=== PATIENT | male | born 1955 | race Caucasian/White ===

== ENCOUNTER 2023-11-23 11:11 | Inpatient (IN) | payer MEDICARE, SELFPAY ==
[2023-11-23] VITALS (17 sets, daily range): BP systolic 93–143; BP diastolic 72–109; PULSE 93–133; RESP 17–25; TEMP 36.6; O2SAT 91–99
--- NOTE | 2023-11-23 11:16 | ECG_ITS ---
[facility] Test Date: 2023-11-23 Pat Name: Ruslan Zuniga Department: Room: Gender: Male Battery Filler: : 1955 Requested By: Clay Lr Order Number: [id number] Ami MD: Mehran Singh M.D. Measurements Intervals [place] Rate: 135 P: 263 FL: 86 QRS: 242 QRSD: 162 T: 74 QT: 333 QTc: 500 Interpretive Statements Supraventricular tachycardia with aberrancy RIGHT AXIS DEVIATION [QRS AXIS > 100] INTRAVENTRICULAR CONDUCTION DELAY [130+ ms QRS DURATION] No previous ECG available for comparison Electronically Signed On 11-24-2023 16:26:59 BATH DESIGN SALES CONSULTANT by Mehran Singh M.D. [email or web address]/OM/[id number]
--- NOTE | 2023-11-23 11:17 | XRR_ITS ---
PROCEDURE INFORMATION: Exam: XR Chest Exam date and time: 11/23/2023 11:51 AM Age: 68 years old Clinical indication: Shortness of breath; Prior surgery; Surgery date: 6+ months; Surgery type: Heart; Additional info: SOB TECHNIQUE: Imaging protocol: Radiologic exam of the chest. Views: 1 view. COMPARISON: No relevant prior studies available. FINDINGS: Lungs: Unremarkable. No consolidation. Pleural spaces: Unremarkable. No pleural effusion. No pneumothorax. Heart/Mediastinum: Moderate cardiomegaly. Bones/joints: Metallic sternotomy wires are present. XR/XR chest 1V portable [id number] IMPRESSION: 1. No acute findings. 2. Metallic sternotomy wires are present 3. Moderate cardiomegaly
[2023-11-23 11:32] LABS: Basophils # 0.1 10^3/uL (0.0-0.1); Basophils % 0.6 %; Eosinophils % 0.3 %; Hematocrit 49.6 % (37-53); Lymphocytes # 0.7 10^3/uL (0.8-4.8); Lymphocytes % 6.2 %; Mean Corpuscular HGB Conc 33.3 g/dL (30-55); Mean Corpuscular Volume 93.1 fl (82-101); Mean Platelet Volume 9.8 fL (7.4-10.4); Monocytes # 0.8 10^3/uL (0.2-0.9); Monocytes % 6.7 %; Neutrophils # 10.04 10^3/uL (1.8-7.7); Neutrophils % 85.7 %; Nucleated Red Blood Cells % 0 %; Platelet Count 267 10^3/cmm (157-399); Red Blood Count 5.33 10^6/uL (3.85-5.65); Red Cell Distribution Width 14.4 % (12.1-15.1); White Blood Count 11.71 10^3/uL (3.29-11.43)
--- NOTE | 2023-11-23 11:41 | ED_ITS ---
HPI - SOB/Dyspnea 2 General: Chief Complaint: Shortness of Breath/Dyspnea Stated Complaint: SOB Time Seen by Provider: 11/23/23 11:13 Source: patient and EMS Mode of arrival: EMS Limitations: no limitations History of Present Illness: HPI Narrative: 68-year-old male who states that he has been having increasing shortness of breath over the last 2 days patient's never been here before he is visiting from [place] he is not a great historian he states he just had gotten over pneumonia and had been at the hospital there. He denies any chest pain states he just feels dyspneic Associated symptoms: Deny abdominal pain, chest pain, fever(s), nausea or vomiting Review of Systems 2 Const: Denies: fever(s), chills, body aches or change in appetite Eyes: Denies: blurry vision or eye discomfort ENMT: Denies: throat pain or dental pain Card: Denies: chest pain Resp: Reports: dyspnea GI: Denies: abdominal pain, nausea, vomiting or diarrhea Musc: Denies: neck pain or back pain Skin/Breast: Denies: rash Neuro: Denies: headache(s) Physical Exam 2 Const: COMMON NORMALS: patient oriented x3 HENMT: COMMON NORMALS: normocephalic and atraumatic HEAD & SCALP: n ormocephalic and atraumatic Eye: COMMON NORMALS: Equal, round and reactive pupils present and EOMs intact bilaterally PUPIL: Yes Equal, round and reactive pupils present Neck/C-Spine: COMMON NORMALS: full ROM and supple Chest: COMMONS NORMALS: normal inspection of the chest and normal palpation of entire chest wall Resp: COMMON NORMALS: normal respiratory effort, No retractions, No use of accessory muscles and clear to auscultation bilaterally AUSCULTATION: clear to auscultation bilaterally Cardio: COMMON NORMALS: regular rhythm and No murmurs present (Cardio) R ATE: tachycardic RHYTHM: regular rhythm GI: COMMON NORMALS: Normal to inspection, nondistended, normoactive bowel sounds present, Soft to palpation, non-tender and no masses PALPATION: Yes Soft to palpation Extremity: COMMON NORMALS: normal to inspection and full ROM Neuro: COMMON NORMALS: patient oriented x3, moves all extremities and no focal motor deficits Psych: COMMON NORMALS: mental status grossly normal, Normal thought process present and cooperative THOUGHT PROCESS: Normal thought process present Skin: COMMON NORMALS: no rashes or lesions noted and no wounds GENERAL SKIN EXAM: no rashes or lesions noted Course 2 Vital Signs: Vital signs: Vital Signs Temperature 97.8 F 11/23/23 11:12 Pulse Rate 106 H 11/23/23 13:02 Respiratory Rate 25 H 11/23/23 13:02 Blood Pressure 124/95 11/23/23 13:02 Pulse Oximetry 95 11/23/23 13:02 Oxygen Delivery Me thod Room Air 11/23/23 13:02 MDM - SOB/Dyspnea Medical Decision Making Patient presents here with shortness of breath CT shows a pneumonia also has elevated BNP with possible CHF we will start antibiotics did give a dose of Lasix spoke to the hospitalist will admit. Medical Records I reviewed the patient's medical records. Lab Data I reviewed the patient's lab results. 11/23/23 10:57 11/23/23 10:57 Labs/Radiology: Radiology Impressions Chest X-Ray 11/23/23 11:17 IMPRESSION: 1. No acute findings. 2. Metallic sternotomy wires are present 3. Moderate cardiomegaly Chest CTA 11/23/23 11:59 IMPRESSION: 1. Negative pulmonary embolism. 2. The aorta and left ventricle are not filled with contrast. 3. Metallic sternotomy wires are present. 4. Bilateral pleural effusions 5 Bilateral perihilar and lower lobe pneumonia Laboratory Results WBC 11.71 10^3/uL (3.29-11.43) H 11/23/23 10:57 RBC 5.33 10^6/uL (3.85-5.65) 11/23/23 10:57 Hgb 16.50 g/dL (11.27-16.99) 11/23/23 10:57 Hct 49.6 % (37-53) 11/23/23 10:57 MCV 93.1 fl (82-101) 11/23/23 10:57 MCH 31.0 pg (27-33) 11/23/23 10:57 MCHC 33.3 g/dL (30-55) 11/23/23 10:57 RDW 14.4 % (12.1-15.1) 11/23/23 10:57 Plt Count 267 10^3/cmm (157-399) 11/23/23 10:57 MPV 9.8 fL (7.4-10.4) 11/23/23 10:57 Neut % (Auto) 85.7 % 11/23/23 10:57 Lymph % (Auto) 6.2 % 11/23/23 10:57 Dare % (Auto) 6.7 % 11/23/23 10:57 Eos % (Auto) 0.3 % 11/23/23 10:57 Baso % (Auto) 0.6 % 11/23/23 10:57 Neut # (Auto) 10.04 10^3/uL (1.8-7.7) H 11/23/23 10:57 Lymph # (Auto) 0.7 10^3/uL (0.8-4.8) L 11/23/23 10:57 Dare # (Auto) 0.8 10^3/uL (0.2-0.9) 11/23/23 10:57 Eos # (Auto) 0.0 10^3/uL (0.0-0.8) 11/23/23 10:57 Baso # (Auto) 0.1 10^3/uL (0.0-0.1) 11/23/23 10:57 Nucleated RBC % (auto) 0 % 11/23/23 10:57 Nucleated RBCs # 0.0 /100WBC 11/23/23 10:57 PT 14.90 SECONDS (12.1-14.9) 11/23/23 10:57 INR 1.13 (0.8-1.2) 11/23/23 10:57 D-Dimer 0.70 ug/mLFEU (0-0.59) H 11/23/23 10:57 Sodium 132 mmol/L (136-145) L 11/23/23 10:57 Potassium 3.8 mmol/L (3.5-5.1) 11/23/23 10:57 Chloride 94 mmol/L (98-107) L 11/23/23 10:57 Carbon Dioxide 29 mmol/L (22-29) 11/23/23 10:57 Anion Gap 12.8 (5-19) 11/23/23 10:57 BUN 23 mg/dL (8-23) 11/23/23 10:57 Creatinine 0.9 mg/dL (0.7-1.2) 11/23/23 10:57 GFR Calculation 83.4 mL/min (90-130) L 11/23/23 10:57 Glucose 108 mg/dL (65-115) 11/23/23 10:57 Calculated Osmolality 278 mOsm/kg (285-295) L 11/23/23 10:57 Calcium 9.9 mg/dL (8.5-10.5) 11/23/23 10:57 Magnesium 1.9 mg/dL (1.7-2.3) 11/23/23 10:57 Magnesium Cancelled 11/23/23 10:57 Total Bilirubin 1.1 mg/dL (0.15-1.2) 11/23/23 10:57 AST 26 U/L (0-40) 11/23/23 10:57 ALT 16 U/L (0-41) 11/23/23 10:57 Alkaline Phosphatase 134 U/L (40-130) H 11/23/23 10:57 Troponin T Baseline 42 ng/L (0-15) H 11/23/23 10:57 Troponin T 120 Minute 36.84 ng/L (0-15) H 11/23/23 12:53 Delta Troponin T -5.16 ABS# (0-10) L 11/23/23 12:53 NT-Pro-B Natriuret Pep 51745 pg/mL (0-125) H 11/23/23 10:57 Total Protein 7.5 g/dL (6.6-8.7) 11/23/23 10:57 Albumin 3.9 g/dL (3.5-5.2) 11/23/23 10:57 Globulin 3.6 g/dL (1.3-4.6) 11/23/23 10:57 All radiology interpretation(s) finalized by discharge EKG Data EKG 2: I personally reviewed and interpreted this EKG as follows: EKG Interpretation Date: 11/23/23 EKG interpretation time: 11:51 Interpretation: atrial tachycardion no st elevation qrs 176 qtc 483 Discharge Plan Discharge Patient Disposition: Admitted As Inpatient Clinical Impression: Congestive heart failure, Community acquired pneumonia Condition: Stable Prescriptions: No Action No Known Home Medications Coding Level of Care Code ED Sales Producer for Chg Marleni
[2023-11-23 11:43] LABS: INR 1.13 (0.8-1.2)
[2023-11-23] MEDS: metoprolol tartrate 1 mg/1 mL SDV 5 mL 5 MG IVP ×2 (11:43→12:59)
[2023-11-23] MEDS: sodium chloride 0.9% 500 ML 999 ML IV (11:45)
[2023-11-23 11:51] LABS: Troponin(5th) Baseline 42 ng/L (0-15)
[2023-11-23 11:52] LABS: Alanine Aminotransferase 16 U/L (0-41); Albumin Level 3.9 g/dL (3.5-5.2); Alkaline Phosphatase 134 U/L (40-130); Anion Gap 12.8 (5-19); Aspartate Amino Transferase 26 U/L (0-40); Blood Urea Nitrogen 23 mg/dL (8-23); Calcium 9.9 mg/dL (8.5-10.5); Carbon Dioxide 29 mmol/L (22-29); Chloride 94 mmol/L (98-107); Globulin 3.6 g/dL (1.3-4.6); Glomerular Filtration Rate 83.4 mL/min (90-130); Glucose 108 mg/dL (65-115); Magnesium 1.9 mg/dL (1.7-2.3); Osmolality Calculated 278 mOsm/kg (285-295); Potassium 3.8 mmol/L (3.5-5.1); Sodium 132 mmol/L (136-145); Total Bilirubin 1.1 mg/dL (0.15-1.2); Total Protein 7.5 g/dL (6.6-8.7)
--- NOTE | 2023-11-23 11:54 | PC.PHAR ---
pt states he takes no rx or otc medications-pt states he was in the hospital in [facility] and was prescribed some medications but states they got lost or stolen states he filled them at [facility] in [facility] called emmanuelle they [phone] havent filled anything for the pt since 08/27/23 30d/s for lexapro 10mg daily-[facility] [place] [phone] they have rxs on hold from 08/06/2023 from a metoprolol succ er 25mg daily,lasix 40mg daily and lisinopril 5mg daily not filled just on hold-[facility]-
--- NOTE | 2023-11-23 11:59 | CTR_ITS ---
PROCEDURE INFORMATION: Exam: CTA Chest With Contrast Exam date and time: 11/23/2023 12:33 PM Age: 68 years old Clinical indication: Shortness of breath; Prior surgery; Surgery date: 6+ months; Surgery type: Heart; Additional info: SOB TECHNIQUE: Imaging protocol: Computed tomographic angiography of the chest with contrast. Exam focused on the arteries. 3D rendering (Not supervised by radiologist): MIP and/or 3D reconstructed images were created by the technologist. Radiation optimization: All CT scans at this facility use at least one of these dose optimization techniques: automated exposure control; mA and/or kV adjustment per patient size (includes targeted exams where dose is matched to clinical indication); or iterative reconstruction. Contrast material: OMNI 350; Contrast volume: 82 ml; Contrast route: INTRAVENOUS (IV); COMPARISON: CR (CHEST, ) 11/23/2023 11:51 AM RADIATION DOSE METRICS: Total DLP (mGy-cm): 224.37 FINDINGS: Pulmonary arteries: Normal. No pulmonary emboli. Aorta: Not opacified with contrast. No gross abnormality is seen. No aortic aneurysm. No aortic dissection. Lungs: Bilateral perihilar and lower lobe parenchymal densities. These findings are consistent with pneumonia No masses. Pleural spaces: Unremarkable. No pneumothorax. No pleural effusion. Heart: Left ventricle is not opacified with contrast which likely is due to timing of the contrast bolus. No cardiomegaly. No pericardial effusion. Lymph nodes: Unremarkable. No enlarged lymph nodes. Bones/joints: Metallic sternotomy wires are present. No acute fracture. Soft tissues: Unremarkable. CT/CT angio chest PE protcl [id number] IMPRESSION: 1. Negative pulmonary embolism. 2. The aorta and left ventricle are not filled with contrast. 3. Metallic sternotomy wires are present. 4. Bilateral pleural effusions 5 Bilateral perihilar and lower lobe pneumonia
[2023-11-23 12:01] LABS: NT Pro B Type Natriuretic Pept 29029 pg/mL (0-125)
[2023-11-23] MEDS: iohexol 350 mg/mL 500 mL Btl (per mL) IV (12:35)
--- NOTE | 2023-11-23 13:15 | PC.NURSE ---
this RN took over pt care at 1300
--- NOTE | 2023-11-23 13:16 | ECG_ITS ---
[facility] Test Date: 2023-11-23 Pat Name: Ruslan Zuniga Department: Room: Gender: Male Psychiatry Physician: : 1955 Requested By: Clay Lr Order Number: [id number] Ami MD: Mehran Singh M.D. Measurements Intervals [place] Rate: 106 P: 241 NC: 144 QRS: 259 QRSD: 176 T: 77 QT: 421 QTc: 559 Interpretive Statements ECTOPIC ATRIAL TACHYCARDIA INTRAVENTRICULAR CONDUCTION DELAY [130+ ms QRS DURATION] Compared to ECG 11/23/2023 11:24:27 Junctional tachycardia no longer present Right-axis deviation no longer present Electronically Signed On 11-25-2023 10:54:49 TREAD BOOKER by Mehran Singh M.D. [id number]
[2023-11-23 13:28] LABS: Troponin 5 2HR 36.84 ng/L (0-15)
[2023-11-23 13:36] LABS: Troponin 5 2HR Delta -5.16 ABS# (0-10)
[2023-11-23] MEDS: FUROsemide 10 mg/mL SDV 4mL 40 MG IVP (13:49)
[2023-11-23] MEDS: cefTRIAXone 1,000 MG in sodium chloride 0.9% (plus) 50 ML 100 MG IV (13:52)
[2023-11-23] MEDS: azithromycin 500 MG in sodium chloride 0.9% 250 ML 250 MG IV (14:23)
--- NOTE | 2023-11-23 14:38 | P.HP_ITS ---
Providers/Chief Complaint 2 Chief Complaint: SOB History of Present Illness Ruslan Zuniga is a 68 year old male with a past medical history of CAD status post multiple stents, history of CABG, history of COPD, history of smoking, hypertension hyperlipidemia, who presents to [facility] due to shortness of breath, nonproductive cough, fatigue, malaise for the last few days. Patient tells me that for the last few days, has had fatigue, malaise, nonproductive cough, shortness of breath with rest and exertion no lower extreme edema no chest pain he tells me about a month ago he had pneumonia he got treated for but felt like he never got better, no sick contacts, recent travel, no calf pain, calf swelling, currently on 2 L, not requiring oxygen at home, he is an active smoker, Review of Systems 2 Const: Reports: fever(s), chills, fatigue and malaise Card: Denies: chest pain Resp: Reports: dyspnea and non-productive cough GI: Denies: abdominal pain : Denies: flank pain or difficulty urinating Skin/Breast: Denies: rash Neuro: Denies: headache(s) or weakness in extremities Medications/Allergies Home Medications Medication Instructions Recorded Confirmed Last Taken Type No Known Home Medications 11/23/23 11/23/23 Unknown History Allergies Allergy/AdvReac Type Severity Reaction Status Date / Time No Known Allergies Allergy Verified 11/23/23 11:53 PFSH Acute 2 PFSH: Medical History (Updated 11/23/23 @ 14:45 by Mynor Garcia MD) HLD (hyperlipidemia) HTN (hypertension) with goal to be determined COPD (chronic obstructive pulmonary disease) History of CAD (coronary artery disease) Surgical History (Updated 11/23/23 @ 14:41 by Mynor Garcia MD) History of coronary artery bypass graft Family History (Updated 11/23/23 @ 14:41 by Mynor Garcia MD) Mother CAD (coronary artery disease) Sister CAD (coronary artery disease) Other Bleeding disorder Social History (Updated 11/23/23 @ 14:41 by Mynor Garcia MD) Smoking and tobacco/nicotine status: current every day tobacco/nicotine user Alcohol intake: never Substance/Drug Use: never Vitals/I&O/Wt Last Vital Signs Temp 97.8 F 11/23/23 11:12 Pulse 106 H 11/23/23 13:02 Resp 25 H 11/23/23 13:02 BP 124/95 11/23/23 13:02 Pulse Ox 95 11/23/23 13:02 O2 Del Method Room Air 11/23/23 13:02 11/22/23 11/23/23 11/23/23 22:59 06:59 14:59 Intake Total 550 / 550 Balance 550 / 550 Weight last 48 hrs Weight 49.895 kg Physical Exam 2 Const: COMMON NORMALS: no acute distress and patient oriented x3 OTHER: temporal muscle wasting, HENMT: COMMON NORMALS: normocephalic HEAD & SCALP: normocephalic Eye: COMMON NORMALS: Equal, round and reactive pupils present Neck/C-Spine: COMMON NORMALS: no JVD Lymph: LYMPHATIC: no lymphadenopathy noted Chest: COMMONS NORMALS: normal inspection of the chest Resp: COMMON NORMALS: normal respiratory effort, No retractions and No use of accessory muscles AUSCULTATION: wheezes Cardio: COMMON NORMALS: regular rate, regular rhythm, S1 normal heart sound present and S2 normal heart sound present RATE: regular rate RHYTHM: r egular rhythm HEART SOUNDS: S1 normal heart sound present and S2 normal heart sound present GI: COMMON NORMALS: Normal to inspection, nondistended, normoactive bowel sounds present, Soft to palpation and non-tender Extremity: COMMON NORMALS: no calf tenderness and no pedal edema Neuro: COMMON NORMALS: patient oriented x3, CN's II-XII intact bilaterally, moves all extremities and no focal motor deficits Psych: COMMON NORMALS: mental status grossly normal Data 11/23/23 10:57 11/23/23 10:57 A&P Assessment and plan (1) Community acquired pneumonia: (2) Congestive heart failure: (3) COPD exacerbation: Plan Community-acquired pneumonia ? Flu ? COVID, ? Sputum cultures ?blood cultures collected ? Rocephin, azithromycin, ? Solu-Medrol ? Full code, ? Lovenox for DVT prophylaxis, COPD exacerbation, ? DuoNeb, ? Solu-Medrol History of CAD, history of CABG, ? Serial EKGs. Troponins were telemetry monitoring CHF ?BNP is over 28,000, does not look fluid overloaded ? Hold off on diuresis Attestations 2 Medical Necessity Statement*: Patient requires hospitalization with pneumonia, inpatient, greater than 2 midnights Diagnoses Community acquired pneumonia J18.9 Congestive heart failure I50.9 COPD exacerbation J44.1
[2023-11-23 14:55] LABS: Influenza A by IFA negative (Negative); Influenza B by IFA negative (Negative); SARS Covid-2 Antigen negative (Negative)
[2023-11-23 14:57] LABS: Lactic Sepsis W/Reflex 1.6 mmol/L (0.5-2.2)
[2023-11-23 14:58] LABS: C Reactive Protein 14.7 mg/L (0.0-4.9)
[2023-11-23 15:05] LABS: Procalcitonin 0.07 ng/mL (0-0.5)
--- NOTE | 2023-11-23 17:16 | ECG_ITS ---
[facility] Test Date: 2023-11-23 Pat Name: Ruslan Zuniga Department: Room: ED Gender: Male Central Office Installer: : 1955 Requested By: Clay Lr Order Number: [id number] Ami MD: Mehran Singh M.D. Measurements Intervals [place] Rate: 97 P: 59 SC: 213 QRS: 251 QRSD: 173 T: 73 QT: 409 QTc: 520 Interpretive Statements SINUS RHYTHM WITH FIRST DEGREE AV BLOCK WITH OCCASIONAL VENTRICULAR PREMATURE COMPLEXES LEFT ATRIAL ENLARGEMENT [-0.15mV P-WAVE IN V1/V2] INTRAVENTRICULAR CONDUCTION DELAY [130+ ms QRS DURATION] Compared to ECG 11/23/2023 11:51:30 Ventricular premature complex(es) now present First degree AV block now present Atrial abnormality now present Electronically Signed On 11-25-2023 10:54:22 HYDROGEN POWER PLANT ENGINEER by Mehran Singh M.D. [id number]
[2023-11-23 17:18] LABS: Troponin 5 6HR 38.35 ng/L (0-15)
[2023-11-23 17:22] LABS: Troponin 5 6HR Delta -3.65 ng/L (0-12)
[2023-11-23 18:35] LABS: Chol HDL Ratio 5.21 mg/dL (1.0-5.00); Cholesterol 177 mg/dL (0-200); HDL Cholesterol 34 mg/dL (60-100); LDL Cholesterol Calculated 117 mg/dL (50-129); LDL HDL Ratio 3.44 RATIO (0.00-3.22); Thyroid Stimulating Hormone 5.79 uIU/mL (0.27-4.20); Triglycerides 131 mg/dL (0-150)
[2023-11-23] MEDS: pantoprazole 40 mg SDV IVP (19:58)
[2023-11-23] MEDS: methylPREDNISolone sod succ 125 mg/2 mL INJ IVP (20:02)
[2023-11-23] MEDS: enoxaparin 40 mg/0.4 mL Syringe SUBCUT (20:02)
[2023-11-23] MEDS: aspirin 81 mg EC Tablet PO (20:04)
[2023-11-23] MEDS: ipratropium-albuterol 3 mL Neb INHALATION (20:39)
[2023-11-23 20:56] LABS: Add Urine Microscopic? NO; Charge for UA Resulting for Rev
[2023-11-23 21:00] LABS: Bilirubin Urine Neg (Negative); Blood Urine Neg (Negative); Glucose Urine UA Norm (Normal); Ketones Urine Negative (Negative); Leukocyte Esterase Urine Negative (Negative); Nitrate Urine Negative (Negative); Protein Urine Neg (Negative); Urine Appearance Clear (CLEAR); Urine Color Colorless (Yellow); Urobilinogen Urine Norm (Negative); pH Urine 5 (5-7)
[2023-11-23 21:19] LABS: Estmated Average Glucose 120; Hemoglobin A1C 5.8 % (4.0-6.0)
[2023-11-23] MEDS: atorvastatin 40 mg Tablet PO (21:29)
[2023-11-23] MEDS: zolpidem 5 mg Tablet PO (23:28)
[2023-11-24] VITALS (16 sets, daily range): BP systolic 107–133; BP diastolic 63–89; PULSE 83–97; RESP 16–26; TEMP 36.4–36.9; O2SAT 91–96
[2023-11-24 04:16] LABS: Basophils % 0.3 %; Hematocrit 49.6 % (37-53); Lymphocytes # 0.5 10^3/uL (0.8-4.8); Lymphocytes % 6.8 %; Mean Corpuscular HGB Conc 34.1 g/dL (30-55); Mean Corpuscular Hemoglobin 30.8 pg (27-33); Mean Corpuscular Volume 90.5 fl (82-101); Mean Platelet Volume 9.8 fL (7.4-10.4); Monocytes # 0.1 10^3/uL (0.2-0.9); Monocytes % 1.1 %; Neutrophils # 6.02 10^3/uL (1.8-7.7); Neutrophils % 91.5 %; Nucleated Red Blood Cells % 0 %; Platelet Count 258 10^3/cmm (157-399); Red Blood Count 5.48 10^6/uL (3.85-5.65); Red Cell Distribution Width 14.1 % (12.1-15.1); White Blood Count 6.58 10^3/uL (3.29-11.43)
[2023-11-24 04:43] LABS: Alanine Aminotransferase 14 U/L (0-41); Albumin Level 3.2 g/dL (3.5-5.2); Alkaline Phosphatase 119 U/L (40-130); Anion Gap 15.7 (5-19); Aspartate Amino Transferase 18 U/L (0-40); Blood Urea Nitrogen 21 mg/dL (8-23); Calcium 8.7 mg/dL (8.5-10.5); Carbon Dioxide 24 mmol/L (22-29); Chloride 99 mmol/L (98-107); Creatinine Clr Calc Pharmacy 60.6363; Globulin 3.4 g/dL (1.3-4.6); Glomerular Filtration Rate 111.5 mL/min (90-130); Glucose 169 mg/dL (65-115); Magnesium 1.9 mg/dL (1.7-2.3); Osmolality Calculated 287 mOsm/kg (285-295); Phosphorus 3.7 mg/dL (2.5-4.5); Potassium 3.7 mmol/L (3.5-5.1); Sodium 135 mmol/L (136-145); Total Protein 6.6 g/dL (6.6-8.7)
[2023-11-24 05:13] LABS: NT Pro B Type Natriuretic Pept 31775 pg/mL (0-125)
[2023-11-24] MEDS: aspirin 81 mg EC Tablet PO (08:14)
[2023-11-24] MEDS: metoprolol succinate ER (24 HR) 25 mg Tablet 12.5 MG PO (08:14)
[2023-11-24] MEDS: methylPREDNISolone sod succ 40 mg/mL INJ IVP ×3 (08:15→23:47)
[2023-11-24] MEDS: ipratropium-albuterol 3 mL Neb INHALATION ×4 (08:23→19:22)
[2023-11-24] MEDS: cefTRIAXone 1,000 MG in sodium chloride 0.9% (plus) 50 ML 100 MG IV (14:13)
[2023-11-24] MEDS: morphine 4 mg/mL SDV 1 mL 1 MG IVP (14:20)
[2023-11-24] MEDS: azithromycin 500 MG in sodium chloride 0.9% 250 ML 250 MG IV (15:00)
--- NOTE | 2023-11-24 16:56 | P.PN_ITS ---
Subjective 2 Subjective: Patient was seen this morning, continues to have wheezing and crackles, no chest pain, no palpitations Vitals/I&O/Wt Last Vital Signs Temp 97.6 F 11/24/23 15:36 Pulse 93 11/24/23 15:36 Resp 16 11/24/23 15:36 BP 107/63 11/24/23 15:36 Pulse Ox 93 11/24/23 15:36 O2 Del Method Room Air 11/24/23 15:36 O2 Flow Rate 2 11/23/23 20:15 11/24/23 11/24/23 11/24/23 06:59 14:59 22:59 Intake Total 720 / 720 300 / 1020 Balance 720 / 720 300 / 1020 Weight last 48 hrs Weight 51.284 kg Weight 49.895 kg Physical Exam 2 Const: COMMON NORMALS: no acute distress and patient oriented x3 Resp: COMMON NORMALS: normal respiratory effort, No retractions and No use of accessory muscles AUSCULTATION: crackles and wheezes Cardio: COMMON NORMALS: regular rate, regular rhythm, S1 normal heart sound present and S2 normal heart sound present RATE: regular rate RHYTHM: r egular rhythm HEART SOUNDS: S1 normal heart sound present and S2 normal heart sound present GI: COMMON NORMALS: Normal to inspection, nondistended, normoactive bowel sounds present and non-tender Extremity: COMMON NORMALS: no pedal edema Neuro: COMMON NORMALS: patient oriented x3 Psych: COMMON NORMALS: mental status grossly normal Data 11/24/23 03:23 11/24/23 03:23 A&P Assessment and plan (1) Community acquired pneumonia: (2) Congestive heart failure: (3) COPD exacerbation: Plan Community-acquired pneumonia ? Flu ? COVID, ? Sputum cultures ?blood cultures collected ? Rocephin, azithromycin, ? Solu-Medrol ? Full code, ? Lovenox for DVT prophylaxis, COPD exacerbation, ? DuoNeb, ? Solu-Medrol History of CAD, history of CABG, ? Serial EKGs. Troponins were telemetry monitoring CHF ?BNP is over 28,000, does not look fluid overloaded ? Hold off on diuresis Attestations 2 Medical Necessity Statement*: Patient requires hospitalization for [facility] pneumonia, requiring IV antibiotics Diagnoses Community acquired pneumonia J18.9 Congestive heart failure I50.9 COPD exacerbation J44.1
[2023-11-24] MEDS: pantoprazole 40 mg SDV IVP (18:18)
[2023-11-24] MEDS: enoxaparin 40 mg/0.4 mL Syringe SUBCUT (18:18)
[2023-11-24] MEDS: atorvastatin 40 mg Tablet PO (20:10)
[2023-11-25] VITALS (13 sets, daily range): BP systolic 104–120; BP diastolic 64–77; PULSE 85–95; RESP 16–20; TEMP 36.4–36.7; O2SAT 92–95
[2023-11-25 03:21] LABS: Basophils % 0.1 %; Hematocrit 46.2 % (37-53); Lymphocytes # 0.4 10^3/uL (0.8-4.8); Lymphocytes % 2.3 %; Mean Corpuscular HGB Conc 32.9 g/dL (30-55); Mean Corpuscular Hemoglobin 30.8 pg (27-33); Mean Corpuscular Volume 93.7 fl (82-101); Mean Platelet Volume 9.5 fL (7.4-10.4); Monocytes # 0.5 10^3/uL (0.2-0.9); Neutrophils # 17.04 10^3/uL (1.8-7.7); Neutrophils % 93.4 %; Nucleated Red Blood Cells % 0 %; Platelet Count 276 10^3/cmm (157-399); Red Blood Count 4.93 10^6/uL (3.85-5.65); Red Cell Distribution Width 14.4 % (12.1-15.1); White Blood Count 18.22 10^3/uL (3.29-11.43)
[2023-11-25 03:53] LABS: NT Pro B Type Natriuretic Pept 15330 pg/mL (0-125)
[2023-11-25 03:54] LABS: Alanine Aminotransferase 11 U/L (0-41); Albumin Level 3.1 g/dL (3.5-5.2); Alkaline Phosphatase 101 U/L (40-130); Anion Gap 18.1 (5-19); Aspartate Amino Transferase 14 U/L (0-40); Blood Urea Nitrogen 27 mg/dL (8-23); Calcium 8.5 mg/dL (8.5-10.5); Carbon Dioxide 23 mmol/L (22-29); Chloride 101 mmol/L (98-107); Globulin 2.8 g/dL (1.3-4.6); Glomerular Filtration Rate 95.6 mL/min (90-130); Glucose 154 mg/dL (65-115); Osmolality Calculated 294 mOsm/kg (285-295); Potassium 4.1 mmol/L (3.5-5.1); Sodium 138 mmol/L (136-145); Total Bilirubin 0.5 mg/dL (0.15-1.2); Total Protein 5.9 g/dL (6.6-8.7)
--- NOTE | 2023-11-25 06:00 | USCV_ITS ---
Ruslan Zuniga Age: 68 Gender: M : 1955 Exam Date: 11/25/2023 11:11 Ordering Phys: Mynor Garcia MD Technologist: Dwaine Arias Exam Location[place] [facility] [place] [facility] [place] Indication: cardiomyopathy ? ef BP: 132 / 68 HR: 137 Rhythm: Sinus Technical Quality: Adequate MEASUREMENTS (Male / Female) Normal Values 2D ECHO LV Diastolic Diameter PLAX 5.2 cm 4.2 - 5.9 / 3.9 - 5.3 cm LV Systolic Diameter PLAX 4.9 cm IVS Diastolic Thickness 1.3 cm 0.6 - 1.0 / 0.6 - 0.9 cm IVS Systolic Thickness 1.7 cm LVPW Diastolic Thickness 1.6 cm 0.6 - 1.0 / 0.6 - 0.9 cm LVPW Systolic Thickness 1.7 cm LVOT Diameter 2.0 cm LV Ejection Fraction 2D Teich 13.7 % LV Ejection Fraction MOD 2C 8.2 % LV Ejection Fraction 2C AL 7.4 % LA Diameter 4.0 cm M-MODE Aortic Annulus Diameter 4.0 cm LA Ao Ratio MM 1.0 MV E Point Septal Separation 1.7 cm DOPPLER AV Peak Velocity 106.0 cm/s LVOT Peak Velocity 62.0 cm/s AV Area Cont Eq vti 1.8 cm squared AV Area Cont Eq pk 1.9 cm squared MV Area PHT 4.6 cm squared Mitral E to A Ratio 5.8 MV E' Velocity 68.5 cm/s Mitral E to MV E' Ratio 9.6 Mitral E to LV E' Lateral Ratio 7.8 Mitral E to LV E' Septal Ratio 12.5 TR Peak Velocity 214.3 cm/s TR Peak Gradient 18.4 mmHg TV Peak E Velocity 97.0 cm/s Right Atrial Pressure 3.0 mmHg Pulmonary Artery Systolic Pressu 21.4 mmHg RV Acceleration Time 0.1 s FINDINGS Left Ventricle Severe diffuse hypokinesia of the left-ventricular with an ejection fraction of around 17%. Mildly dilated LV cavity Right Ventricle Normal RV size with slightly diminished ejection fraction Right Atrium Mildly increased right atrial size. Left Atrium Mildly increased left atrial size. Mitral Valve Thickened mitral valve with moderate mitral annular calcification. Trace mitral valve regurgitation. Aortic Valve Thickened aortic valve. Tricuspid Valve Trace of tricuspid valve regurgitation. Pulmonic Valve No gross abnormalities noted Pericardium Normal pericardium without effusion. Aorta Normal aortic annulus size. IVC Inferior vena cava not visualized. CONCLUSIONS Severe diffuse hypokinesia of the left-ventricular with an ejection fraction of around 17%. Mildly dilated LV cavity. Mild biatrial enlargementThickened mitral valve with moderate mitral annular calcification. Trace mitral valve regurgitation. Thickened aortic valve. Trace of tricuspid valve regurgitation. There is no pericardial effusion. There are no intracardiac masses. No similar previous studies are available for comparison Dr Sandy Forbes MD FAC (Electronically Signed) Final Date: 25 November 2023 18:46 S
[2023-11-25] MEDS: ipratropium-albuterol 3 mL Neb INHALATION ×4 (08:04→21:05)
[2023-11-25] MEDS: methylPREDNISolone sod succ 40 mg/mL INJ IVP ×2 (08:41→16:45)
[2023-11-25] MEDS: aspirin 81 mg EC Tablet PO (08:42)
[2023-11-25] MEDS: metoprolol succinate ER (24 HR) 25 mg Tablet 12.5 MG PO (08:42)
[2023-11-25] MEDS: azithromycin 500 MG in sodium chloride 0.9% 250 ML 250 MG IV (14:41)
--- NOTE | 2023-11-25 15:16 | P.PN_ITS ---
Subjective 2 Subjective: Patient was seen this morning, he continues to have a cough, does report shortness of breath, no fevers, no chills, no lightheadedness, dizziness, does report fatigue and malaise Vitals/I&O/Wt Last Vital Signs Temp 97.6 F 11/25/23 12:00 Pulse 91 11/25/23 12:00 Resp 16 11/25/23 12:00 BP 119/77 11/25/23 12:00 Pulse Ox 94 11/25/23 12:00 O2 Del Method Room Air 11/25/23 12:00 O2 Flow Rate 2 11/23/23 20:15 11/25/23 11/25/23 11/25/23 06:59 14:59 22:59 Intake Total 480 / 2460 840 / 840 Balance 480 / 2460 840 / 840 Weight last 48 hrs Weight 51.284 kg Weight 51.284 kg Physical Exam 2 Const: COMMON NORMALS: no acute distress and patient oriented x3 Resp: COMMON NORMALS: normal respiratory effort, No retractions and No use of accessory muscles AUSCULTATION: wheezes Cardio: COMMON NORMALS: regular rate, regular rhythm, S1 normal heart sound present and S2 normal heart sound present RATE: regular rate RHYTHM: r egular rhythm HEART SOUNDS: S1 normal heart sound present and S2 normal heart sound present GI: COMMON NORMALS: Normal to inspection, nondistended, normoactive bowel sounds present and non-tender Extremity: COMMON NORMALS: no pedal edema Neuro: COMMON NORMALS: patient oriented x3 Psych: COMMON NORMALS: mental status grossly normal Data 11/25/23 02:48 11/25/23 02:48 A&P Assessment and plan (1) Community acquired pneumonia: (2) Congestive heart failure: (3) COPD exacerbation: Plan Community-acquired pneumonia ? Flu ? COVID, ? Sputum cultures ?blood cultures collected ? Rocephin, azithromycin, ? Solu-Medrol ? Full code, ? Lovenox for DVT prophylaxis, COPD exacerbation, ? DuoNeb, ? Solu-Medrol History of CAD, history of CABG, ? Serial EKGs. Troponins were telemetry monitoring CHF ?BNP is over 28,000, does not look fluid overloaded ? Hold off on diuresis ? Cardiac echo Attestations 2 Medical Necessity Statement*: Patient requires hospitalization for community-acquired pneumonia, COPD, history of CAD Diagnoses Community acquired pneumonia J18.9 Congestive heart failure I50.9 COPD exacerbation J44.1
[2023-11-25] MEDS: cefTRIAXone 1,000 MG in sodium chloride 0.9% (plus) 50 ML 100 MG IV (16:11)
[2023-11-25] MEDS: enoxaparin 40 mg/0.4 mL Syringe SUBCUT (17:48)
[2023-11-25] MEDS: pantoprazole 40 mg SDV IVP (17:48)
--- NOTE | 2023-11-25 19:09 | ECG_ITS ---
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 Interpretive Statements NAME OF STUDY: LEXISCAN SESTAMIBI STRESS TEST INDICATION: Low EF, PROCEDURE: At the baseline, the EKG revealed normal sinus rhythm with a first-degree AV block. Nonspecific IVCD. Possible old lateral wall TN. Features of biatrial enlargement. The baseline heart was 88 bpm with a blood pressue of 142/80 mm of Hg Lexiscan was infused over a period of 20 seconds. A total of 0.4 milligrams of Lexiscan was infused. The stress phase was continued for a total of 5 minutes. Heart rate at the end of the stress phase was 100 bpm with a blood pressure 150/84 mm of Hg. The EKG at the peak infusion revealed no significant changes. Sestamibi was injected 20 seconds after the Lexiscan infusion. Heart rate at the end of the recovery phase was 91 bpm with a blood pressure of 128/84 mm of Hg. CONCLUSION: 1. No significant EKG changes with the LexiScan infusion 2. No LexiScan induced chest pain or cardiac arrhythmia 3. Normal blood pressure and heart rate response 4. Sestamibi/sestamibi perfusion scan pending; see separate report. Electronically Signed On 11-29-2023 18:25:19 IT LEAD by Sandy Forbes M.D. [id number]
[2023-11-25] MEDS: acetaminophen 325 mg Tablet 650 MG PO (21:20)
[2023-11-25] MEDS: ALPRAZolam 0.5 mg Tablet 0.25 MG PO (21:21)
[2023-11-25] MEDS: atorvastatin 40 mg Tablet PO (21:22)
[2023-11-26] VITALS (13 sets, daily range): BP systolic 115–152; BP diastolic 74–86; PULSE 74–106; RESP 16–18; TEMP 36.4–37; O2SAT 92–97
[2023-11-26] MEDS: methylPREDNISolone sod succ 40 mg/mL INJ IVP ×3 (00:48→16:59)
[2023-11-26 07:03] LABS: Basophils % 0.1 %; Lymphocytes # 0.3 10^3/uL (0.8-4.8); Lymphocytes % 2.1 %; Mean Corpuscular HGB Conc 32.4 g/dL (30-55); Mean Corpuscular Hemoglobin 30.9 pg (27-33); Mean Corpuscular Volume 95.3 fl (82-101); Mean Platelet Volume 9.2 fL (7.4-10.4); Monocytes # 0.3 10^3/uL (0.2-0.9); Monocytes % 2.1 %; Neutrophils % 93.9 %; Nucleated Red Blood Cells % 0 %; Platelet Count 253 10^3/cmm (157-399); Red Blood Count 4.72 10^6/uL (3.85-5.65); Red Cell Distribution Width 14.5 % (12.1-15.1); White Blood Count 16.07 10^3/uL (3.29-11.43)
[2023-11-26 07:17] LABS: Alanine Aminotransferase 10 U/L (0-41); Albumin Level 3.1 g/dL (3.5-5.2); Alkaline Phosphatase 85 U/L (40-130); Anion Gap 11.9 (5-19); Aspartate Amino Transferase 21 U/L (0-40); Blood Urea Nitrogen 25 mg/dL (8-23); Calcium 8.5 mg/dL (8.5-10.5); Carbon Dioxide 27 mmol/L (22-29); Chloride 103 mmol/L (98-107); Globulin 2.7 g/dL (1.3-4.6); Glomerular Filtration Rate 95.6 mL/min (90-130); Glucose 126 mg/dL (65-115); Magnesium 2.2 mg/dL (1.7-2.3); Osmolality Calculated 292 mOsm/kg (285-295); Phosphorus 3.5 mg/dL (2.5-4.5); Potassium 3.9 mmol/L (3.5-5.1); Sodium 138 mmol/L (136-145); Total Bilirubin 0.3 mg/dL (0.15-1.2); Total Protein 5.8 g/dL (6.6-8.7)
[2023-11-26] MEDS: regadenoson 0.4 Mg/5 ml Syringe IVP (07:18)
[2023-11-26 07:28] LABS: NT Pro B Type Natriuretic Pept 16310 pg/mL (0-125)
[2023-11-26] MEDS: aspirin 81 mg EC Tablet PO (08:33)
[2023-11-26] MEDS: ALPRAZolam 0.5 mg Tablet 0.25 MG PO (08:33)
[2023-11-26] MEDS: metoprolol succinate ER (24 HR) 25 mg Tablet 12.5 MG PO (08:34)
[2023-11-26] MEDS: ipratropium-albuterol 3 mL Neb INHALATION ×3 (11:18→19:44)
[2023-11-26] MEDS: azithromycin 500 MG in sodium chloride 0.9% 250 ML 250 MG IV (14:10)
--- NOTE | 2023-11-26 15:01 | P.PN_ITS ---
Subjective 2 Subjective: Patient was seen this morning, denies any chest pain, no palpitations, does report shortness of breath with exertion, no edema, Vitals/I&O/Wt Last Vital Signs Temp 97.6 F 11/26/23 10:45 Pulse 74 11/26/23 11:18 Resp 18 11/26/23 11:18 BP 131/77 11/26/23 10:45 Pulse Ox 92 11/26/23 11:18 O2 Del Method Room Air 11/26/23 11:18 O2 Flow Rate 2 11/23/23 20:15 11/26/23 11/26/23 11/26/23 06:59 14:59 22:59 Intake Total 480 / 480 Output Total 350 / 350 Balance 130 / 130 Weight last 48 hrs Weight 51.284 kg Weight 51.284 kg Physical Exam 2 Const: COMMON NORMALS: no acute distress and patient oriented x3 Resp: COMMON NORMALS: normal respiratory effort, No retractions, No use of accessory muscles and clear to auscultation bilaterally AUSCULTATION: clear to auscultation bilaterally Cardio: COMMON NORMALS: regular rate, regular rhythm, S1 normal heart sound present and S2 normal heart sound present RATE: regular rate RHYTHM: r egular rhythm HEART SOUNDS: S1 normal heart sound present and S2 normal heart sound present GI: COMMON NORMALS: Normal to inspection, nondistended, normoactive bowel sounds present and non-tender Extremity: COMMON NORMALS: no pedal edema Neuro: COMMON NORMALS: patient oriented x3 Psych: COMMON NORMALS: mental status grossly normal Data 11/26/23 06:30 11/26/23 06:30 Micro: Microbiology 11/23/23 14:11 Blood Culture - Preliminary Blood 11/23/23 14:06 Blood Culture - Preliminary Blood A&P Assessment and plan (1) Community acquired pneumonia: (2) Congestive heart failure: (3) COPD exacerbation: (4) Positive cardiac stress test: (5) Systolic CHF, acute: (6) Ischemic cardiomyopathy: Plan NSTEMI -No complaints of chest pain -6-hour troponin 30.35, no significant delta troponin -EKG no acute ST-T wave changes -History of CABG, history of CAD CONCLUSIONS Severe diffuse hypokinesia of the left-ventricular with an ejection fraction of around 17%. Mildly dilated LV cavity. Mild biatrial enlargementThickened mitral valve with moderate mitral annular calcification. Trace mitral valve regurgitation. Thickened aortic valve. Trace of tricuspid valve regurgitation. There is no pericardial effusion. There are no intracardiac masses. No similar previous studies are available for comparison Cardiac stress test IMPRESSIONS 1. Myocardial perfusion imaging revealing moderate area of moderate to severely decreased tracer uptake, involving the inferior, inferolateral, inferoseptal, anterolateral and apical regions with significant ischemia mostly in the distribution of the left circumflex artery artery and the right coronary artery. 2. Segmental wall motion analysis revealed severe diffuse hypokinesia of the left ventricle, more so of the apex. 3. LV ejection fraction, estimated to be 7%. 4. Markedly dilated LV cavity with an end-systolic volume of 334 mL No similar previous studies are available for comparison Plan -Continue aspirin, statin, beta-kacey -Cardiology consulted for consideration of cath, LifeVest -Continue telemetry monitoring Community-acquired pneumonia ? Flu ? COVID, ? Sputum cultures ?blood cultures collected ? Rocephin, azithromycin, ? Solu-Medrol ? Full code, ? Lovenox for DVT prophylaxis, COPD exacerbation, ? DuoNeb, ? Solu-Medrol History of CAD, history of CABG, ? Serial EKGs. Troponins were telemetry monitoring CHF ?BNP is over 28,000, does not look fluid overloaded ? Hold off on diuresis ? Cardiac echo Spoke to patient, spoke to nursing staff, spoke to cardiology Attestations 2 Medical Necessity Statement*: Patient requires hospitalization for pneumonia, COPD, NSTEMI, with concerns for ischemic cardiomyopathy requiring cardiology consultation Diagnoses Community acquired pneumonia J18.9 Congestive heart failure I50.9 COPD exacerbation J44.1 Positive cardiac stress test R94.39 Systolic CHF, acute I50.21 Ischemic cardiomyopathy I25.5
[2023-11-26] MEDS: cefTRIAXone 1,000 MG in sodium chloride 0.9% (plus) 50 ML 100 MG IV (15:17)
--- NOTE | 2023-11-26 15:51 | P.CONIM_ITS ---
Providers/Reason For Consult 2 Consulting Physician/Specialty*: Mehran Singh MD/ Cardiology Reason for Consult*: LV dysfunction/abnormal stress test Requesting Physician: Dr Garcia Attending Physician: Mynor Garcia MD History of Present Illness History of Present Illness Ruslan Zuniga is a 68 year old male with past medical history of CAD, congestive heart failure, COPD who was admitted with COPD exacerbation and pneumonia. He was found to have severely reduced LV systolic function. Stress test was obtained that shows significant ischemia in RCA and left circumflex artery territory with prior infarcts. Patient has worsening shortness of breath recently. No current chest discomfort however has on and off episodes. Troponins were elevated at admission but did not trend up significantly. Review of Systems 2 Const: Reports: fever(s), chills, fatigue and malaise Card: Denies: chest pain Resp: Reports: dyspnea and non-productive cough GI: Denies: abdominal pain : Denies: flank pain or difficulty urinating Skin/Breast: Denies: rash Neuro: Denies: headache(s) or weakness in extremities Medications/Allergies Home Medications Medication Instructions Recorded Confirmed Last Taken Type No Known Home Medications 11/23/23 11/23/23 Unknown History Allergies Allergy/AdvReac Type Severity Reaction Status Date / Time No Known Allergies Allergy Verified 11/23/23 11:53 Current Medications Generic Name Dose Route Start Last Admin Trade Name Freq PRN Reason Stop Dose Admin Acetaminophen 650 mg 11/23/23 17:54 11/25/23 21:20 Acetaminophen 325 Mg Tablet PO 650 mg Q6H PRN Administration Mild/Mod Pain Or Temp >/= 101 Albuterol/Ipratropium 3 ml 11/23/23 20:00 11/26/23 15:02 Ipratropium-Albuterol 3 Ml Neb INHALATION 3 ml QID.RESPIRATORY LORRIE Administration Alprazolam 0.25 mg 11/25/23 09:12 11/26/23 08:33 Alprazolam 0.5 Mg Tablet PO 0.25 mg BID PRN Administration ANXIETY Aspirin 81 mg 11/23/23 17:54 11/26/23 08:33 Aspirin 81 Mg Ec Tablet PO 81 mg DAILY LORRIE Administration Atorvastatin Calcium 40 mg 11/23/23 21:00 11/25/23 21:22 Atorvastatin 40 Mg Tablet PO 40 mg BEDTIME LORRIE Administration Enoxaparin Sodium 40 mg 11/23/23 17:54 11/25/23 17:48 Enoxaparin 40 Mg/0.4 Ml Syringe SUBCUT 40 mg Q24H LORRIE Administration Ceftriaxone Sodium 1,000 mg/ 50 mls @ 100 mls/hr 11/24/23 14:00 11/26/23 15:17 Sodium Chloride IV 100 mls/hr Q24H LORRIE Administration Protocol Azithromycin 500 mg/ Sodium 250 mls @ 250 mls/hr 11/24/23 14:00 11/26/23 14:10 Chloride IV 250 mls/hr Q24H LORRIE Administration Protocol Methylprednisolone Sodium Succinate 40 mg 11/24/23 08:00 11/26/23 08:34 Methylprednisolone Sod Succ 40 Mg/Ml Inj IVP 40 mg Q8H LORRIE Administration Metoprolol Succinate 12.5 mg 11/24/23 09:00 11/26/23 08:34 Metoprolol Succinate Er (24 Hr) 25 Mg Tablet PO 12.5 mg DAILY LORRIE Administration Morphine Sulfate 1 mg 11/23/23 17:54 11/24/23 14:20 Morphine 4 Mg/Ml Sdv 1 Ml IVP 1 mg Q4H PRN Administration SEVERE PAIN Pantoprazole Sodium 40 mg 11/23/23 17:54 11/25/23 17:48 Pantoprazole 40 Mg Sdv IVP 40 mg Q24H LORRIE Administration PFSH Acute 2 PFSH: Medical History HLD (hyperlipidemia) HTN (hypertension) with goal to be determined COPD (chronic obstructive pulmonary disease) History of CAD (coronary artery disease) Surgical History History of coronary artery bypass graft Family History Mother CAD (coronary artery disease) Sister CAD (coronary artery disease) Other Bleeding disorder Social History Smoking and tobacco/nicotine status: current every day tobacco/nicotine user Alcohol intake: never Substance/Drug Use: never Vitals/I&O/Wt Last Vital Signs Temp 97.6 F 11/26/23 10:45 Pulse 96 11/26/23 15:02 Resp 18 11/26/23 15:02 BP 131/77 11/26/23 10:45 Pulse Ox 93 11/26/23 15:02 O2 Del Method Room Air 11/26/23 15:02 O2 Flow Rate 2 11/23/23 20:15 11/26/23 11/26/23 11/26/23 06:59 14:59 22:59 Intake Total 480 / 480 Output Total 350 / 350 225 / 575 Balance 130 / 130 -225 / -95 Weight last 48 hrs Weight 113 lb 1 oz Weight 113 lb 1 oz Physical Exam 2 Narrative: GENERAL: Patient is alert, awake and oriented x3. [] NECK: No jugular vein distension. [] HEENT: No cyanosis. No icterus. No pallor. [] HEART: Regular S1 and S2. No murmur, rub or gallop. [] LUNGS: Diminished air entry CENTRAL NERVOUS SYSTEM: Grossly nonfocal. [] EXTREMITIES: Lower extremities with 1+ edema bilaterally. Data 11/27/23 06:08 11/27/23 06:08 Micro: Microbiology 11/23/23 14:11 Blood Culture - Preliminary Blood 11/23/23 14:06 Blood Culture - Preliminary Blood A&P Assessment and plan (1) Ischemic cardiomyopathy: (2) Congestive heart failure: (3) Positive cardiac stress test: Plan Patient has abnormal stress test and has a significantly low cardiac function. Also has on and off chest discomfort. After detailed discussion, we decided to proceed with coronary angiogram with possible PCI. Risk and benefit of the procedure been discussed. He understands the risks and benefits and wants to proceed. N.p.o. past midnight We will optimize congestive heart failure therapy. Pneumonia medications per primary team. Thank you for involving us with care of this patient. Will continue to follow. Please call with questions. Consult Attestations 2 Medical Necessity Statement: Care expected to cross 2 midnights. Coding Level of Care Code Acute Code for [facility] F[facility] Diagnoses Ischemic cardiomyopathy I25.5 Congestive heart failure I50.9 Positive cardiac stress test R94.39
[2023-11-26] MEDS: pantoprazole 40 mg SDV IVP (16:59)
[2023-11-26] MEDS: enoxaparin 40 mg/0.4 mL Syringe SUBCUT (16:59)
--- NOTE | 2023-11-26 19:09 | NMCV_ITS ---
NM joseline perf SPECT r/s* [id number] Ruslan Zuniga Age: 68 Gender: M : 1955 Exam Date: 11/26/2023 06:24 Ordering Phys: Mynor Garcia MD Technologist: SUMIT Valdez Exam Location: [facility] Indications: CHEST PAIN STRESS TEST Please see separate stress test report in [facility] for full findings IMAGE PROTOCOL Rest/Stress 1 Lexiscan Day Radiopharmaceutical Dose (mCi) Administration Site Administered by Rest: Tc-99m 11.0 IV SUMIT Cook Sestamibi Stress:Tc-99m 32.2 IV SUMIT Cook Sestamibi Rest: 26-Nov-2023 60 Discovery 630 Stress: 26-Nov-2023 30 Discovery 630 0.4mg Lexiscan. Images obtained in supine and prone position. SPECT RESULTS Technical Quality: Excellent Raw Data Analysis: Normal Image Corrections: No attenuation or motion correction applied Summed Stress Score: 10 Summed Rest Score: 1 Summed Difference Score: 9 PERFUSION FINDINGS Moderate area of moderate to severely decreased tracer uptake involving the mid and apical inferior, mid inferoseptal, mid inferolateral, mid anterolateral and apical lateral segments. Significant reversibility was noted in these regions. FUNCTIONAL RESULTS (calculated via Gated SPECT) Stress Image LV EF (%): 7 Stress EDV (mL):361 TID: 1.05 Stress ESV (mL):334 FUNCTIONAL FINDINGS: Segmental wall motion analysis revealed a severe diffuse hypokinesia of the left ventricle. IMPRESSIONS 1. Myocardial perfusion imaging revealing moderate area of moderate to severely decreased tracer uptake, involving the inferior, inferolateral, inferoseptal, anterolateral and apical regions with significant ischemia mostly in the distribution of the left circumflex artery artery and the right coronary artery. 2. Segmental wall motion analysis revealed severe diffuse hypokinesia of the left ventricle, more so of the apex. 3. LV ejection fraction, estimated to be 7%. 4. Markedly dilated LV cavity with an end-systolic volume of 334 mL No similar previous studies are available for comparison Dr Sandy Forbes MD [facility] (Electronically Signed) Final Date: 26 November 2023 13:08 S
[2023-11-26] MEDS: atorvastatin 40 mg Tablet PO (21:34)
[2023-11-27] VITALS (21 sets, daily range): BP systolic 112–156; BP diastolic 68–107; PULSE 78–112; RESP 13–20; TEMP 36.2–36.6; O2SAT 92–97
[2023-11-27] MEDS: methylPREDNISolone sod succ 40 mg/mL INJ IVP ×2 (00:58→08:46)
[2023-11-27 06:17] LABS: Basophils % 0.1 %; Hematocrit 50.9 % (37-53); Lymphocytes # 0.5 10^3/uL (0.8-4.8); Lymphocytes % 3.2 %; Mean Corpuscular HGB Conc 31.6 g/dL (30-55); Mean Corpuscular Hemoglobin 30.5 pg (27-33); Mean Corpuscular Volume 96.4 fl (82-101); Mean Platelet Volume 9.1 fL (7.4-10.4); Monocytes # 0.6 10^3/uL (0.2-0.9); Monocytes % 4.2 %; Neutrophils # 13.87 10^3/uL (1.8-7.7); Neutrophils % 91.3 %; Nucleated Red Blood Cells % 0 %; Platelet Count 275 10^3/cmm (157-399); Red Blood Count 5.28 10^6/uL (3.85-5.65); Red Cell Distribution Width 14.4 % (12.1-15.1); White Blood Count 15.18 10^3/uL (3.29-11.43)
[2023-11-27 06:35] LABS: Alanine Aminotransferase 20 U/L (0-41); Albumin Level 3.2 g/dL (3.5-5.2); Alkaline Phosphatase 91 U/L (40-130); Anion Gap 8.9 (5-19); Aspartate Amino Transferase 26 U/L (0-40); Blood Urea Nitrogen 21 mg/dL (8-23); Calcium 8.5 mg/dL (8.5-10.5); Carbon Dioxide 31 mmol/L (22-29); Chloride 102 mmol/L (98-107); Globulin 2.9 g/dL (1.3-4.6); Glomerular Filtration Rate 95.6 mL/min (90-130); Glucose 120 mg/dL (65-115); Magnesium 2.1 mg/dL (1.7-2.3); Osmolality Calculated 290 mOsm/kg (285-295); Phosphorus 3.1 mg/dL (2.5-4.5); Potassium 3.9 mmol/L (3.5-5.1); Sodium 138 mmol/L (136-145); Total Bilirubin 0.3 mg/dL (0.15-1.2); Total Protein 6.1 g/dL (6.6-8.7)
--- NOTE | 2023-11-27 06:46 | XACV_ITS ---
Exam Room: [facility] Ht: 170 cm Wt: 51 kg BSA: 1.54 m2 Gender: Male : 1955 Exam Priority: Routine Procedure(s): Procedure Description: Diagnostic procedure Procedure Description: PCI procedure Procedure Description: Left Heart Catheterization Procedure Description: Venous Graft Catheterization Procedure Description: HANNAH Graft Catheterization Procedure Description: Drug Eluting Coronary Stent Procedure Description: PTCA Procedure Description: Miscellaneous Procedure Description: ACT Procedure Description: Coronary Angiography Diagnostic Cath Status: Urgent Diagnostic Findings * INDICATION: LV dysfunction/worsening dyspnea/abnormal stress test. * Left Main is short and patent. * Right Coronary Artery has prior stents with moderate 50% in-stent restenosis in the mid vessel stent. * Proximal Left Anterior Descending: ostial chronic total occlusion, JESSI: 0 flow. * Ramus intermedius artery: Patent. * Bypass grafts: HANNAH to LAD is patent. SVG to OM is occluded. * Proximal Circumflex: significant 80% stenosis, EJSSI: 3 flow. * Coronary angiography shows right dominance. PCI Status: Urgent PCI Indication: Other Interventional Findings * Procedure detail: We engaged the left main artery with XB 3.5 guide catheter. IV heparin was administered to maintain anticoagulation. 0.014 run-through guidewire was used to cross the stenosis and was put in distal circumflex artery. We predilated the stenosis with 2.5 x 12 mm NC balloon. This was followed by placement of 2.75 x 15 mm resolute [place]aks drug-eluting stent. At this time final angiogram was performed that showed excellent stent expansion, no residual stenosis and JESSI-3 flow. Guidewire and guide catheter were removed. 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 * Proximal Circumflex: 80% stenosis treated with a MDT NC EUPHORA RX [id number] BALLOON, and MDT R LUCA 2.75X15 ELOY. 0% residual stenosis, JESSI: 3 flow. Conclusions 1. Severe proximal left circumflex artery stenosis s/p PCI with 1 stent (area of ischemia on stress test was in LCx territory) Patent HANNAH to LAD. Occluded SVG to OM.. 2. Patient has prior CABG. 3. Proximal Circumflex was treated with a Balloon, and Drug Eluting Stent. Recommendations * Dual antiplatelet therapy with aspirin and plavix for atleast 1 year. * High intensity statin therapy. * Outpatient cardiology follow up in 2-4 weeks. Interventional RX Recommendation: PCI w/o planned CABG Diagnostic RX Recommendation: PCI w/o planned CABG Anticoagulation: Heparin Pressures Phase:Rest AO : 139 / 76 ( 100 ) @ 11:08:00 AM 128 / 77 ( 98 ) @ 11:13:00 AM 128 / 68 ( 94 ) @ 11:13:00 AM 118 / 79 ( 97 ) @ 11:15:00 AM 126 / 85 ( 104 ) @ 11:26:00 AM 119 / 85 ( 101 ) @ 11:33:00 AM LV : 127 / 0 / 13 @ 11:13:00 AM 129 / 1 / 12 @ 11:13:00 AM Valves Phase:DefaultPhase AV : 0.0 @ 12:02:21 PM 0.0 @ 12:02:21 PM AV Mean Gradient: 0.0 @ 12:02:21 PM 0.0 @ 12:02:21 PM Clinical Evaluation EBL: 5mL-10mL Procedural Details Current Diagnosis : Chest Pain. Pre-Procedure Time Out. Identified patient by full name and date of as verbalized by the patient/guarantor. Does the consent match the physician's order: Yes. Accurate & Complete Informed Consent: Yes. Inpatient/Outpatient History & Physical on Chart: Yes. If H&P is completed, is and addenduem needed: No; If yes, is the addendum complete: N/A. Visualize and Verify Site with Patient/Guarantor: N/A. Relevant Radiology Images available: Yes. Pre-op teaching completed and patient verbalized understanding. The risks, benefits, and alternatives of sedation and/or procedure were discussed by physician. The patient agrees to continue. Procedure started. [facility] Clinical Fraility Score: 3: Managing Well. Beef Killer Indications: Suspected CAD. Chest Pain Symptom Assessment: Atypical Angina. Correct patient, site and procedure confirmed by cath team. Current diagnosis: Chest Pain. PERRLA. 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 Lungs clear x 5 lobes. IV Site on Arrival: 18 gauge in the right anticubital. IV Fluids: 0.9% NaCl at KVO. 0 mL infused prior to cardiac cath technician. Oxygen started at 2liters/min via nasal canula. bilateral groins was prepped with chloroprep then draped in the usual sterile fashion. Baseline sample Acquired. HR: 96 BPM. Physician notified. Physician arrived. Physician scrubbed in. Immediate Pre-Procedure Time Out. Correct Patient: Yes; Correct Procedure: Yes; Correct Site: Yes; Correct Patient Position: Yes; Correct Supplies: Yes; Dried Flammable Prep: Yes; Blood Products Available: N/A;. Lidocaine 1% infiltrated to the right groin. Arterial access obtained with micropuncture set. Glidewire inserted through the micropuncture dilator. A 6 andorran JL4 catheter in over wire. Catheter removed over the exchange wire. A 6 andorran JR4 catheter in over wire. Multiple views taken of right coronary artery. SVG to OM occluded. Catheter removed over the exchange wire. A 6 andorran JL4 catheter in over wire. EDP Sample taken: LV 127/0,13; HR: 83 BPM; SpO2: 95%. Pullback taken: LV 129/1,12; AO 128/77(98); Mean: 0mmHg, Peak to Peak: 0mmHg, SEP: 11sec/min; HR: 93 BPM; SpO2: 94%. Multiple views taken of left coronary artery. Catheter removed over the exchange wire. A 6 andorran JR4 catheter in over wire. HANNAH to LAD visualized. Catheter removed over the exchange wire. 6 andorran XB 3.5 guide catheter was inserted over the wire. Runthrough guidewire was advanced through the guide catheter to lesion in the prox Circ. Inflation number : 1 A MDT NC EUPHORA RX [id number] BALLOON was prepped and advanced across the Prox CX , then inflated to 12 SHANITA for 0:09 seconds. Inflation number: 2 The MDT NC EUPHORA RX [id number] BALLOON was reinflated across the Prox CX, to 12 SHANITA for 0:10 seconds. Balloon out. Results checked. Stent inserted to lesion in the prox Circ. Intact stent out OTW. Guidezilla inserted OTW. Inflation Number : 3 A MDT R LUCA 2.75X15 ELOY -Lot Number# _[id number] EXP: 06/07/2024 was prepped and advanced across the Prox CX. The stent was deployed at 12 SHANITA for 0:19 seconds. Stent balloon out over wire. Guidezilla out OTW. Results checked. Wire out. Results checked. ACT drawn. Results out of range high seconds. Therapeutic limits - pre-heparin administration 90-150 seconds and monitoring heparin during a vascular procedure >250 seconds. Guide catheter out. A Right femoral angiogram was performed to determine safe placement of closure device. A Suture was successful obtaining hemostatsis at the Right Femoral artery insertion site. Vital chart was stopped. Sheath(s) sutured into position with 2-0 silk and sterile 4x4's and Op-site applied over the site. No oozing or signs and symptoms of hematoma noted. Arterial sheath flushed and connected to tranducer and pressure bag with heparinized saline. Post Procedure: Pulses reassessed and unchanged. PERRLA. 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 No VTE prophylaxis required. Total IV fluids: 250 mL. Complications: None. Estimated blood loss: 5mL-10mL. Responsiveness - Normal response to verbal stimuli; alert and oriented, PERRLA. Airway - Unaffected, no intervention required; spontaneous ventilation. Circulation: W/N/L, pulses unchanged. Nausea/Vomiting: No. ACT drawn. Results 338 seconds. Therapeutic limits - pre-heparin administration 90-150 seconds and monitoring heparin during a vascular procedure >250 seconds. Medication's Wasted: Other = Lasix 60 mg. Procedure completed. [facility] Site: Right Femoral artery Sheath Size: 6 Fr Hemostasis Method: Suture Hemostasis Success: Successful Procedure Medications Start: 10:53 AM Stop: 10:53 AM Medication: Benadryl Amount: 50 mg Route: I.V. Start: 10:55 AM Stop: 10:55 AM Medication: Versed Amount: 1 mg Route: I.V. Start: 10:55 AM Stop: 10:55 AM Medication: Fentanyl Amount: 50 mcg Route: I.V. Start: 11:13 AM Stop: 11:13 AM Medication: Versed Amount: 1 mg Route: I.V. Start: 11:13 AM Stop: 11:13 AM Medication: Fentanyl Amount: 50 mcg Route: I.V. Start: 11:22 AM Stop: 11:22 AM Medication: Heparin Amount: 3000 units Route: I.V. Start: 11:25 AM Stop: 11:25 AM Medication: Heparin Amount: 2000 units Route: I.V. Start: 11:46 AM Stop: 11:46 AM Medication: Plavix Amount: 600 mg Route: P.O. Start: 11:54 AM Stop: 11:54 AM Medication: Lasix (furosemide) Amount: 40 mg Route: I.V. I, the attending physician, have reviewed and verified all procedure medications. Yes, all medications given per verbal order History/Risk Factors Hypertension: Yes Dyslipidemia: No Peripheral Arterial Disease (PAD): No Myocardial Infarction (TX): No Obesity: No Renal Disease: No Tobacco Use: Current/Recent(w/in 1 year) Prior Interventions PCI: No CABG: Yes Valve Surgery: No Report Signatures Finalized by Mehran Singh MD on 12/11/2023 09:28 AM
[2023-11-27 07:01] LABS: NT Pro B Type Natriuretic Pept 20651 pg/mL (0-125)
[2023-11-27] MEDS: ALPRAZolam 0.5 mg Tablet 0.25 MG PO ×2 (07:11→18:40)
[2023-11-27] MEDS: metoprolol succinate ER (24 HR) 25 mg Tablet 12.5 MG PO (08:46)
[2023-11-27] MEDS: aspirin 81 mg EC Tablet PO ×2 (08:47→17:14)
[2023-11-27] MEDS: ipratropium-albuterol 3 mL Neb INHALATION (09:02)
--- NOTE | 2023-11-27 10:39 | PC.NURSE ---
Pt down to shop laborer with shop laborer staff.
--- NOTE | 2023-11-27 10:49 | W.PM.OPSUD ---
Surgery/Procedure H&P Update DATE OF PROCEDURE: November 27, 2023 DATE H&P PERFORMED: 11/26/23 H&P UPDATE INFORMATION: I have reviewed H&P completed within last 30 days, I have examined patient prior to procedure and No changes to prior documentation PREOP DIAGNOSIS: LV dysfunction/worsening dyspnea/abnormal stress test PRIMARY INDICATION FOR PROCEDURE: LV dysfunction/worsening dyspnea/abnormal stress test PLANNED PROCEDURE: Left heart cath with possible percutaneous coronary intervention PATIENT REASSESSED PRIOR TO SEDATION, WITH NO CHANGE NOTED: Yes PHYSICAL EXAM: alert, oriented x 3 and regular rate & rhythm OTHER PERTINENT EXAM FINDINGS: Diminished air entry bilaterally AIRWAY EVAL/ANESTHESIA PLAN: normal airway, ASA III, Local Anesthesia, Risks, benefits & alternatives of sedation and/or procedure discussed and Patient agrees to continue as planned ADDITIONAL INFORMATION: Moderate sedation
--- NOTE | 2023-11-27 12:05 | PC.NURSE ---
Recovery Note Pt arrived to CPRU 4 post cath to recover until appropriate floor bed available. Placed on bedside night monitor, denies pain. Right femoral sheath sutured in with pressure bag. No signs of bleeding or hematoma. Pedal Pulses present. Call light in reach.
--- NOTE | 2023-11-27 12:37 | P.PN_ITS ---
Subjective 2 Subjective: Patient is feeling well. He had successful revascularization of proximal left circumflex artery. Coronary angiogram revealed a patent HANNAH to LAD. His [place] RCA is patent. SVG to OM was occluded. Vitals/I&O/Wt Last Vital Signs Temp 97.6 F 11/27/23 07:58 Pulse 111 H 11/27/23 12:15 Resp 15 11/27/23 12:15 BP 149/105 11/27/23 12:15 Pulse Ox 94 11/27/23 12:15 O2 Del Method Room Air 11/27/23 12:15 O2 Flow Rate 2 11/23/23 20:15 11/26/23 11/27/23 11/27/23 22:59 06:59 14:59 Intake Total 1260 / 1740 0 / 0 Output Total 525 / 875 600 / 1475 300 / 300 Balance 735 / 865 -600 / 265 -300 / -300 Weight last 48 hrs Weight 125 lb 1 oz Weight 113 lb 1 oz Physical Exam 2 Narrative: GENERAL: Patient is alert, awake and oriented x3. [] NECK: No jugular vein distension. [] HEENT: No cyanosis. No icterus. No pallor. [] HEART: Regular S1 and S2. No murmur, rub or gallop. [] LUNGS: Diminished air entry CENTRAL NERVOUS SYSTEM: Grossly nonfocal. [] EXTREMITIES: Lower extremities with 1+ edema bilaterally. Data 11/28/23 03:02 11/28/23 03:02 A&P Assessment and plan (1) Ischemic cardiomyopathy: (2) Congestive heart failure: (3) Positive cardiac stress test: Plan Patient had PCI of proximal left circumflex artery performed. Aspirin and Plavix for at least 1 year. High intensity statin therapy. Optimal heart failure therapy. Continue metoprolol. Will start Entresto before discharge. Thank you for involving us with care of this patient. Will continue to follow. Please call with questions. Attestations 2 Medical Necessity Statement*: Care expected to cross 2 midnights. Coding Level of Care Code Acute Code for g Fwd Diagnoses Ischemic cardiomyopathy I25.5 Congestive heart failure I50.9 Positive cardiac stress test R94.39
--- NOTE | 2023-11-27 13:43 | P.PN_ITS ---
Subjective 2 Subjective: Patient was seen this morning, he denies any chest pain, no palpitations, no shortness of breath Vitals/I&O/Wt Last Vital Signs Temp 97.6 F 11/27/23 07:58 Pulse 101 H 11/27/23 13:15 Resp 20 H 11/27/23 13:15 BP 140/96 11/27/23 13:15 Pulse Ox 95 11/27/23 13:15 O2 Del Method Room Air 11/27/23 13:15 O2 Flow Rate 2 11/23/23 20:15 11/26/23 11/27/23 11/27/23 22:59 06:59 14:59 Intake Total 1260 / 1740 0 / 0 Output Total 525 / 875 600 / 1475 950 / 950 Balance 735 / 865 -600 / 265 -950 / -950 Weight last 48 hrs Weight 56.727 kg Weight 51.284 kg Physical Exam 2 Const: COMMON NORMALS: no acute distress and patient oriented x3 Resp: COMMON NORMALS: normal respiratory effort, No retractions, No use of accessory muscles and clear to auscultation bilaterally AUSCULTATION: clear to auscultation bilaterally Cardio: COMMON NORMALS: regular rate, regular rhythm, S1 normal heart sound present and S2 normal heart sound present RATE: regular rate RHYTHM: r egular rhythm HEART SOUNDS: S1 normal heart sound present and S2 normal heart sound present GI: COMMON NORMALS: Normal to inspection, nondistended, normoactive bowel sounds present and non-tender Extremity: COMMON NORMALS: no pedal edema Neuro: COMMON NORMALS: patient oriented x3 Psych: COMMON NORMALS: mental status grossly normal Data 11/27/23 06:08 11/27/23 06:08 A&P Assessment and plan (1) Community acquired pneumonia: (2) Congestive heart failure: (3) COPD exacerbation: (4) Positive cardiac stress test: (5) Systolic CHF, acute: (6) Ischemic cardiomyopathy: Plan NSTEMI -No complaints of chest pain -6-hour troponin 30.35, no significant delta troponin -EKG no acute ST-T wave changes -History of CABG, history of CAD CONCLUSIONS Severe diffuse hypokinesia of the left-ventricular with an ejection fraction of around 17%. Mildly dilated LV cavity. Mild biatrial enlargementThickened mitral valve with moderate mitral annular calcification. Trace mitral valve regurgitation. Thickened aortic valve. Trace of tricuspid valve regurgitation. There is no pericardial effusion. There are no intracardiac masses. No similar previous studies are available for comparison Cardiac stress test IMPRESSIONS 1. Myocardial perfusion imaging revealing moderate area of moderate to severely decreased tracer uptake, involving the inferior, inferolateral, inferoseptal, anterolateral and apical regions with significant ischemia mostly in the distribution of the left circumflex artery artery and the right coronary artery. 2. Segmental wall motion analysis revealed severe diffuse hypokinesia of the left ventricle, more so of the apex. 3. LV ejection fraction, estimated to be 7%. 4. Markedly dilated LV cavity with an end-systolic volume of 334 mL No similar previous studies are available for comparison -cardiology consulted -cath will be done today Plan -Continue aspirin, statin, beta-kacey -Cardiology consulted for consideration of cath, LifeVest -Continue telemetry monitoring Community-acquired pneumonia ? Sputum cultures ?blood cultures collected ? Rocephin, azithromycin, ? Solu-Medrol ? Full code, ? Lovenox for DVT prophylaxis, COPD exacerbation, ? DuoNeb, ? Solu-Medrol History of CAD, history of CABG, ? Serial EKGs. Troponins were telemetry monitoring CHF ?BNP is over 28,000, does not look fluid overloaded ? Hold off on diuresis ? Cardiac echo Spoke to patient, spoke to nursing staff, spoke to cardiology Attestations 2 Medical Necessity Statement*: Patient was seen this morning, plan on coronary angiography, continue antibiotics for pneumonia Diagnoses Community acquired pneumonia J18.9 Congestive heart failure I50.9 COPD exacerbation J44.1 Positive cardiac stress test R94.39 Systolic CHF, acute I50.21 Ischemic cardiomyopathy I25.5
--- NOTE | 2023-11-27 14:28 | PC.NURSE ---
Azithromycin Nurse spiked azithromycin , went to scan medication for 1400 administration time and seen orders were changed to azithromycin 250mg IVPB. Azithromycin not administered and 500mg bag wasted.
[2023-11-27 14:42] LABS: Partial Thromboplastin Time 80.2 SECONDS (23.9-36.7)
--- NOTE | 2023-11-27 14:52 | PC.NURSE ---
Pt transferred via stretcher to CSU room 103. Report given to DINA Lundberg. Bedside groin sheath site observed with DINA Lundberg. Site remains asymptomatic, sheath remains in with pressure bag.
[2023-11-27] MEDS: azithromycin 250 mg Tablet PO (15:03)
[2023-11-27] MEDS: cefTRIAXone 1,000 MG in sodium chloride 0.9% (plus) 50 ML 100 MG IV (16:23)
--- NOTE | 2023-11-27 16:41 | PC.NURSE ---
Patient comes to [facility] from [facility], he has a right femoral sheath with a pressure bag. All of his belongs came with him he was on the 2nd floor prior to [facility].
[2023-11-27] MEDS: pantoprazole 40 mg SDV IVP (17:14)
[2023-11-27] MEDS: clopidogrel 75 mg Tablet PO (17:14)
[2023-11-27] MEDS: enoxaparin 40 mg/0.4 mL Syringe SUBCUT (17:14)
[2023-11-27 18:17] LABS: Partial Thromboplastin Time 31.5 SECONDS (23.9-36.7)
[2023-11-27] MEDS: morphine 4 mg/mL SDV 1 mL 1 MG IVP (18:40)
--- NOTE | 2023-11-27 22:27 | PC.RESP ---
RT unavailable, in ER. no resp distress noted.
[2023-11-27] MEDS: atorvastatin 40 mg Tablet PO (22:48)
[2023-11-28] VITALS (68 sets, daily range): BP systolic 87–153; BP diastolic 64–100; PULSE 57–154; RESP 8–28; TEMP 36.2–36.7; O2SAT 88–100; BMI 18.5
--- NOTE | 2023-11-28 02:38 | PC.NURSE ---
Sheath pull started by juan RN and Madonna ARROYO. Sheath was pulled, Lyla ARROYO took over and held pressure for 20 minutes. Site covered with 4x4 and bio-occlusive dressing. Dressing dry and intact. No hematoma noted.
[2023-11-28 04:01] LABS: Basophils % 0.2 %; Eosinophils # 0.1 10^3/uL (0.0-0.8); Eosinophils % 0.6 %; Hematocrit 54.3 % (37-53); Lymphocytes # 1.2 10^3/uL (0.8-4.8); Lymphocytes % 9.9 %; Mean Corpuscular Hemoglobin 30.6 pg (27-33); Mean Corpuscular Volume 95.4 fl (82-101); Mean Platelet Volume 9.5 fL (7.4-10.4); Monocytes # 1.1 10^3/uL (0.2-0.9); Monocytes % 9.1 %; Neutrophils # 9.18 10^3/uL (1.8-7.7); Neutrophils % 79.3 %; Nucleated Red Blood Cells % 0 %; Platelet Count 245 10^3/cmm (157-399); Red Blood Count 5.69 10^6/uL (3.85-5.65); Red Cell Distribution Width 14.4 % (12.1-15.1); White Blood Count 11.58 10^3/uL (3.29-11.43)
[2023-11-28 04:29] LABS: Alanine Aminotransferase 28 U/L (0-41); Albumin Level 3.2 g/dL (3.5-5.2); Alkaline Phosphatase 96 U/L (40-130); Blood Urea Nitrogen 26 mg/dL (8-23); Calcium 8.5 mg/dL (8.5-10.5); Carbon Dioxide 38 mmol/L (22-29); Chloride 97 mmol/L (98-107); Globulin 3.2 g/dL (1.3-4.6); Glomerular Filtration Rate 111.5 mL/min (90-130); Glucose 69 mg/dL (65-115); Magnesium 2.2 mg/dL (1.7-2.3); Osmolality Calculated 297 mOsm/kg (285-295); Phosphorus 3.1 mg/dL (2.5-4.5); Sodium 142 mmol/L (136-145); Total Bilirubin 0.4 mg/dL (0.15-1.2); Total Protein 6.4 g/dL (6.6-8.7)
[2023-11-28 04:31] LABS: Anion Gap 10.1 (5-19); Aspartate Amino Transferase 37 U/L (0-40); NT Pro B Type Natriuretic Pept 17035 pg/mL (0-125); Potassium 3.1 mmol/L (3.5-5.1)
--- NOTE | 2023-11-28 07:57 | PM.PN ---
Subjective Subjective: Patient is doing well. no chest pain. Has chest pain. Vitals/I&O/Wt Last Vital Signs Temp 97.2 F L 11/28/23 04:00 Pulse 88 11/28/23 07:35 Resp 18 11/28/23 07:35 BP 120/87 11/28/23 07:25 Pulse Ox 93 11/28/23 07:35 O2 Del Method Room Air 11/28/23 07:35 O2 Flow Rate 2 11/23/23 20:15 11/27/23 11/28/23 11/28/23 22:59 06:59 14:59 Intake Total 600 / 600 400 / 1000 Output Total 1600 / 3550 550 / 4100 Balance -1000 / -2950 -150 / -3100 Weight last 48 hrs Weight 118 lb 1 oz Weight 125 lb 1 oz Physical Exam Narrative: GENERAL: Patient is alert, awake and oriented x3. [] NECK: No jugular vein distension. [] HEENT: No cyanosis. No icterus. No pallor. [] HEART: Regular S1 and S2. No murmur, rub or gallop. [] LUNGS: Diminished air entry CENTRAL NERVOUS SYSTEM: Grossly nonfocal. [] EXTREMITIES: Lower extremities with 1+ edema bilaterally. Data 11/28/23 03:02 11/28/23 14:32 A&P Assessment and plan (1) Ischemic cardiomyopathy: (2) Congestive heart failure: (3) Positive cardiac stress test: Plan Patient had PCI of proximal left circumflex artery performed. Aspirin and Plavix for at least 1 year. Has remained stable since yesterday High intensity statin therapy. His blood pressure is low today. Continue metoprolol. Once blood pressure allows, will need Entresto initiation. Thank you for involving us with care of this patient. Will continue to follow. Please call with questions. Attestations Medical Necessity Statement*: Care expected to cross 2midnights. Coding Level of Care Code Acute Code for [facility] Diagnoses Ischemic cardiomyopathy I25.5 Congestive heart failure I50.9 Positive cardiac stress test R94.39
[2023-11-28] MEDS: clopidogrel 75 mg Tablet PO (09:29)
[2023-11-28] MEDS: FUROsemide 10 mg/mL SDV 4mL 40 MG IVP (09:29)
[2023-11-28] MEDS: predniSONE 20 mg Tablet 40 MG PO (09:29)
[2023-11-28] MEDS: metoprolol succinate ER (24 HR) 25 mg Tablet 12.5 MG PO (09:29)
[2023-11-28] MEDS: lidocaine 1% 5 ML in potassium chloride premix 100 ML 26.25 ML IV (09:30)
[2023-11-28] MEDS: aspirin 81 mg EC Tablet PO (09:30)
--- NOTE | 2023-11-28 10:02 | PC.NURSE ---
Physician orders: Morphine 2mg IVP once for pain associated with IV potassium.
[2023-11-28] MEDS: morphine 4 mg/mL SDV 1 mL 2 MG IVP (10:09)
--- NOTE | 2023-11-28 10:34 | PC.NURSE ---
Patient unable to tolerate IV k+. Physician aware and received new orders for 40MEQ PO oral liquid.
[2023-11-28] MEDS: potassium chloride oral liq 20 mEq/15 mL UDC 40 MEQ PO (11:11)
--- NOTE | 2023-11-28 14:55 | P.PN_ITS ---
Subjective 2 Subjective: Patient was seen this morning, denies any fevers, no chills, no cough, he is receiving potassium with lidocaine he tells me that it is burning him, denies any chest pain, palpitations Vitals/I&O/Wt Last Vital Signs Temp 97.2 F L 11/28/23 04:00 Pulse 92 11/28/23 11:07 Resp 13 11/28/23 11:07 BP 87/64 11/28/23 11:07 Pulse Ox 93 11/28/23 11:07 O2 Del Method Room Air 11/28/23 11:07 O2 Flow Rate 2 11/23/23 20:15 11/27/23 11/28/23 11/28/23 22:59 06:59 14:59 Intake Total 600 / 600 400 / 1000 268.875 / 268.875 Output Total 1600 / 3550 550 / 4100 720 / 720 Balance -1000 / -2950 -150 / -3100 -451.125 / -451.125 Weight last 48 hrs Weight 53.552 kg Weight 56.727 kg Physical Exam 2 Const: COMMON NORMALS: no acute distress and patient oriented x3 Resp: COMMON NORMALS: normal respiratory effort, No retractions, No use of accessory muscles and clear to auscultation bilaterally AUSCULTATION: clear to auscultation bilaterally Cardio: COMMON NORMALS: regular rate, regular rhythm, S1 normal heart sound present and S2 normal heart sound present RATE: regular rate RHYTHM: r egular rhythm HEART SOUNDS: S1 normal heart sound present and S2 normal heart sound present GI: COMMON NORMALS: Normal to inspection, nondistended, normoactive bowel sounds present and non-tender Extremity: COMMON NORMALS: no pedal edema Neuro: COMMON NORMALS: patient oriented x3 Psych: COMMON NORMALS: mental status grossly normal Data 11/28/23 03:02 11/28/23 03:02 A&P Assessment and plan (1) Community acquired pneumonia: (2) Congestive heart failure: (3) COPD exacerbation: (4) Positive cardiac stress test: (5) Systolic CHF, acute: (6) Ischemic cardiomyopathy: Plan NSTEMI -No complaints of chest pain -6-hour troponin 30.35, no significant delta troponin -EKG no acute ST-T wave changes -History of CABG, history of CAD CONCLUSIONS Severe diffuse hypokinesia of the left-ventricular with an ejection fraction of around 17%. Mildly dilated LV cavity. Mild biatrial enlargementThickened mitral valve with moderate mitral annular calcification. Trace mitral valve regurgitation. Thickened aortic valve. Trace of tricuspid valve regurgitation. There is no pericardial effusion. There are no intracardiac masses. No similar previous studies are available for comparison Cardiac stress test IMPRESSIONS 1. Myocardial perfusion imaging revealing moderate area of moderate to severely decreased tracer uptake, involving the inferior, inferolateral, inferoseptal, anterolateral and apical regions with significant ischemia mostly in the distribution of the left circumflex artery artery and the right coronary artery. 2. Segmental wall motion analysis revealed severe diffuse hypokinesia of the left ventricle, more so of the apex. 3. LV ejection fraction, estimated to be 7%. 4. Markedly dilated LV cavity with an end-systolic volume of 334 mL No similar previous studies are available for comparison -cardiology consulted -cath status post stent Plan -Continue aspirin, Plavix statin, beta-kacey -Patient is agreeable to LifeVest -Continue telemetry monitoring Community-acquired pneumonia ? Sputum cultures ?blood cultures collected ? Rocephin, azithromycin po ? On p.o. prednisone ? Full code, ? Lovenox for DVT prophylaxis, COPD exacerbation, ? DuoNeb, ? On p.o. prednisone History of CAD, history of CABG, CHF ?BNP is elevated ? Currently diuresing well ? Cardiac echo Spoke to patient, spoke to nursing staff, spoke to cardiology, plan for today continue IV Lasix , ordered LifeVest Attestations 2 Medical Necessity Statement*: Patient requires hospitalization for NSTEMI, pneumonia, COPD, requiring stent placement, LifeVest ordered Diagnoses Community acquired pneumonia J18.9 Congestive heart failure I50.9 COPD exacerbation J44.1 Positive cardiac stress test R94.39 Systolic CHF, acute I50.21 Ischemic cardiomyopathy I25.5
[2023-11-28 14:59] LABS: Blood Urea Nitrogen 27 mg/dL (8-23); Carbon Dioxide 40 mmol/L (22-29); Chloride 92 mmol/L (98-107); Glomerular Filtration Rate 95.6 mL/min (90-130); Glucose 114 mg/dL (65-115); Osmolality Calculated 294 mOsm/kg (285-295); Sodium 139 mmol/L (136-145)
[2023-11-28 15:02] LABS: Anion Gap 10.8 (5-19); Potassium 3.8 mmol/L (3.5-5.1)
[2023-11-28] MEDS: azithromycin 250 mg Tablet PO (15:52)
[2023-11-28] MEDS: cefTRIAXone 1,000 MG in sodium chloride 0.9% (plus) 50 ML 100 MG IV (15:53)
[2023-11-28] MEDS: pantoprazole 40 mg SDV IVP (18:12)
[2023-11-28] MEDS: enoxaparin 40 mg/0.4 mL Syringe SUBCUT (18:13)
[2023-11-28] MEDS: nicotine 21 mg Patch 1 PATCH TRANSDERMA (18:13)
[2023-11-28] MEDS: morphine 4 mg/mL SDV 1 mL 1 MG IVP (19:11)
[2023-11-28] MEDS: ALPRAZolam 0.5 mg Tablet 0.25 MG PO (19:12)
[2023-11-28] MEDS: atorvastatin 40 mg Tablet PO (19:12)
[2023-11-29] VITALS (34 sets, daily range): BP systolic 80–121; BP diastolic 56–82; PULSE 81–107; RESP 12–28; TEMP 36.4–36.7; O2SAT 85–99; BMI 17.7
[2023-11-29 03:53] LABS: Basophils # 0.1 10^3/uL (0.0-0.1); Basophils % 0.3 %; Eosinophils % 0.2 %; Hematocrit 51.1 % (37-53); Lymphocytes % 5.9 %; Mean Corpuscular HGB Conc 32.3 g/dL (30-55); Mean Corpuscular Hemoglobin 30.6 pg (27-33); Mean Corpuscular Volume 94.6 fl (82-101); Mean Platelet Volume 9.2 fL (7.4-10.4); Monocytes # 1.1 10^3/uL (0.2-0.9); Monocytes % 6.9 %; Neutrophils # 13.83 10^3/uL (1.8-7.7); Neutrophils % 85.7 %; Nucleated Red Blood Cells % 0 %; Platelet Count 239 10^3/cmm (157-399); Red Cell Distribution Width 14.2 % (12.1-15.1); White Blood Count 16.15 10^3/uL (3.29-11.43)
[2023-11-29 04:18] LABS: Alanine Aminotransferase 27 U/L (0-41); Albumin Level 3.2 g/dL (3.5-5.2); Alkaline Phosphatase 94 U/L (40-130); Anion Gap 13.9 (5-19); Aspartate Amino Transferase 26 U/L (0-40); Blood Urea Nitrogen 30 mg/dL (8-23); Calcium 8.4 mg/dL (8.5-10.5); Carbon Dioxide 31 mmol/L (22-29); Chloride 98 mmol/L (98-107); Globulin 2.8 g/dL (1.3-4.6); Glomerular Filtration Rate 133.2 mL/min (90-130); Glucose 110 mg/dL (65-115); Magnesium 2.1 mg/dL (1.7-2.3); Osmolality Calculated 295 mOsm/kg (285-295); Phosphorus 3.2 mg/dL (2.5-4.5); Potassium 3.9 mmol/L (3.5-5.1); Sodium 139 mmol/L (136-145); Total Bilirubin 0.3 mg/dL (0.15-1.2)
[2023-11-29 04:20] LABS: NT Pro B Type Natriuretic Pept 9275 pg/mL (0-125)
--- NOTE | 2023-11-29 08:42 | P.PN_ITS ---
Subjective 2 Subjective: Patient feels tired. WBC count has gone up. No chest pain Vitals/I&O/Wt Last Vital Signs Temp 97.7 F 11/29/23 06:15 Pulse 88 11/29/23 07:54 Resp 12 11/29/23 07:54 BP 105/74 11/29/23 07:54 Pulse Ox 91 11/29/23 07:51 O2 Del Method Room Air 11/28/23 11:07 O2 Flow Rate 2 11/23/23 20:15 11/28/23 11/29/23 11/29/23 22:59 06:59 14:59 Intake Total 290 / 558.875 360 / 360 Output Total 280 / 1000 280 / 280 Balance 290 / -161.125 -280 / -441.125 80 / 80 Weight last 48 hrs Weight 113 lb 2 oz Weight 118 lb 1 oz Physical Exam 2 Narrative: GENERAL: Patient is alert, awake and oriented x3. [] NECK: No jugular vein distension. [] HEENT: No cyanosis. No icterus. No pallor. [] HEART: Regular S1 and S2. No murmur, rub or gallop. [] LUNGS: Diminished air entry CENTRAL NERVOUS SYSTEM: Grossly nonfocal. [] EXTREMITIES: Lower extremities with 1+ edema bilaterally. Data 11/29/23 03:40 11/29/23 03:40 A&P Assessment and plan (1) Ischemic cardiomyopathy: (2) Congestive heart failure: (3) Positive cardiac stress test: Plan Patient had PCI of proximal left circumflex artery performed. Aspirin and Plavix for at least 1 year. High intensity statin therapy. Continue metoprolol. Blood pressure is soft. Once improves, can start low-dose Entresto. Thank you for involving us with care of this patient. Will continue to follow. Please call with questions. Attestations 2 Medical Necessity Statement*: Care expected to cross 2 midnights. Coding Level of Care Code Acute Code for [facility] Diagnoses Ischemic cardiomyopathy I25.5 Congestive heart failure I50.9 Positive cardiac stress test R94.39
[2023-11-29] MEDS: metoprolol succinate ER (24 HR) 25 mg Tablet 12.5 MG PO (09:27)
[2023-11-29] MEDS: ALPRAZolam 0.5 mg Tablet 0.25 MG PO ×2 (09:27→20:51)
[2023-11-29] MEDS: predniSONE 20 mg Tablet 40 MG PO (09:27)
[2023-11-29] MEDS: aspirin 81 mg EC Tablet PO (09:28)
[2023-11-29] MEDS: nicotine 21 mg Patch 1 PATCH TRANSDERMA (09:28)
[2023-11-29] MEDS: clopidogrel 75 mg Tablet PO (09:28)
[2023-11-29] MEDS: FUROsemide 40 mg Tablet PO (09:28)
--- NOTE | 2023-11-29 11:11 | PC.SOCIAL ---
IMM Update pg 2 of IMM updated and reviewed w/ patient. Copy provided and copy dated, initialed and placed in chart.
--- NOTE | 2023-11-29 12:00 | P.PN_ITS ---
Subjective 2 Subjective: Patient was seen this morning he continues to complain of weakness, fatigue, shortness of breath, no lightheadedness, dizziness, nausea, vomiting, he is agreeable to LifeVest placement, patient tells me that he had radiation therapy to his neck, in 2011, for neck cancer, he tells me that the chemotherapy and the radiation seems to be settling in his bones, as he feels weak and unstable on the bilateral lower extremities Vitals/I&O/Wt Last Vital Signs Temp 97.6 F 11/29/23 08:49 Pulse 90 11/29/23 08:52 Resp 20 H 11/29/23 08:52 BP 105/74 11/29/23 08:49 Pulse Ox 95 11/29/23 08:52 O2 Del Method Nasal Cannula 11/29/23 08:52 O2 Flow Rate 2 11/29/23 08:52 11/28/23 11/29/23 11/29/23 22:59 06:59 14:59 Intake Total 290 / 558.875 360 / 360 Output Total 280 / 1000 280 / 280 Balance 290 / -161.125 -280 / -441.125 80 / 80 Weight last 48 hrs Weight 51.313 kg Weight 53.552 kg Physical Exam 2 Const: COMMON NORMALS: no acute distress and patient oriented x3 Resp: COMMON NORMALS: normal respiratory effort, No retractions and No use of accessory muscles AUSCULTATION: crackles and wheezes Cardio: COMMON NORMALS: regular rate, regular rhythm, S1 normal heart sound present and S2 normal heart sound present RATE: regular rate RHYTHM: r egular rhythm HEART SOUNDS: S1 normal heart sound present and S2 normal heart sound present GI: COMMON NORMALS: Normal to inspection, nondistended, normoactive bowel sounds present and non-tender Extremity: COMMON NORMALS: no pedal edema Neuro: COMMON NORMALS: patient oriented x3 Psych: COMMON NORMALS: mental status grossly normal Data 11/30/23 02:45 11/30/23 02:45 Micro: Microbiology 11/23/23 14:11 Blood Culture - Final Blood 11/23/23 14:06 Blood Culture - Final Blood A&P Assessment and plan (1) Community acquired pneumonia: (2) Congestive heart failure: (3) COPD exacerbation: (4) Positive cardiac stress test: (5) Systolic CHF, acute: (6) Ischemic cardiomyopathy: Plan NSTEMI -No complaints of chest pain -6-hour troponin 30.35, no significant delta troponin -EKG no acute ST-T wave changes -History of CABG, history of CAD CONCLUSIONS Severe diffuse hypokinesia of the left-ventricular with an ejection fraction of around 17%. Mildly dilated LV cavity. Mild biatrial enlargementThickened mitral valve with moderate mitral annular calcification. Trace mitral valve regurgitation. Thickened aortic valve. Trace of tricuspid valve regurgitation. There is no pericardial effusion. There are no intracardiac masses. No similar previous studies are available for comparison Cardiac stress test IMPRESSIONS 1. Myocardial perfusion imaging revealing moderate area of moderate to severely decreased tracer uptake, involving the inferior, inferolateral, inferoseptal, anterolateral and apical regions with significant ischemia mostly in the distribution of the left circumflex artery artery and the right coronary artery. 2. Segmental wall motion analysis revealed severe diffuse hypokinesia of the left ventricle, more so of the apex. 3. LV ejection fraction, estimated to be 7%. 4. 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 Sputum cultures ?blood cultures collected ? Rocephin, azithromycin po, last day of IV antibiotics ? On p.o. prednisone ? Full code, ? Lovenox for DVT prophylaxis, COPD exacerbation, ? DuoNeb, ? On p.o. prednisone History of CAD, history of CABG, CHF ?BNP is elevated ? Currently diuresing well ? Cardiac echo Plan for today continue diuresis, PT OT, Attestations 2 Medical Necessity Statement*: patient requires hospitalization for CHF, pneumonia, COPD, awaiting LifeVest Diagnoses Community acquired pneumonia J18.9 Congestive heart failure I50.9 COPD exacerbation J44.1 Positive cardiac stress test R94.39 Systolic CHF, acute I50.21 Ischemic cardiomyopathy I25.5
--- NOTE | 2023-11-29 15:47 | PM.MISC ---
Miscellaneous Note Purpose of Documentation: Brief coronary angiogram report: Note: Procedure date :11/27/2023. Indication: LV dysfunction/abnormal stress test/Dyspnea Coronary findings: Left main artery: Patent LAD: Occluded Left circumflex artery:has severe proximal 80% stenosis. RCA: Patent HANNAH to LAD is patent SVG to OM is occluded Patient underwent successful revascularization of proximal Left circumflex artery with 1 stent plan: Dual antiplatelet therapy with 1 year High intensity statin therapy Order lifevest as has severe LV dysfunction. Full procedure report to follow.
[2023-11-29] MEDS: cefTRIAXone 1,000 MG in sodium chloride 0.9% (plus) 50 ML 100 MG IV (16:47)
[2023-11-29] MEDS: enoxaparin 40 mg/0.4 mL Syringe SUBCUT (16:48)
[2023-11-29] MEDS: azithromycin 250 mg Tablet PO (16:48)
[2023-11-29] MEDS: pantoprazole 40 mg SDV IVP (16:48)
[2023-11-29] MEDS: atorvastatin 40 mg Tablet PO (20:51)
[2023-11-29] MEDS: acetaminophen 325 mg Tablet 650 MG PO (20:51)
[2023-11-30] VITALS (7 sets, daily range): BP systolic 96–120; BP diastolic 64–85; PULSE 85–97; RESP 16–22; TEMP 36.6–36.7; O2SAT 95–97
[2023-11-30 03:25] LABS: Basophils # 0.1 10^3/uL (0.0-0.1); Basophils % 0.6 %; Eosinophils # 0.1 10^3/uL (0.0-0.8); Eosinophils % 0.5 %; Hematocrit 50.1 % (37-53); Lymphocytes # 1.1 10^3/uL (0.8-4.8); Lymphocytes % 8.6 %; Mean Corpuscular HGB Conc 31.9 g/dL (30-55); Mean Corpuscular Hemoglobin 30.4 pg (27-33); Mean Corpuscular Volume 95.2 fl (82-101); Mean Platelet Volume 9.3 fL (7.4-10.4); Monocytes # 0.9 10^3/uL (0.2-0.9); Monocytes % 6.9 %; Neutrophils # 9.94 10^3/uL (1.8-7.7); Neutrophils % 79.4 %; Nucleated Red Blood Cells % 0 %; Platelet Count 249 10^3/cmm (157-399); Red Blood Count 5.26 10^6/uL (3.85-5.65); Red Cell Distribution Width 13.8 % (12.1-15.1)
[2023-11-30 03:46] LABS: Alanine Aminotransferase 36 U/L (0-41); Albumin Level 3.3 g/dL (3.5-5.2); Alkaline Phosphatase 93 U/L (40-130); Anion Gap 12.9 (5-19); Aspartate Amino Transferase 31 U/L (0-40); Blood Urea Nitrogen 29 mg/dL (8-23); Calcium 8.2 mg/dL (8.5-10.5); Carbon Dioxide 33 mmol/L (22-29); Chloride 98 mmol/L (98-107); Globulin 2.6 g/dL (1.3-4.6); Glomerular Filtration Rate 111.5 mL/min (90-130); Glucose 115 mg/dL (65-115); Magnesium 2.1 mg/dL (1.7-2.3); Osmolality Calculated 297 mOsm/kg (285-295); Phosphorus 2.9 mg/dL (2.5-4.5); Potassium 3.9 mmol/L (3.5-5.1); Sodium 140 mmol/L (136-145); Total Bilirubin 0.3 mg/dL (0.15-1.2); Total Protein 5.9 g/dL (6.6-8.7)
[2023-11-30 03:52] LABS: NT Pro B Type Natriuretic Pept 5488 pg/mL (0-125)
[2023-11-30] MEDS: nicotine 21 mg Patch 1 PATCH TRANSDERMA (08:21)
[2023-11-30] MEDS: metoprolol succinate ER (24 HR) 25 mg Tablet 12.5 MG PO (08:21)
[2023-11-30] MEDS: predniSONE 20 mg Tablet 40 MG PO (08:22)
[2023-11-30] MEDS: aspirin 81 mg EC Tablet PO (08:22)
[2023-11-30] MEDS: FUROsemide 40 mg Tablet PO (08:22)
[2023-11-30] MEDS: clopidogrel 75 mg Tablet PO (08:22)
--- NOTE | 2023-11-30 10:57 | P.DS_ITS ---
Discharge Providers Date of Admission: 11/23/23 17:54 Date of Discharge: November 30, 2023 Attending Provider at Admission: Mynor Garcia MD Attending Provider at Discharge: Mynor Garcia MD Diagnoses at Discharge Discharge Diagnosis (1) Community acquired pneumonia: Status: Acute (2) Congestive heart failure: Status: Acute (3) COPD exacerbation: Status: Acute (4) Positive cardiac stress test: Status: Acute (5) Systolic CHF, acute: Status: Acute (6) Ischemic cardiomyopathy: Status: Acute Reason for Visit Reason for Visit: SOB Hospital Course Hospital Course Ruslan Zuniga is a 68 year old male with a past medical history of CAD status post multiple stents, history of CABG, history of COPD, history of smoking, hypertension hyperlipidemia, who presents to [facility] due to shortness of breath, nonproductive cough, fatigue, malaise for the last few days. Patient tells me that for the last few days, has had fatigue, malaise, nonproductive cough, shortness of breath with rest and exertion no lower extreme edema no chest pain he tells me about a month ago he had pneumonia he got treated for but felt like he never got better, no sick contacts, recent travel, no calf pain, calf swelling, currently on 2 L, not requiring oxygen at home, he is an active smoker, This is a 68-year-old male, who presents to [facility] for community- acquired pneumonia, and COPD exacerbation required steroids, antibiotics, overall clinically improved, on room air, discharged on Adderall Advair albuterol, prednisone burst, completed antibiotic therapy as inpatient He has a history of CAD, history of CABG, had NSTEMI during his hospitalization, 6-hour troponin 30.35, no significant delta troponin, echocardiogram showed EF of 17%, he is a smoker, cardiology consulted, status post PCI of left circumflex, he does have a history of radiation therapy to the neck for his ENT cancer, possible radiation induced cardiovascular disease. Nonetheless he was managed with PCI to the left circumflex, aspirin, statin, Plavix, beta-kacey clinically monitored overall remained chest pain-free. Also was approved for LifeVest and was fitted before his discharge. Patient also received diuresis during his hospitalization receiving Lasix therapy with good urine output. On discharge she will be discharged on aspirin, statin, Plavix, beta-kacey, Lasix, potassium with LifeVest therapy with a close follow-up with primary care and cardiology as outpatient. On discharge, I had extensive discussion with him about compliance with LifeVest therapy, morbidity and mortality associated with noncompliance. On discharge had an extensive discussion with patient about q uitting smoking, his risk of COPD worsening CAD, morbidity and mortality associated, discharged with nicotine patch Physical Exam Const: COMMON NORMALS: no acute distress and patient oriented x3 Resp: COMMON NORMALS: normal respiratory effort, No retractions, No use of accessory muscles and clear to auscultation bilaterally AUSCULTATION: clear to auscultation bilaterally Cardio: COMMON NORMALS: regular rate, regular rhythm, S1 normal heart sound present and S2 normal heart sound present RATE: regular rate RHYTHM: regular rhythm HEART SOUNDS: S1 normal heart sound present and S2 normal heart sound present GI: COMMON NORMALS: Normal to inspection, nondistended, normoactive bowel sounds present and non-tender Extremity: COMMON NORMALS: no pedal edema Neuro: COMMON NORMALS: patient oriented x3 Psych: COMMON NORMALS: mental status grossly normal Discharge Data Studies Completed and Pending Completed Studies During Hospitalization Category Date Time Status CTA chest [CT angio chest PE protcl [id number]] Stat Cat Scan 11/23/23 11:59 Completed Sestamibi Stress Test Request Routine Exams 11/25/23 19:09 Completed XR chest 1V portable [id number] Stat Exams 11/23/23 11:17 Completed Blood Cultures ([facility]) Routine Lab 11/23/23 14:06 Completed Blood Cultures ([facility]) Routine Lab 11/23/23 14:11 Completed NM joseline perf SPECT r/s* [id number] Routine Nuc Med 11/26/23 19:09 Completed CV. echo complete* [id number] Routine Ultrasound 11/25/23 06:00 Completed Pending at discharge Category Date Time Status THERMODYNAMICIST request for service Routine Exams 11/27/23 06:46 Taken Complete Blood Count w/Auto AM LABS Lab 12/01/23 04:00 Ordered Complete Blood Count w/Auto AM LABS Lab 12/02/23 04:00 Ordered Comprehensive Metabolic Panel AM LABS Lab 12/01/23 04:00 Ordered Comprehensive Metabolic Panel AM LABS Lab 12/02/23 04:00 Ordered Magnesium AM LABS Lab 12/01/23 04:00 Ordered Magnesium AM LABS Lab 12/02/23 04:00 Ordered NT Pro B Type Natriuretic Pept QAM Lab 12/01/23 06:00 Ordered NT Pro B Type Natriuretic Pept QAM Lab 12/02/23 06:00 Ordered Phosphorus AM LABS Lab 12/01/23 04:00 Ordered Phosphorus AM LABS Lab 12/02/23 04:00 Ordered Sputum Culture and Gram Stain Stat Lab 11/23/23 14:37 Uncollected Radiology Impressions Chest X-Ray 11/23/23 11:17 IMPRESSION: 1. No acute findings. 2. Metallic sternotomy wires are present 3. Moderate cardiomegaly Chest CTA 11/23/23 11:59 IMPRESSION: 1. Negative pulmonary embolism. 2. The aorta and left ventricle are not filled with contrast. 3. Metallic sternotomy wires are present. 4. Bilateral pleural effusions 5 Bilateral perihilar and lower lobe pneumonia Laboratory Results WBC 12.50 10^3/uL (3.29-11.43) H 11/30/23 02:45 RBC 5.26 10^6/uL (3.85-5.65) 11/30/23 02:45 Hgb 16.00 g/dL (11.27-16.99) 11/30/23 02:45 Hct 50.1 % (37-53) 11/30/23 02:45 MCV 95.2 fl (82-101) 11/30/23 02:45 MCH 30.4 pg (27-33) 11/30/23 02:45 MCHC 31.9 g/dL (30-55) 11/30/23 02:45 RDW 13.8 % (12.1-15.1) 11/30/23 02:45 Plt Count 249 10^3/cmm (157-399) 11/30/23 02:45 MPV 9.3 fL (7.4-10.4) 11/30/23 02:45 Neut % (Auto) 79.4 % 11/30/23 02:45 Lymph % (Auto) 8.6 % 11/30/23 02:45 Page % (Auto) 6.9 % 11/30/23 02:45 Eos % (Auto) 0.5 % 11/30/23 02:45 Baso % (Auto) 0.6 % 11/30/23 02:45 Neut # (Auto) 9.94 10^3/uL (1.8-7.7) H 11/30/23 02:45 Lymph # (Auto) 1.1 10^3/uL (0.8-4.8) 11/30/23 02:45 Page # (Auto) 0.9 10^3/uL (0.2-0.9) 11/30/23 02:45 Eos # (Auto) 0.1 10^3/uL (0.0-0.8) 11/30/23 02:45 Baso # (Auto) 0.1 10^3/uL (0.0-0.1) 11/30/23 02:45 Nucleated RBC % (auto) 0 % 11/30/23 02:45 Nucleated RBCs # 0.0 /100WBC 11/30/23 02:45 PT 14.90 SECONDS (12.1-14.9) 11/23/23 10:57 INR 1.13 (0.8-1.2) 11/23/23 10:57 APTT 31.5 SECONDS (23.9-36.7) D 11/27/23 17:55 D-Dimer 0.70 ug/mLFEU (0-0.59) H 11/23/23 10:57 Sodium 140 mmol/L (136-145) 11/30/23 02:45 Potassium 3.9 mmol/L (3.5-5.1) 11/30/23 02:45 Chloride 98 mmol/L (98-107) 11/30/23 02:45 Carbon Dioxide 33 mmol/L (22-29) H 11/30/23 02:45 Anion Gap 12.9 (5-19) 11/30/23 02:45 BUN 29 mg/dL (8-23) H 11/30/23 02:45 Creatinine 0.7 mg/dL (0.7-1.2) 11/30/23 02:45 GFR Calculation 111.5 mL/min (90-130) 11/30/23 02:45 Glucose 115 mg/dL (65-115) 11/30/23 02:45 Estimat Average Glucose 120 11/23/23 10:57 Hemoglobin A1c 5.8 % (4.0-6.0) 11/23/23 10:57 Calculated Osmolality 297 mOsm/kg (285-295) H 11/30/23 02:45 Lactic Acid 1.6 mmol/L (0.5-2.2) 11/23/23 10:57 Calcium 8.2 mg/dL (8.5-10.5) L 11/30/23 02:45 Phosphorus 2.9 mg/dL (2.5-4.5) 11/30/23 02:45 Magnesium 2.1 mg/dL (1.7-2.3) 11/30/23 02:45 Total Bilirubin 0.3 mg/dL (0.15-1.2) 11/30/23 02:45 AST 31 U/L (0-40) 11/30/23 02:45 ALT 36 U/L (0-41) 11/30/23 02:45 Alkaline Phosphatase 93 U/L (40-130) 11/30/23 02:45 Troponin T Baseline 42 ng/L (0-15) H 11/23/23 10:57 Troponin T 120 Minute 36.84 ng/L (0-15) H 11/23/23 12:53 Delta Troponin T -5.16 ABS# (0-10) L 11/23/23 12:53 Troponin T Hi Sens 6Hr 38.35 ng/L (0-15) H 11/23/23 16:29 Troponin T Hi Sens 6Hr Delta -3.65 ng/L (0-12) L 11/23/23 16:29 C-Reactive Protein 14.7 mg/L (0.0-4.9) H 11/23/23 10:57 NT-Pro-B Natriuret Pep 5488 pg/mL (0-125) H 11/30/23 02:45 Total Protein 5.9 g/dL (6.6-8.7) L 11/30/23 02:45 Albumin 3.3 g/dL (3.5-5.2) L 11/30/23 02:45 Globulin 2.6 g/dL (1.3-4.6) 11/30/23 02:45 Triglycerides 131 mg/dL (0-150) 11/23/23 10:57 Cholesterol 177 mg/dL (0-200) 11/23/23 10:57 LDL Cholesterol, Calc 117 mg/dL (50-129) 11/23/23 10:57 HDL Cholesterol 34 mg/dL (60-100) L 11/23/23 10:57 LDL/HDL Ratio 3.44 RATIO (0.00-3.22) H 11/23/23 10:57 Cholesterol/HDL Ratio 5.21 mg/dL (1.0-5.00) H 11/23/23 10:57 Procalcitonin 0.07 ng/mL (0-0.5) 11/23/23 10:57 TSH 5.79 uIU/mL (0.27-4.20) H 11/23/23 10:57 Urine Color Colorless (Yellow) 11/23/23 19:42 Urine Appearance Clear (CLEAR) 11/23/23 19:42 Urine pH 5 (5-7) 11/23/23 19:42 Ur Specific [place] 1.010 (1.005-1.030) 11/23/23 19:42 Urine Protein Neg (Negative) 11/23/23 19:42 Urine Glucose (UA) Norm (Normal) 11/23/23 19:42 Urine Ketones Negative (Negative) 11/23/23 19:42 Urine Blood Neg (Negative) 11/23/23 19:42 Urine Nitrate Negative (Negative) 11/23/23 19:42 Urine Bilirubin Neg (Negative) 11/23/23 19:42 Urine Urobilinogen Norm mg/dL (Negative) 11/23/23 19:42 Ur Leukocyte Esterase Negative (Negative) 11/23/23 19:42 Influenza Type A Ag negative (Negative) 11/23/23 14:23 Influenza Type B Ag negative (Negative) 11/23/23 14:23 SARS-CoV-2 Ag (Rapid) negative (Negative) 11/23/23 14:23 Vitals Last Vital Signs Temp 97.9 F 11/30/23 07:24 Pulse 95 11/30/23 08:00 Resp 16 11/30/23 08:00 BP 120/85 11/30/23 07:24 Pulse Ox 97 11/30/23 08:00 O2 Del Method Room Air 11/30/23 08:00 O2 Flow Rate 2 11/29/23 20:03 Discharge Plan Discharge Patient Disposition: Home Condition: Stable Prescriptions: New atorvastatin 40 mg Tablet 40 mg PO BEDTIME 30 Days Qty: 30 0RF metoprolol succinate 25 mg Tablet Extended Release 24 Hr 12.5 mg PO DAILY 30 Days Qty: 30 0RF aspirin 81 mg Tablet,Delayed Release (Dr/Ec) 81 mg PO DAILY 30 Days Qty: 30 0RF nicotine 21 mg/24 hr Patch 24 Hour 1 patch transdermal DAILY 28 Days Qty: 28 0RF albuterol sulfate 90 mcg/actuation HFA aerosol inhaler 1 inh inhalation Q6H PRN (Reason: shortness of breath or wheezing) Qty: 8.5 0RF fluticasone propion-salmeterol [Advair Diskus] 100-50 mcg/dose blister with device 1 inh inhalation BID Qty: 60 0RF prednisone 20 mg Tablet 40 mg PO DAILY 5 Days Qty: 10 0RF clopidogrel 75 mg Tablet 75 mg PO DAILY 30 Days Qty: 30 0RF furosemide 40 mg Tablet 40 mg PO DAILY@0800 30 Days Qty: 30 0RF potassium chloride [Klor-Con 10] 10 mEq tablet extended release 10 meq PO DAILY 30 Days Qty: 30 0RF No Action No Known Home Medications Discharge Orders: Discharge Order (Routine); Ordered 11/30/23 Ordered By: Mynor Garcia Other Ambulatory Orders: DME: [facility] (Order) Location: None Selected Ordered By: Mynor Garcia Referrals: Mehran Singh M.D [Physician] - Corrina Heaton FNP [Nurse Practitioner] - 12/05/23 2:00 pm Ben Slade MD [Physician] - 12/04/23 1:15 pm Discharge Diet: Cardiac Discharge Activity: Resume usual activity Patient Instructions: Metoprolol (By mouth) (Lopressor, Toprol XL), Furosemide (By mouth) (Lasix), Albuterol (By breathing) (ProAir, AccuNeb, Proventil, Proventil..., Prednisone (By mouth) (predniSONE Intensol, Prednicot, Deltasone, Garry), Potassium Chloride (By mouth) (K-Dur, K-Angie, K-Tab, Zia Mur), Aspirin (By mouth) (Nicolas Extra Strength, Nicolas Aspirin Children's,..., Nicotine (Absorbed through the skin) (Nicoderm CQ, Nicoderm CQ..., Fluticasone (By breathing) (Arnuity Ellipta, Flovent Diskus,..., Atorvastatin (By mouth) (Lipitor, Atorvaliq), Clopidogrel (By mouth) (Plavix), Heart Failure (DC), Coronary Angioplasty (DC), Wearable Cardioverter Defibrillator (DC), CHF Stopl ight, Opioid Safety, Post Angiogram Home Care Instructions Activity Restrictions/Additional Instructions: - Please take aspirin and Plavix together, do not stop taking these medications as they are keeping her cardiac stent open ? If you develop bloody or black stools please go to the emergency room ?please stop smoking, ? Please see primary care provider next week, ? See cardiology next week, ? Please wear LifeVest at all times Discharge Attestations Time Spent in Discharge Care*: greater than 30 min Time Spent in Smoking Cessation: more than 10 minutes Quality Metrics Clinical Quality Measures [ Acute Myocardial Infaction { Clinical Trial Participant: No; Contraindication to aspirin: None; Aspirin prescribed; Contraindication to statin: None; Statin prescribed; Contraindication to PCI: None; PCI performed;}] Coding Level of Care Code 59360 Total time (in minutes) for Discharge: 45 Diagnoses Community acquired pneumonia J18.9 Congestive heart failure I50.9 COPD exacerbation J44.1 Positive cardiac stress test R94.39 Systolic CHF, acute I50.21 Ischemic cardiomyopathy I25.5
--- NOTE | 2023-11-30 14:04 | PC.NURSE ---
miladist rep here earlier and provided [facility] lifevest to pt.pt's friend now here to pick pt up .she has several questions re:lifevest.rep referred her to tech support at [facility].phone number provided.discharged via w/c to exit at this time.uber to take pt home.
== END 2023-11-30 14:08 | disposition home or self-care (01) | DRG 981 ==
LOC: ER 14:24 → ER IP 18:18 → MEDSURG 21:58 → CSU 11-27 14:36
PROVIDERS: Internal Medicine; Admitting Provider Family Medicine; Emergency Provider Emergency Medicine; Visit Provider Family Medicine
PROC: 027034Z Dilation of Coronary Artery, One Artery with Drug-eluting Intraluminal Device, Percutaneous Approach (ICD-10-PCS; principal; 2023-11-27 12:05)
PROC: 027034Z Dilation of Coronary Artery, One Artery with Drug-eluting Intraluminal Device, Percutaneous Approach (ICD-10-PCS; 2023-11-27 12:05)
DX: J18.9 Pneumonia, unspecified organism (principal); I21.4 Non-ST elevation (NSTEMI) myocardial infarction; I50.21 Acute systolic (congestive) heart failure; J44.0 Chronic obstructive pulmonary disease with (acute) lower respiratory infection; J44.1 Chronic obstructive pulmonary disease with (acute) exacerbation; I25.810 Atherosclerosis of coronary artery bypass graft(s) without angina pectoris; I25.10 Atherosclerotic heart disease of native coronary artery without angina pectoris; I11.0 Hypertensive heart disease with heart failure; E78.5 Hyperlipidemia, unspecified; I25.5 Ischemic cardiomyopathy; Z72.0 Tobacco use; Z95.1 Presence of aortocoronary bypass graft; Z95.5 Presence of coronary angioplasty implant and graft; Z87.01 Personal history of pneumonia (recurrent); I25.2 Old myocardial infarction; Z79.82 Long term (current) use of aspirin; Z92.21 Personal history of antineoplastic chemotherapy; Z92.3 Personal history of irradiation; Z11.52 Encounter for screening for COVID-19; Z85.89 Personal history of malignant neoplasm of other organs and systems
CPT/HCPCS: 36415; 71045; 71275; 78452; 80048; 80053; 80061; 81003; 83036; 83605; 83735; 83880; 84100; 84145; 84443; 84484; 85025; 85347; 85378; 85610; 85730; 86140; 87040; 87426; 87804; 93005; 93017; 93306; 93459; 94640; 94664; 96365; 96367; 96372; 96375; 96376; 97110; 97116; 97162; 99152; 99153; 99285; A9500; C1725; C1769; C1874; C1887; C1894; C9113; C9600; J0456; J0696; J1200; J1644; J1650; J1940; J2250; J2270; J2785; J2920; J2930; J3010; J3480; J3490; J7030; J7040; J7050; J7512; Q0144; Q9967

== ENCOUNTER 2023-12-01 22:42 | Emergency (ER) | payer MEDICARE, SELFPAY ==
[2023-12-01 22:43] VITALS: BP 135/87; PULSE 107; RESP 18; TEMP 36.6; O2SAT 94; BMI 17.2
--- NOTE | 2023-12-01 22:44 | ECG_ITS ---
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 Measurements Intervals [place] Rate: 107 P: -84 PA: 170 QRS: 266 QRSD: 172 T: 70 QT: 433 QTc: 578 Interpretive Statements ECTOPIC ATRIAL TACHYCARDIA LEFT ATRIAL ENLARGEMENT [-0.15mV P-WAVE IN V1/V2] INTRAVENTRICULAR CONDUCTION DELAY [130+ ms QRS DURATION] Compared to ECG 11/23/2023 17:24:56 Sinus rhythm no longer present First degree AV block no longer present Electronically Signed On 12-02-2023 7:54:06 LIBRARY CUSTOMER SERVICE CLERK by Mehran Singh M.D. [email or web address]
--- NOTE | 2023-12-01 22:44 | XRR_ITS ---
PROCEDURE INFORMATION: Exam: XR Chest Exam date and time: 12/01/2023 10:46 PM Age: 68 years old Clinical indication: Angina pectoris; Prior surgery; Surgery date: 6+ months; Patient HX: Chest pain; SOB; Copd; Cad; HX cabg TECHNIQUE: Imaging protocol: Radiologic exam of the chest. Views: 1 view. COMPARISON: CT angio chest PE protcl [id number] 11/23/2023 12:33 PM FINDINGS: Lungs: Right hilar atelectasis versus infiltrate. Emphysematous changes. Pleural spaces: Unremarkable. No pleural effusion. No pneumothorax. Heart/Mediastinum: Cardiomegaly. Bones/joints: Sternotomy wires. XR/XR chest 1V portable [id number] IMPRESSION: 1. Right hilar atelectasis versus infiltrate. 2. Emphysematous changes. 3. Sternotomy wires. 4. Cardiomegaly.
--- NOTE | 2023-12-01 22:48 | W.ED.SOB ---
Documented by User: LLOYD Farnsworth 12/02/23 09:03 HPI - SOB/Dyspnea General: Chief Complaint: Chest Pain Stated Complaint: CP Time Seen by Provider: 12/01/23 22:43 Source: patient Mode of arrival: EMS Limitations: no limitations History of Present Illness: HPI Narrative: Patient is a 68 year old male with a past medical history of CAD status post multiple stents, history of CABG, history of COPD, history of smoking, hypertension hyperlipidemia, who presents to ED today with compliants of shortness of breath and stating his life vest alarm keeps going off . Patient was just discharged from the hospital yesterday. He was admitted for community acquired pneumonia, CHF, and COPD exacerbation. He had an echocardiogram and positive stress test while in hospital with results below. Following abnormal stress test he had cardiac cath performed with PCI of proximal left circumflex artery performed as it was 80% occulded. He states his shortness of breath currently is not really any different then when he was in the hospital. He is annoyed with his life vest alarm. He has no chest pain. CONCLUSIONS Severe diffuse hypokinesia of the left-ventricular with an ejection fraction of around 17%. Mildly dilated LV cavity. Mild biatrial enlargementThickened mitral valve with moderate mitral annular calcification. Trace mitral valve regurgitation. Thickened aortic valve. Trace of tricuspid valve regurgitation. There is no pericardial effusion. There are no intracardiac masses. No similar previous studies are available for comparison IMPRESSIONS 1. Myocardial perfusion imaging revealing moderate area of moderate to severely decreased tracer uptake, involving the inferior, inferolateral, inferoseptal, anterolateral and apical regions with significant ischemia mostly in the distribution of the left circumflex artery artery and the right coronary artery. 2. Segmental wall motion analysis revealed severe diffuse hypokinesia of the left ventricle, more so of the apex. 3. LV ejection fraction, estimated to be 7%. 4. Markedly dilated LV cavity with an end-systolic volume of 334 mL No similar previous studies are available for comparison MD elicited complaint: shortness of breath (life vest alarm going off) Onset (ago): day(s) Timing: constant Severity: moderate Associated symptoms: Deny abdominal pain, chest congestion, chest pain, dizziness, extremity pain, fever(s), hemoptysis, lightheadedness, nausea, palpitations, syncope or vomiting Review of Systems Const: Denies: fever(s), chills, body aches, fatigue or malaise Card: Reports: dyspnea on exertion (chronic); Denies: chest pain, palpitations, irregular heart rhythm, edema, swelling of feet/ankles, lightheadedness, syncope, pre-syncope, leg pain with exertion or acrocyanosis Resp: Reports: dyspnea (chronic); Denies: productive cough, non-productive cough, wheezing, pain on inspiration, change in phlegm color, hemoptysis or chest congestion GI: Denies: abdominal pain, nausea, vomiting or diarrhea Musc: Denies: neck pain, back pain, extremity pain or joint pain Skin/Breast: Denies: rash Neuro: Denies: headache(s) or dizziness PFSH ED PFSH: Medical History HLD (hyperlipidemia) HTN (hypertension) with goal to be determined COPD (chronic obstructive pulmonary disease) History of CAD (coronary artery disease) Surgical History History of coronary artery bypass graft Family History Mother CAD (coronary artery disease) Sister CAD (coronary artery disease) Other Bleeding disorder Social History Smoking and tobacco/nicotine status: current every day tobacco/nicotine user Alcohol intake: never Substance/Drug Use: never Physical Exam Const: COMMON NORMALS: no acute distress, patient oriented x3, no limitations, alert and well nourished GENERAL APPEARANCE: cooperative Neck/C-Spine: COMMON NORMALS: no JVD Resp: COMMON NORMALS: normal respiratory effort and clear to auscultation bilaterally AUSCULTATION: clear to auscultation bilaterally Cardio: COMMON NORMALS: no JVD, regular rate and regular rhythm RATE: regular rate RHYTHM: regular rhythm GI: COMMON NORMALS: Normal to inspection, nondistended, normoactive bowel sounds present, Soft to palpation and non-tender PALPATION: Yes Soft to palpation Extremity: COMMON NORMALS: no clubbing, cyanosis or edema, no calf tenderness and no pedal edema GENERAL: Yes normal exam except as noted Neuro: COMMON NORMALS: patient oriented x3, moves all extremities, no focal motor deficits and no sensory deficits noted SENSORIUM/ORIENTATION: Yes alert Skin: COMMON NORMALS: no rashes or lesions noted GENERAL SKIN EXAM: no rashes or lesions noted Course ED course: Patient having no active chest pain currently. LifeVest was interrogated which detected multiple episodes of v tach but no treatment was administered. Vitals have been stable here. Labs fairly unremarkable. Elevated trop most likely due to his recent cath. Will obtain 2 hr. Care being transferred to Dr. Deleon. ES Vital Signs: Vital signs: Vital Signs Temperature 97.9 F 12/01/23 22:43 Pulse Rate 102 H 12/02/23 03:09 Respiratory Rate 17 12/02/23 03:09 Blood Pressure 123/84 12/02/23 03:09 Pulse Oximetry 94 12/01/23 22:43 Oxygen Delivery Me thod Room Air 12/01/23 22:43 MDM - SOB/Dyspnea Lab Data 12/01/23 22:26 12/01/23 22:26 Labs/Radiology: Radiology Impressions Chest X-Ray 12/01/23 22:44 IMPRESSION: 1. Right hilar atelectasis versus infiltrate. 2. Emphysematous changes. 3. Sternotomy wires. 4. Cardiomegaly. Laboratory Results WBC 10.76 10^3/uL (3.29-11.43) 12/01/23 22: RBC 5.64 10^6/uL (3.85-5.65) 12/01/23 22:26 Hgb 17.30 g/dL (11.27-16.99) H 12/01/23 22:26 Hct 54.1 % (37-53) H 12/01/23 22: MCV 95.9 fl (82-101) 12/01/23 22: MCH 30.7 pg (27-33) 12/01/23 22: MCHC 32.0 g/dL (30-55) 12/01/23 22: RDW 13.8 % (12.1-15.1) 12/01/23 22: Plt Count 315 10^3/cmm (157-399) 12/01/23 22:26 MPV 9.2 fL (7.4-10.4) 12/01/23 22: Neut % (Auto) 70.1 % 12/01/23 22: Lymph % (Auto) 12.5 % 12/01/23 22:26 Walker % (Auto) 10.6 % 12/01/23 22: Eos % (Auto) 1.2 % 12/01/23 22: Baso % (Auto) 0.8 % 12/01/23 22: Neut # (Auto) 7.53 10^3/uL (1.8-7.7) 12/01/23 22: Lymph # (Auto) 1.4 10^3/uL (0.8-4.8) 12/01/23 22: Walker # (Auto) 1.1 10^3/uL (0.2-0.9) H 12/01/23 22: Eos # (Auto) 0.1 10^3/uL (0.0-0.8) 12/01/23: Baso # (Auto) 0.1 10^3/uL (0.0-0.1) 12/01/23 22: Nucleated RBC % (auto) 0 % 12/01/23 22: Nucleated RBCs # 0.0 /100WBC 12/01/23 22:26 Sodium 141 mmol/L (136-145) 12/01/23 22: Potassium 3.5 mmol/L (3.5-5.1) 12/01/23 22: Chloride 95 mmol/L (98-107) L 12/01/23 22:26 Carbon Dioxide 35 mmol/L (22-29) H 12/01/23 22:26 Anion Gap 14.5 (5-19) 12/01/23 22:26 BUN 28 mg/dL (8-23) H 12/01/23 22:26 Creatinine 0.8 mg/dL (0.7-1.2) 12/01/23 22:26 GFR Calculation 95.6 mL/min (90-130) 12/01/23 22:26 Glucose 147 mg/dL (65-115) H 12/01/23 22:26 Calculated Osmolality 300 mOsm/kg (285-295) H 12/01/23 22:26 Calcium 9.2 mg/dL (8.5-10.5) 12/01/23 22:26 Phosphorus 3.4 mg/dL (2.5-4.5) 12/02/23 00:30 Magnesium 2.2 mg/dL (1.7-2.3) 12/02/23 00:30 Total Bilirubin 0.6 mg/dL (0.15-1.2) 12/01/23 22:26 AST 55 U/L (0-40) H 12/01/23 22:26 ALT 57 U/L (0-41) H 12/01/23 22:26 Alkaline Phosphatase 108 U/L (40-130) 12/01/23 22:26 Troponin T Baseline 120 ng/L (0-15) H* 12/01/23 22:26 Troponin T 120 Minute 102.9 ng/L (0-15) H 12/02/23 00:30 Delta Troponin T -17.1 ABS# (0-10) L 12/02/23 00:30 NT-Pro-B Natriuret Pep 5239 pg/mL (0-125) H 12/01/23 22:26 Total Protein 7.4 g/dL (6.6-8.7) 12/01/23 22:26 Albumin 4.0 g/dL (3.5-5.2) 12/01/23 22:26 Globulin 3.4 g/dL (1.3-4.6) 12/01/23 22:26 Discharge Plan Discharge Patient Disposition: Home Clinical Impression: Ischemic cardiomyopathy, Non-sustained ventricular tachycardia Condition: Stable Prescriptions: Continued furosemide 40 mg Tablet 40 mg PO DAILY@0800 30 Days Qty: 30 0RF atorvastatin 40 mg Tablet 40 mg PO BEDTIME 30 Days Qty: 30 0RF prednisone 20 mg Tablet 40 mg PO DAILY 5 Days Qty: 10 0RF Klor-Con 10 10 mEq tablet extended release 10 meq PO DAILY 30 Days Qty: 30 0RF clopidogrel 75 mg Tablet 75 mg PO DAILY 30 Days Qty: 30 0RF aspirin 81 mg Tablet,Delayed Release (Dr/Ec) 81 mg PO DAILY 30 Days Qty: 30 0RF nicotine 21 mg/24 hr Patch 24 Hour 1 patch transdermal DAILY 28 Days Qty: 28 0RF metoprolol succinate 25 mg Tablet Extended Release 24 Hr 12.5 mg PO DAILY 30 Days Qty: 30 0RF Advair Diskus 100-50 mcg/dose blister with device 1 inh inhalation BID Qty: 60 0RF albuterol sulfate 90 mcg/actuation HFA aerosol inhaler 1 inh inhalation Q6H PRN (Reason: shortness of breath or wheezing) Qty: 8.5 0RF Discharge Orders: Discharge ED (Routine); Ordered 12/02/23 Ordered By: Giancarlo Deleon Patient Instructions: Heart Failure (ED), Opioid Safety, Pain Management Activity Restrictions/Additional Instructions: Return for chest discomfort, shortness of breath, any other new or concerning symptoms. If your vest alarms again, you should come in for evaluation, in particular if you receive a shock. Fill your medications today as directed. You should take them this evening. Follow-up with your doctor. Coding Level of Care Code ED Life Skills Specialist for Chg Fwd Documented by User: Giancarlo Deleon DO 12/02/23 02:39 HPI - SOB/Dyspnea General: Chief Complaint: Chest Pain Stated Complaint: CP Time Seen by Provider: 12/01/23 22:43 [facility] ED PFSH: Medical History HLD (hyperlipidemia) HTN (hypertension) with goal to be determined COPD (chronic obstructive pulmonary disease) History of CAD (coronary artery disease) Surgical History History of coronary artery bypass graft Family History Mother CAD (coronary artery disease) Sister CAD (coronary artery disease) Other Bleeding disorder Social History Smoking and tobacco/nicotine status: current every day tobacco/nicotine user Alcohol intake: never Substance/Drug Use: never Course Vital Signs: Vital signs: Vital Signs Temperature 97.9 F 12/01/23 22:43 Pulse Rate 102 H 12/02/23 03:09 Respiratory Rate 17 12/02/23 03:09 Blood Pressure 123/84 12/02/23 03:09 Pulse Oximetry 94 12/01/23 22:43 Oxygen Delivery Me thod Room Air 12/01/23 22:43 MDM - SOB/Dyspnea Medical Decision Making This patient was originally seen by Mrs. Damon?SHIRLEY Christy.? I agree with her history, evaluation, and treatment. I have evaluated the patient as well. The LifeVest was interrogated. It shows that the patient had 4 episodes of nonsustained ventricular tachycardia that was sensed, but not cardioverted as it did not meet criteria for cardioversion. No arrhythmias on the monitor here. Laboratory testing shows an unremarkable CBC, BUN of 28, with normal creatinine of 0.8. Potassium is 3.5. Magnesium 2.2 with a phosphorus of 3.4. Initial troponin is 120, with 2-hour troponin at 103. Chest x-ray reveals some atelectasis in the right hilum. I spoke with our hospitalist about this patient. He has been unable to get his medications at the pharmacy due to weather, and therefore has not had his Plavix, etc. today. He shows no signs of in-stent restenosis or occlusion by EKG or laboratory testing. His potassium will be repleted. He is given his home medications as a dose for 12/01. He was given the option of observation, although apart from wearing his vest, and taking his medications, it is very likely that no other intervention will be recommended at this time. He promises me he will get his medications at discharge. He would like to go home. He will be allowed home for outpatient follow-up. He will wear his vest as indicated. He knows to return for any further symptoms. Lab Data 12/01/23 22:26 12/01/23 22:26 Labs/Radiology: Radiology Impressions Chest X-Ray 12/01/23 22:44 IMPRESSION: 1. Right hilar atelectasis versus infiltrate. 2. Emphysematous changes. 3. Sternotomy wires. 4. Cardiomegaly. Laboratory Results WBC 10.76 10^3/uL (3.29-11.43) 12/01/23 22: RBC 5.64 10^6/uL (3.85-5.65) 12/01/23 22:26 Hgb 17.30 g/dL (11.27-16.99) H 12/01/23 22: Hct 54.1 % (37-53) H 12/01/23 22: MCV 95.9 fl (82-101) 12/01/23 22: MCH 30.7 pg (27-33) 12/01/23 22: MCHC 32.0 g/dL (30-55) 12/01/23 22: RDW 13.8 % (12.1-15.1) 12/01/23 22: Plt Count 315 10^3/cmm (157-399) 12/01/23 22: MPV 9.2 fL (7.4-10.4) 12/01/23 22: Neut % (Auto) 70.1 % 12/01/23 22: Lymph % (Auto) 12.5 % 12/01/23: Walker % (Auto) 10.6 % 12/01/23 22: Eos % (Auto) 1.2 % 12/01/23 22: Baso % (Auto) 0.8 % 12/01/23: Neut # (Auto) 7.53 10^3/uL (1.8-7.7) 12/01/23 22: Lymph # (Auto) 1.4 10^3/uL (0.8-4.8) 12/01/23: Walker # (Auto) 1.1 10^3/uL (0.2-0.9) H 12/01/23 22: Eos # (Auto) 0.1 10^3/uL (0.0-0.8) 12/01/23: Baso # (Auto) 0.1 10^3/uL (0.0-0.1) 12/01/23: Nucleated RBC % (auto) 0 % 12/01/23: Nucleated RBCs # 0.0 /100WBC 12/01/23 22: Sodium 141 mmol/L (136-145) 12/01/23 22: Potassium 3.5 mmol/L (3.5-5.1) 12/01/23 22: Chloride 95 mmol/L (98-107) L 12/01/23 22: Carbon Dioxide 35 mmol/L (22-29) H 12/01/23 22: Anion Gap 14.5 (5-19) 12/01/23 22:26 BUN 28 mg/dL (8-23) H 12/01/23 22: Creatinine 0.8 mg/dL (0.7-1.2) 12/01/23 22: GFR Calculation 95.6 mL/min (90-130) 12/01/23 22:26 Glucose 147 mg/dL (65-115) H 12/01/23 22:26 Calculated Osmolality 300 mOsm/kg (285-295) H 12/01/23 22:26 Calcium 9.2 mg/dL (8.5-10.5) 12/01/23 22: Phosphorus 3.4 mg/dL (2.5-4.5) 12/02/23 00:30 Magnesium 2.2 mg/dL (1.7-2.3) 12/02/23 00:30 Total Bilirubin 0.6 mg/dL (0.15-1.2) 12/01/23 22:26 AST 55 U/L (0-40) H 12/01/23 22: ALT 57 U/L (0-41) H 12/01/23 22: Alkaline Phosphatase 108 U/L (40-130) 12/01/23 22:26 Troponin T Baseline 120 ng/L (0-15) H* 12/01/23 22: Troponin T 120 Minute 102.9 ng/L (0-15) H 12/02/23 00:30 Delta Troponin T -17.1 ABS# (0-10) L 12/02/23 00:30 NT-Pro-B Natriuret Pep 5239 pg/mL (0-125) H 12/01/23 22:26 Total Protein 7.4 g/dL (6.6-8.7) 12/01/23 22: Albumin 4.0 g/dL (3.5-5.2) 12/01/23 22: Globulin 3.4 g/dL (1.3-4.6) 12/01/23 22: All radiology interpretation(s) finalized by discharge Discharge Plan Discharge Patient Disposition: Home Clinical Impression: Ischemic cardiomyopathy, Non-sustained ventricular tachycardia Condition: Stable Prescriptions: Continued furosemide 40 mg Tablet 40 mg PO DAILY@0800 30 Days Qty: 30 0RF atorvastatin 40 mg Tablet 40 mg PO BEDTIME 30 Days Qty: 30 0RF prednisone 20 mg Tablet 40 mg PO DAILY 5 Days Qty: 10 0RF Klor-Con 10 10 mEq tablet extended release 10 meq PO DAILY 30 Days Qty: 30 0RF clopidogrel 75 mg Tablet 75 mg PO DAILY 30 Days Qty: 30 0RF aspirin 81 mg Tablet,Delayed Release (Dr/Ec) 81 mg PO DAILY 30 Days Qty: 30 0RF nicotine 21 mg/24 hr Patch 24 Hour 1 patch transdermal DAILY 28 Days Qty: 28 0RF metoprolol succinate 25 mg Tablet Extended Release 24 Hr 12.5 mg PO DAILY 30 Days Qty: 30 0RF Advair Diskus 100-50 mcg/dose blister with device 1 inh inhalation BID Qty: 60 0RF albuterol sulfate 90 mcg/actuation HFA aerosol inhaler 1 inh inhalation Q6H PRN (Reason: shortness of breath or wheezing) Qty: 8.5 0RF Discharge Orders: Discharge ED (Routine); Ordered 12/02/23 Ordered By: Giancarlo Deleon Patient Instructions: Heart Failure (ED), Opioid Safety, Pain Management Activity Restrictions/Additional Instructions: Return for chest discomfort, shortness of breath, any other new or concerning symptoms. If your vest alarms again, you should come in for evaluation, in particular if you receive a shock. Fill your medications today as directed. You should take them this evening. Follow-up with your doctor. Coding Level of Care Code ED Life Skills Specialist for Raine Yepez
[2023-12-01 23:01] LABS: Basophils # 0.1 10^3/uL (0.0-0.1); Basophils % 0.8 %; Eosinophils # 0.1 10^3/uL (0.0-0.8); Eosinophils % 1.2 %; Hematocrit 54.1 % (37-53); Lymphocytes # 1.4 10^3/uL (0.8-4.8); Lymphocytes % 12.5 %; Mean Corpuscular Hemoglobin 30.7 pg (27-33); Mean Corpuscular Volume 95.9 fl (82-101); Mean Platelet Volume 9.2 fL (7.4-10.4); Monocytes # 1.1 10^3/uL (0.2-0.9); Monocytes % 10.6 %; Neutrophils # 7.53 10^3/uL (1.8-7.7); Neutrophils % 70.1 %; Nucleated Red Blood Cells % 0 %; Platelet Count 315 10^3/cmm (157-399); Red Blood Count 5.64 10^6/uL (3.85-5.65); Red Cell Distribution Width 13.8 % (12.1-15.1); White Blood Count 10.76 10^3/uL (3.29-11.43)
[2023-12-01 23:03] VITALS: BP 121/84; PULSE 105; RESP 19
[2023-12-01 23:25] LABS: Troponin(5th) Baseline 120 ng/L (0-15)
[2023-12-01 23:32] VITALS: BP 122/85; PULSE 106; RESP 20
[2023-12-01 23:32] LABS: Alanine Aminotransferase 57 U/L (0-41); Alkaline Phosphatase 108 U/L (40-130); Anion Gap 14.5 (5-19); Aspartate Amino Transferase 55 U/L (0-40); Blood Urea Nitrogen 28 mg/dL (8-23); Calcium 9.2 mg/dL (8.5-10.5); Carbon Dioxide 35 mmol/L (22-29); Chloride 95 mmol/L (98-107); Creatinine Clr Calc Pharmacy 60.6363; Globulin 3.4 g/dL (1.3-4.6); Glomerular Filtration Rate 95.6 mL/min (90-130); Glucose 147 mg/dL (65-115); NT Pro B Type Natriuretic Pept 5239 pg/mL (0-125); Osmolality Calculated 300 mOsm/kg (285-295); Potassium 3.5 mmol/L (3.5-5.1); Sodium 141 mmol/L (136-145); Total Bilirubin 0.6 mg/dL (0.15-1.2); Total Protein 7.4 g/dL (6.6-8.7)
[2023-12-02] VITALS: BP 120/81; PULSE 110; RESP 18
--- NOTE | 2023-12-02 00:10 | PC.NURSE ---
Pt's girlfriend brought the hot spot for pt's lifevest, plugged in at bedside, new data transmitted.
[2023-12-02 00:30] VITALS: BP 136/94; PULSE 109
[2023-12-02 00:56] LABS: Magnesium 2.2 mg/dL (1.7-2.3); Phosphorus 3.4 mg/dL (2.5-4.5)
[2023-12-02 01:14] LABS: Troponin 5 2HR 102.9 ng/L (0-15); Troponin 5 2HR Delta -17.1 ABS# (0-10)
[2023-12-02 01:15] VITALS: BP 121/93; PULSE 103; RESP 17
--- NOTE | 2023-12-02 01:47 | ECG_ITS ---
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 Measurements Intervals [place] Rate: 100 P: 73 NC: 202 QRS: 268 QRSD: 161 T: 79 QT: 395 QTc: 510 Interpretive Statements SINUS TACHYCARDIA LEFT ATRIAL ENLARGEMENT [-0.15mV P-WAVE IN V1/V2] INTRAVENTRICULAR CONDUCTION DELAY [130+ ms QRS DURATION] Compared to ECG 12/01/2023 22:48:23 No significant changes Electronically Signed On 12-02-2023 7:59:43 PLAQUE MAKER by Mehran Singh M.D. [id number]
[2023-12-02] MEDS: atorvastatin 40 mg Tablet PO (02:58)
[2023-12-02] MEDS: predniSONE 20 mg Tablet 40 MG PO (02:58)
[2023-12-02] MEDS: metoprolol tartrate 25 mg Tablet 12.5 MG PO (02:59)
[2023-12-02] MEDS: potassium chloride ER 20 mEq Tablet 40 MEQ PO (03:00)
[2023-12-02] MEDS: clopidogrel 75 mg Tablet PO (03:00)
[2023-12-02] MEDS: FUROsemide 40 mg Tablet PO (03:01)
--- NOTE | 2023-12-02 03:08 | PC.NURSE ---
pt leads pt states since he is dc'd he does not want to wear the cardiac leads that were on. pt self removed everything.
[2023-12-02 03:09] VITALS: BP 123/84; PULSE 102; RESP 17
== END 2023-12-02 03:11 | disposition home or self-care (01) ==
PROVIDERS: Physician Assistant; Emergency Provider Emergency Medicine
DX: I47.29 Other ventricular tachycardia (principal); I25.5 Ischemic cardiomyopathy; I10 Essential (primary) hypertension; Z79.02 Long term (current) use of antithrombotics/antiplatelets; Z79.82 Long term (current) use of aspirin; E78.5 Hyperlipidemia, unspecified; J44.9 Chronic obstructive pulmonary disease, unspecified; I25.10 Atherosclerotic heart disease of native coronary artery without angina pectoris; Z95.1 Presence of aortocoronary bypass graft; Z72.0 Tobacco use
CPT/HCPCS: 71045; 80053; 83735; 83880; 84100; 84484; 85025; 93005; 99285; J7512

== ENCOUNTER → 2023-12-05 14:24 | Outpatient (BNVA) | payer MEDICARE, SELFPAY | PROVIDERS: Visit Provider Nurse Practitioner Family | DX: I47.29 Other ventricular tachycardia (principal); I25.5 Ischemic cardiomyopathy; I51.7 Cardiomegaly | CPT/HCPCS: 93005 ==

== ENCOUNTER 2023-12-05 14:51 | Emergency (ER) | payer MEDICARE, SELFPAY ==
[2023-12-05 14:56] VITALS: BP 122/72; PULSE 110; RESP 17; TEMP 36.3; O2SAT 97; BMI 16.7
--- NOTE | 2023-12-05 15:00 | ECG_ITS ---
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 Measurements Intervals [place] Rate: 108 P: -75 UT: 145 QRS: 263 QRSD: 169 T: 77 QT: 441 QTc: 593 Interpretive Statements ECTOPIC ATRIAL TACHYCARDIA LEFT ATRIAL ENLARGEMENT [-0.15mV P-WAVE IN V1/V2] INTRAVENTRICULAR CONDUCTION DELAY [130+ ms QRS DURATION] Compared to ECG 12/05/2023 14:32:45 Atrial abnormality now present Intraventricular conduction delay now present Right bundle-branch block no longer present T-wave abnormality no longer present Possible ischemia no longer present Electronically Signed On 12-05-2023 17:48:24 OSS ARCHITECT by Mehran Singh M.D. [id number]
--- NOTE | 2023-12-05 15:43 | ED_ITS ---
HPI - General Adult 2 General: Chief complaint: General Medical Stated complaint: low hr Time Seen by Provider: 12/05/23 15:37 Source: patient Mode of arrival: ambulatory History of Present Illness: This patient was at cardiology clinic today and was referred to the emergency department. Apparently had stents placed approximately 5 days ago and he tells me that he just now got his meds filled. He still occasionally smoking cigarettes. He denies any chest pain shortness of breath or other constitutional symptoms at this time. Additional information was obtained from the cardiology clinic. The concern was that he was had not taken his medications and was significantly tachycardic and whether or not he was having a EKG changes indicative of ischemia was not clear because of his tachycardia so the time that slowing his heart rate a bit with some beta-kacey. PFSH ED 2 PFSH: Medical History Dementia History of throat cancer Tobacco use disorder, moderate, dependence Uses LifeVest defibrillator Heart failure with reduced ejection fraction Anxiety CAD (coronary artery disease) HLD (hyperlipidemia) HTN (hypertension) with goal to be determined COPD (chronic obstructive pulmonary disease) History of CAD (coronary artery disease) Surgical History Hx of heart artery stent History of coronary artery bypass graft Family History Mother CAD (coronary artery disease) Sister CAD (coronary artery disease) Other Bleeding disorder Social History Smoking and tobacco/nicotine status: current every day tobacco/nicotine user Alcohol intake: current Alcohol intake frequency: holidays/special occasions only Alcohol type: beer Substance/Drug Use: never Course 2 Reevaluation(s): Reevaluation #1: While waiting for the second troponin the patient became impatient and decided that he would prefer to go home. He was totally asymptomatic throughout his entire emergency department stay. We discussed the risks of going home without knowing if he is having any ongoing ischemia he voiced understanding but still preferred to go home at this time. He had intact decision-making capacity and could voiced to me the risks and benefits of his decision. Time: 18:46 Consultations: Consultation #1: Discussed with Dr. Lamas who recommends 0 and 2-hour troponin to ensure that they are not rising. He did review the EKG. He did not feel his was concerning at this time as long as his troponins are not rising. Time: 17:07 Vital Signs: Vital signs: Vital Signs Temperature 97.4 F L 12/05/23 14:56 Pulse Rate 62 12/05/23 18:00 Respiratory Rate 17 12/05/23 14:56 Blood Pressure 123/80 12/05/23 18:00 Pulse Oximetry 94 12/05/23 18:00 Oxygen Delivery Me thod Room Air 12/05/23 18:00 MDM - General Adult Medical Decision Making Patient was referred to the emergency department by cardiology clinic. Just recently had a stent placed and on his visit there today they were not convinced that he was taking his medication to include his post stent DOAC etc. At that visit he also had a tachycardia and so they wanted him to have an additional dose of metoprolol and a repeat EKG. On presentation here both he and his daughter were adamant that he takes all his prescribed medications to include daily prednisone. His clinical examination is reassuring. His initial EKG showed tachycardia with bundle branch block pattern. He was then given a 5 mg dose of metoprolol which brought his rate down to in a normal range and a repeat EKG was performed. That EKG was reviewed with on-call cardiology and while it was not exactly the same as his prior EKGs there were not any anatomic consistencies with his changes. Serial troponins were recommended and those were obtained to ensure that there was not rising. It should be noted his troponin will be elevated due to his most recent event. His leukocytosis was noted but no evidence of cough chest x- ray changes dysuria or any other sources of fever or possible infection and it is felt that that was likely due to his chronic prednisone use. Medical Records I reviewed the patient's medical records. recent pci Lab Data I reviewed the patient's lab results. on prednisone 12/05/23 15:29 12/05/23 15:29 Laboratory Results WBC 21.98 10^3/uL (3.29-11.43) H 12/05/23 15:29 RBC 6.78 10^6/uL (3.85-5.65) H 12/05/23 15:29 Hgb 20.60 g/dL (11.27-16.99) H 12/05/23: Hct 63.3 % (37-53) H 12/05/23: MCV 93.4 fl (82-101) 12/05/23: MCH 30.4 pg (27-33) 12/05/23: MCHC 32.5 g/dL (30-55) 12/05/23: RDW 14.1 % (12.1-15.1) 12/05/23: Plt Count 378 10^3/cmm (157-399) 12/05/23: MPV 9.3 fL (7.4-10.4) 12/05/23: Neut % (Auto) 93.0 % 12/05/23: Lymph % (Auto) 2.5 % 12/05/23 [place] % (Auto) 2.2 % 12/05/23 Eos % (Auto) 0.0 % 12/05/23 Baso % (Auto) 0.9 % 12/05/23: Neut # (Auto) 20.46 10^3/uL (1.8-7.7) H 12/05/23: Lymph # (Auto) 0.6 10^3/uL (0.8-4.8) L 12/05/23: [place] # (Auto) 0.5 10^3/uL (0.2-0.9) 12/05/23 Eos # (Auto) 0.0 10^3/uL (0.0-0.8) 12/05/23: Baso # (Auto) 0.2 10^3/uL (0.0-0.1) H 12/05/23 Nucleated RBC % (auto) 0 % 12/05/23 Nucleated RBCs # 0.0 /100WBC 12/05/23: Sodium 136 mmol/L (136-145) 12/05/23: Potassium 4.4 mmol/L (3.5-5.1) 12/05/23: Chloride 90 mmol/L (98-107) L 12/05/23:29 Carbon Dioxide 33 mmol/L (22-29) H 12/05/23 15:29 Anion Gap 17.4 (5-19) 12/05/23 15:29 BUN 36 mg/dL (8-23) H 12/05/23 15:29 Creatinine 0.8 mg/dL (0.7-1.2) 12/05/23 15:29 GFR Calculation 95.6 mL/min (90-130) 12/05/23 15:29 Glucose 138 mg/dL (65-115) H 12/05/23 15:29 Calculated Osmolality 293 mOsm/kg (285-295) 12/05/23 15:29 Calcium 10.8 mg/dL (8.5-10.5) H 12/05/23 15:29 Troponin T Baseline 74 ng/L (0-15) H 12/05/23 15:29 All radiology interpretation(s) finalized by discharge EKG Data EKG 1: I personally reviewed and interpreted this EKG as follows: Interpretation: Contemporaneous review of the EKG compared with prior EKGs shows a ventricular rate of 80 bpm with a MT interval of 202 ms. QRS duration is 175 ms. Normal corrected QT interval. Right axis deviation. His QRS complexes are generally unchanged from prior tracings without any discoordinate or Concorde note ST changes of concern. He does have isolated T wave inversion in limb lead III as well as nonspecific aced ST changes in V6. Discharge Plan Discharge Patient Disposition: Home Clinical Impression: Ischemic cardiomyopathy CAD (coronary artery disease) Qualifiers: Coronary Disease-Associated Artery/Lesion type: [place] artery [place] vs. transplanted heart: [place] heart Associated angina: without angina Qualified Code(s): I25.10 - Atherosclerotic heart disease of [place] coronary artery without angina pectoris Condition: Stable Prescriptions: No Action memantine 10 mg tablet 10 mg PO BID Qty: 60 1RF escitalopram oxalate [Lexapro] 10 mg tablet 10 mg PO DAILY Qty: 30 0RF furosemide 40 mg Tablet 40 mg PO DAILY@0800 30 Days Qty: 30 0RF atorvastatin 40 mg Tablet 40 mg PO BEDTIME 30 Days Qty: 30 0RF potassium chloride [Klor-Con 10] 10 mEq tablet extended release 10 meq PO DAILY 30 Days Qty: 30 0RF clopidogrel 75 mg Tablet 75 mg PO DAILY 30 Days Qty: 30 0RF aspirin 81 mg Tablet,Delayed Release (Dr/Ec) 81 mg PO DAILY 30 Days Qty: 30 0RF albuterol sulfate 90 mcg/actuation HFA aerosol inhaler 1 inh inhalation Q6H PRN (Reason: shortness of breath or wheezing) Qty: 8.5 0RF metoprolol succinate 25 mg tablet extended release 24 hr 12.5 mg PO QPM prednisone 20 mg Tablet 40 mg PO DAILY Discharge Orders: Discharge ED (Routine); Ordered 12/05/23 Ordered By: Shon Ernst Discharge Diet: Usual diet Discharge Activity: Resume usual activity Patient Instructions: Opioid Safety, Pain Management Activity Restrictions/Additional Instructions: Ensure that you take all your prescribed medications on a regular basis. Follow-up with cardiology as scheduled. If you develop any chest pain shortness of breath or other concerning can symptoms you may return to the emergency department at any time. You have chosen to leave the emergency department for we obtained your second blood test. There is risk to do so as we do not know if you are having any ongoing heart related issues. This of this serves to reiterate that you have chosen to do so voluntarily and that if you develop any chest pain shortness of breath etc. you are welcome to return at any time. Stand Alone Forms: Against Medical Advice Coding Level of Care Code ED Health And Safety Manager for Raine Yepez
[2023-12-05 16:01] LABS: Basophils # 0.2 10^3/uL (0.0-0.1); Basophils % 0.9 %; Hematocrit 63.3 % (37-53); Lymphocytes # 0.6 10^3/uL (0.8-4.8); Lymphocytes % 2.5 %; Mean Corpuscular HGB Conc 32.5 g/dL (30-55); Mean Corpuscular Hemoglobin 30.4 pg (27-33); Mean Corpuscular Volume 93.4 fl (82-101); Mean Platelet Volume 9.3 fL (7.4-10.4); Monocytes # 0.5 10^3/uL (0.2-0.9); Monocytes % 2.2 %; Neutrophils # 20.46 10^3/uL (1.8-7.7); Nucleated Red Blood Cells % 0 %; Platelet Count 378 10^3/cmm (157-399); Red Blood Count 6.78 10^6/uL (3.85-5.65); Red Cell Distribution Width 14.1 % (12.1-15.1); White Blood Count 21.98 10^3/uL (3.29-11.43)
[2023-12-05 16:15] LABS: Blood Urea Nitrogen 36 mg/dL (8-23); Calcium 10.8 mg/dL (8.5-10.5); Carbon Dioxide 33 mmol/L (22-29); Chloride 90 mmol/L (98-107); Creatinine Clr Calc Pharmacy 60.6363; Glomerular Filtration Rate 95.6 mL/min (90-130); Glucose 138 mg/dL (65-115); Osmolality Calculated 293 mOsm/kg (285-295); Sodium 136 mmol/L (136-145)
[2023-12-05 16:16] LABS: Anion Gap 17.4 (5-19); Potassium 4.4 mmol/L (3.5-5.1)
[2023-12-05] MEDS: metoprolol tartrate 1 mg/1 mL SDV 5 mL 5 MG IVP (16:27)
[2023-12-05 16:28] VITALS: BP 127/93; PULSE 95; O2SAT 92
--- NOTE | 2023-12-05 16:33 | ECG_ITS ---
[facility] Test Date: 2023-12-05 Pat Name: Ruslan Zuniga Department: Room: Gender: Male Movie Editor: : 1955 Requested By: Shon Ernst Order Number: [id number] Mueller MD: Mehran Singh M.D. Measurements Intervals [place] Rate: 80 P: -29 IN: 202 QRS: 167 QRSD: 175 T: -8 QT: 462 QTc: 535 Interpretive Statements SINUS RHYTHM LEFT ATRIAL ENLARGEMENT [-0.15mV P-WAVE IN V1/V2] RIGHT AXIS DEVIATION [QRS AXIS > 100] INTRAVENTRICULAR CONDUCTION DELAY [130+ ms QRS DURATION] Compared to ECG 12/05/2023 15:03:55 Right-axis deviation now present Electronically Signed On 12-05-2023 17:50:22 CORE DIPPER by Mehran Singh M.D. [id number]
[2023-12-05 17:00] VITALS: BP 131/94; PULSE 78; O2SAT 95
[2023-12-05 17:33] LABS: Troponin(5th) Baseline 74 ng/L (0-15)
[2023-12-05 18:00] VITALS: BP 123/80; PULSE 62; O2SAT 94
[2023-12-05 18:52] LABS: Troponin 5 2HR 61.35 ng/L (0-15)
== END 2023-12-05 18:53 | disposition home or self-care (01) ==
PROVIDERS: Emergency Provider Emergency Medicine
DX: I25.10 Atherosclerotic heart disease of native coronary artery without angina pectoris (principal); I25.5 Ischemic cardiomyopathy; I11.0 Hypertensive heart disease with heart failure; I50.20 Unspecified systolic (congestive) heart failure; F03.90 Unspecified dementia, unspecified severity, without behavioral disturbance, psychotic disturbance, mood disturbance, and anxiety; Z85.89 Personal history of malignant neoplasm of other organs and systems; E78.5 Hyperlipidemia, unspecified; J44.9 Chronic obstructive pulmonary disease, unspecified; Z95.1 Presence of aortocoronary bypass graft; Z72.0 Tobacco use; Z79.82 Long term (current) use of aspirin; Z79.02 Long term (current) use of antithrombotics/antiplatelets; R94.31 Abnormal electrocardiogram [ECG] [EKG]; I47.29 Other ventricular tachycardia; I51.7 Cardiomegaly
CPT/HCPCS: 36415; 80048; 84484; 85025; 93005; 96374; 99214; 99284; J3490

== ENCOUNTER 2024-01-03 15:48 | Emergency (ER) | payer MEDICARE, SELFPAY ==
[2024-01-03 15:53] VITALS: BP 127/90; PULSE 87; RESP 18; TEMP 35.7; O2SAT 100
--- NOTE | 2024-01-03 15:57 | CTR_ITS ---
PROCEDURE INFORMATION: Exam: CT Cervical Spine Without Contrast Exam date and time: 01/03/2024 4:01 PM Age: 68 years old Clinical indication: Injury or trauma; Fall; Blunt trauma TECHNIQUE: Imaging protocol: Computed tomography of the cervical spine without contrast. Radiation optimization: All CT scans at this facility use at least one of these dose optimization techniques: automated exposure control; mA and/or kV adjustment per patient size (includes targeted exams where dose is matched to clinical indication); or iterative reconstruction. COMPARISON: CT head wo con* [id number] 01/03/2024 4:01 PM RADIATION DOSE METRICS: Total DLP (mGy-cm): 411.4 FINDINGS: Bones/joints: No acute fracture. Normal alignment. No severe spinal canal stenosis. Lungs: Biapical blebs. Soft tissues: Unremarkable. CT/CT cervical spin wo con* [id number] IMPRESSION: No acute findings.
--- NOTE | 2024-01-03 15:57 | CTR_ITS ---
PROCEDURE INFORMATION: Exam: CT Head Without Contrast Exam date and time: 01/03/2024 4:01 PM Age: 68 years old Clinical indication: Injury or trauma; Fall; Blunt trauma (contusions or hematomas) TECHNIQUE: Imaging protocol: Computed tomography of the head without contrast. Radiation optimization: All CT scans at this facility use at least one of these dose optimization techniques: automated exposure control; mA and/or kV adjustment per patient size (includes targeted exams where dose is matched to clinical indication); or iterative reconstruction. COMPARISON: CT cervical spin wo con* [id number] 01/03/2024 4:01 PM RADIATION DOSE METRICS: Total DLP (mGy-cm): 917.3 FINDINGS: Brain: No hemorrhage. No edema. Moderate diffuse cerebral atrophy and mild sequela of chronic small vessel ischemic disease. No mass effect. Cerebral ventricles: No ventriculomegaly. Paranasal sinuses: Visualized sinuses are unremarkable. No fluid levels. Mastoid air cells: Visualized mastoid air cells are well aerated. Bones/joints: Unremarkable. No acute fracture. Soft tissues: Left forehead hematoma. CT/CT head wo con* [id number] IMPRESSION: No acute intracranial abnormality.
--- NOTE | 2024-01-03 15:57 | XRR_ITS ---
PROCEDURE INFORMATION: Exam: XR Chest Exam date and time: 01/03/2024 4:30 PM Age: 68 years old Clinical indication: Injury or trauma; Fall; Other: Unknown TECHNIQUE: Imaging protocol: Radiologic exam of the chest. Views: 1 view. COMPARISON: CR (CHEST, ) 12/01/2023 10:46 PM FINDINGS: Lungs: Hyperinflated lungs. No consolidation. Pleural spaces: No pleural effusion. No pneumothorax. Heart/Mediastinum: Mild cardiomegaly. Sequela of prior CABG. Bones/joints: Sternotomy wires noted. Visualized osseous structures are intact. XR/XR chest 1V portable [id number] IMPRESSION: No acute findings.
--- NOTE | 2024-01-03 16:19 | ECG_ITS ---
[facility] Test Date: 2024-01-03 Pat Name: Ruslan Zuniga Department: Room: Gender: Male Practice Advisor: : 1955 Requested By: Clay Lr Order Number: [id number] Ami MD: Mehran Singh M.D. Measurements Intervals [place] Rate: 98 P: -90 MI: 180 QRS: 258 QRSD: 183 T: 60 QT: 457 QTc: 586 Interpretive Statements ECTOPIC ATRIAL RHYTHM POSSIBLE LEFT ATRIAL ENLARGEMENT [-0.1mV P-WAVE IN V1/V2] INTRAVENTRICULAR CONDUCTION DELAY [130+ ms QRS DURATION] Compared to ECG 12/05/2023 16:53:35 Ectopic atrial rhythm now present Sinus rhythm no longer present Right-axis deviation no longer present Electronically Signed On 01-03-2024 23:45:40 RADIOISOTOPE PRODUCTION OPERATOR by Mehran Singh M.D. [id number]
--- NOTE | 2024-01-03 16:24 | ED_ITS ---
HPI - Syncope 2 General: Chief Complaint: Syncope Stated Complaint: syncope Time Seen by Provider: 01/03/24 15:58 Source: patient and EMS Mode of arrival: EMS Limitations: no limitations History of Present Illness: 68-year-old male states that he had chris en up to go to the bathroom and upon standing he had a syncopal event. He did hit his head has a hematoma he is on blood thinners. He denies any chest pain or headache before or after the event he denies any shortness of breath he has extensive history of coronary disease he had a cath done here roughly a month ago Associated symptoms: Reports headache(s); Deny abdominal pain, chest pain, fever(s) or nausea Review of Systems 2 Const: Denies: fever(s), chills, body aches or change in appetite ENMT: Denies: throat pain or dental pain Card: Reports: syncope; Denies: chest pain Resp: Denies: dyspnea GI: Denies: abdominal pain, nausea, vomiting or diarrhea Musc: Denies: neck pain or back pain Skin/Breast: Denies: rash Neuro: Reports: headache(s) PFSH ED 2 PFSH: Medical History Dementia History of throat cancer Tobacco use disorder, moderate, dependence Uses LifeVest defibrillator Heart failure with reduced ejection fraction Anxiety CAD (coronary artery disease) HLD (hyperlipidemia) HTN (hypertension) with goal to be determined COPD (chronic obstructive pulmonary disease) History of CAD (coronary artery disease) Surgical History Hx of heart artery stent History of coronary artery bypass graft Family History Mother CAD (coronary artery disease) Sister CAD (coronary artery disease) Other Bleeding disorder Social History Smoking and tobacco/nicotine status: current every day tobacco/nicotine user Alcohol intake: current Alcohol intake frequency: holidays/special occasions only Alcohol type: beer Substance/Drug Use: never Physical Exam 2 Const: COMMON NORMALS: patient oriented x3 HENMT: COMMON NORMALS: normocephalic HEAD & SCALP: normocephalic OTHER: hematoma to head Eye: COMMON NORMALS: Equal, round and reactive pupils present and EOMs intact bilaterally PUPIL: Yes Equal, round and reactive pupils present Neck/C-Spine: COMMON NORMALS: full ROM and supple Chest: COMMONS NORMALS: normal inspection of the chest and normal palpation of entire chest wall Resp: COMMON NORMALS: normal respiratory effort, No retractions, No use of accessory muscles and clear to auscultation bilaterally AUSCULTATION: clear to auscultation bilaterally Cardio: COMMON NORMALS: regular rate, regular rhythm and No murmurs present (Cardio) RATE: regular rate RHYTHM: regular rhythm GI: COMMON NORMALS: Normal to inspection, nondistended, normoactive bowel sounds present, Soft to palpation, non-tender and no masses PALPATION: Yes Soft to palpation Extremity: COMMON NORMALS: normal to inspection and full ROM Neuro: COMMON NORMALS: patient oriented x3, moves all extremities and no focal motor deficits Psych: COMMON NORMALS: mental status grossly normal, Normal thought process present and cooperative THOUGHT PROCESS: Normal thought process present Skin: COMMON NORMALS: no rashes or lesions noted and no wounds GENERAL SKIN EXAM: no rashes or lesions noted Course 2 Vital Signs: Vital signs: Vital Signs Temperature 96.2 F L 01/03/24 18:45 Pulse Rate 87 01/03/24 18:45 Respiratory Rate 18 01/03/24 18:45 Blood Pressure 127/90 01/03/24 18:45 Pulse Oximetry 100 01/03/24 18:45 Oxygen Delivery Me thod Room Air 01/03/24 15:53 MDM - Syncope Medical Decision Making Patient patient presents here after a syncopal event likely vasovagal he has been well-appearing here blood pressures have been normal he had no chest pain. His imaging here is all normal he is stable for discharge she is to follow-up with PCP and return if worsening he understands agrees to plan Medical Records I reviewed the patient's medical records. Lab Data I reviewed the patient's lab results. 01/03/24 16:00 01/03/24 16:00 Radiology Impressions Cervical Spine CT 01/03/24 15:57 IMPRESSION: No acute findings. Chest X-Ray 01/03/24 15:57 IMPRESSION: No acute findings. Head CT 01/03/24 15:57 IMPRESSION: No acute intracranial abnormality. Laboratory Results WBC 10.67 10^3/uL (3.29-11.43) 01/03/24 16:00 RBC 6.67 10^6/uL (3.85-5.65) H 01/03/24 16:00 Hgb 20.60 g/dL (11.27-16.99) H 01/03/24 16:00 Hct 59.5 % (37-53) H 01/03/24 16:00 MCV 89.2 fl (82-101) 01/03/24 16:00 MCH 30.9 pg (27-33) 01/03/24 16:00 MCHC 34.6 g/dL (30-55) 01/03/24 16:00 RDW 15.7 % (12.1-15.1) H 01/03/24 16:00 Plt Count 304 10^3/cmm (157-399) 01/03/24 16:00 MPV 9.9 fL (7.4-10.4) 01/03/24 16:00 Neut % (Auto) 72.0 % 01/03/24 16:00 Lymph % (Auto) 19.4 % 01/03/24 16:00 [place] % (Auto) 6.4 % 01/03/24 16:00 Eos % (Auto) 0.5 % 01/03/24 16:00 Baso % (Auto) 1.0 % 01/03/24 16:00 Neut # (Auto) 7.68 10^3/uL (1.8-7.7) 01/03/24 16:00 Lymph # (Auto) 2.1 10^3/uL (0.8-4.8) 01/03/24 16:00 [place] # (Auto) 0.7 10^3/uL (0.2-0.9) 01/03/24 16:00 Eos # (Auto) 0.1 10^3/uL (0.0-0.8) 01/03/24 16:00 Baso # (Auto) 0.1 10^3/uL (0.0-0.1) 01/03/24 16:00 Nucleated RBC % (auto) 0 % 01/03/24 16:00 Nucleated RBCs # 0.0 /100WBC 01/03/24 16:00 PT 13.80 SECONDS (12.1-14.9) 01/03/24 16:00 INR 1.03 (0.8-1.2) 01/03/24 16:00 Sodium 134 mmol/L (136-145) L 01/03/24 16:00 Potassium 4.8 mmol/L (3.5-5.1) 01/03/24 16:00 Chloride 91 mmol/L (98-107) L 01/03/24 16:00 Carbon Dioxide 26 mmol/L (22-29) 01/03/24 16:00 Anion Gap 21.8 (5-19) H 01/03/24 16:00 BUN 22 mg/dL (8-23) 01/03/24 16:00 Creatinine 0.9 mg/dL (0.7-1.2) 01/03/24 16:00 GFR Calculation 83.4 mL/min (90-130) L 01/03/24 16:00 Glucose 111 mg/dL (65-115) 01/03/24 16:00 Calculated Osmolality 282 mOsm/kg (285-295) L 01/03/24 16:00 Calcium 9.9 mg/dL (8.5-10.5) 01/03/24 16:00 Total Bilirubin 1.3 mg/dL (0.15-1.2) H 01/03/24 16:00 AST 37 U/L (0-40) 01/03/24 16:00 ALT 24 U/L (0-41) 01/03/24 16:00 Alkaline Phosphatase 134 U/L (40-130) H 01/03/24 16:00 Total Protein 8.5 g/dL (6.6-8.7) 01/03/24 16:00 Albumin 4.3 g/dL (3.5-5.2) 01/03/24 16:00 Globulin 4.2 g/dL (1.3-4.6) 01/03/24 16:00 All radiology interpretation(s) finalized by discharge Discharge Plan Discharge Patient Disposition: Home Clinical Impression: Syncope, CHI (closed head injury) Condition: Stable Prescriptions: No Action ciclopirox 8 % solution 1 applic topical DAILY 28 Days Qty: 6.6 0RF (DME) shower chair See Rx Instructions .Route .MEDSUPPLY Qty: 1 0RF Rx Instructions: As directed (DME) Rollaid with seat See Rx Instructions .Route .MEDSUPPLY Qty: 1 0RF Rx Instructions: As directed escitalopram oxalate [Lexapro] 10 mg tablet 10 mg PO DAILY Qty: 30 0RF memantine 10 mg tablet 10 mg PO BID Qty: 120 1RF atorvastatin 40 mg tablet 40 mg PO BEDTIME 30 Days Qty: 90 1RF aspirin 81 mg tablet,delayed release (DR/EC) 81 mg PO DAILY 90 Days Qty: 90 1RF albuterol sulfate 90 mcg/actuation HFA aerosol inhaler 1 inh inhalation Q6H PRN (Reason: shortness of breath or wheezing) Qty: 8.5 1RF clopidogrel 75 mg tablet 75 mg PO DAILY 30 Days Qty: 90 1RF metoprolol succinate 25 mg tablet extended release 24 hr 12.5 mg PO QPM Qty: 60 1RF Discharge Orders: Discharge ED (Routine); Ordered 01/03/24 Ordered By: Clay Lr Referrals: Ben Slade MD [Primary Care Provider] - 4-7 days Discharge Diet: Advance as tolerated Discharge Activity: Resume usual activity Patient Instructions: Syncope (ED) Coding Level of Care Code ED Disbursing Officer for Raine Yepez
[2024-01-03 16:38] LABS: Basophils # 0.1 10^3/uL (0.0-0.1); Eosinophils # 0.1 10^3/uL (0.0-0.8); Eosinophils % 0.5 %; Hematocrit 59.5 % (37-53); Lymphocytes # 2.1 10^3/uL (0.8-4.8); Lymphocytes % 19.4 %; Mean Corpuscular HGB Conc 34.6 g/dL (30-55); Mean Corpuscular Hemoglobin 30.9 pg (27-33); Mean Corpuscular Volume 89.2 fl (82-101); Mean Platelet Volume 9.9 fL (7.4-10.4); Monocytes # 0.7 10^3/uL (0.2-0.9); Monocytes % 6.4 %; Neutrophils # 7.68 10^3/uL (1.8-7.7); Nucleated Red Blood Cells % 0 %; Platelet Count 304 10^3/cmm (157-399); Red Blood Count 6.67 10^6/uL (3.85-5.65); Red Cell Distribution Width 15.7 % (12.1-15.1); White Blood Count 10.67 10^3/uL (3.29-11.43)
[2024-01-03 17:13] LABS: INR 1.03 (0.8-1.2)
[2024-01-03 17:18] LABS: Alanine Aminotransferase 24 U/L (0-41); Albumin Level 4.3 g/dL (3.5-5.2); Alkaline Phosphatase 134 U/L (40-130); Blood Urea Nitrogen 22 mg/dL (8-23); Calcium 9.9 mg/dL (8.5-10.5); Carbon Dioxide 26 mmol/L (22-29); Chloride 91 mmol/L (98-107); Globulin 4.2 g/dL (1.3-4.6); Glomerular Filtration Rate 83.4 mL/min (90-130); Glucose 111 mg/dL (65-115); Osmolality Calculated 282 mOsm/kg (285-295); Sodium 134 mmol/L (136-145); Total Bilirubin 1.3 mg/dL (0.15-1.2); Total Protein 8.5 g/dL (6.6-8.7)
[2024-01-03 17:20] LABS: Anion Gap 21.8 (5-19); Aspartate Amino Transferase 37 U/L (0-40); Potassium 4.8 mmol/L (3.5-5.1)
--- NOTE | 2024-01-03 18:18 | PC.NURSE ---
discharge delayed due to trying to find a ride home for the patient.
[2024-01-03 18:45] VITALS: BP 127/90; PULSE 87; RESP 18; TEMP 35.7; O2SAT 100
== END 2024-01-03 18:46 | disposition home or self-care (01) ==
PROVIDERS: Emergency Provider Emergency Medicine; PCP Family Medicine
DX: R55 Syncope and collapse (principal); S00.93XA Contusion of unspecified part of head, initial encounter; Z79.02 Long term (current) use of antithrombotics/antiplatelets; Z79.82 Long term (current) use of aspirin; Z72.0 Tobacco use; Z85.89 Personal history of malignant neoplasm of other organs and systems; I25.10 Atherosclerotic heart disease of native coronary artery without angina pectoris; I11.0 Hypertensive heart disease with heart failure; I50.20 Unspecified systolic (congestive) heart failure; E78.5 Hyperlipidemia, unspecified; J44.9 Chronic obstructive pulmonary disease, unspecified; Z95.1 Presence of aortocoronary bypass graft; W18.39XA Other fall on same level, initial encounter
CPT/HCPCS: 70450; 71045; 72125; 80053; 85025; 85610; 93005; 99285

== ENCOUNTER 2024-02-17 14:03 | Outpatient (CLI) | payer MEDICARE, SELFPAY ==
--- NOTE | 2024-02-17 14:15 | USR_ITS ---
PROCEDURE INFORMATION: Exam: US Duplex Bilateral Lower Extremity Arteries Exam date and time: 02/17/2024 2:18 PM Age: 68 years old Clinical indication: Pain; Leg, lower; Bilateral; Additional info: Poor circulation TECHNIQUE: Imaging protocol: Real-time ultrasound scan of the arteries of the bilateral lower extremities with 2-D wilson scale, color Doppler flow and spectral waveform analysis. Images documented and saved. COMPARISON: No relevant prior studies available. FINDINGS: Right external iliac artery: Moderate plaque. Less than 50% visible luminal narrowing. Right iliac arteries demonstrate normal waveforms and peak velocity 103 cm/s. Right common femoral artery: Moderate plaque. Less than 50% visible luminal narrowing. Normal waveform. Peak velocity 119 cm/s. Right superficial femoral artery: Moderate plaque. Less than 50% visible luminal narrowing. Normal waveform. Peak velocity 123 cm/s. Right popliteal artery: Mild plaque. No visible luminal narrowing. Normal waveform. Peak velocity 35 cm/s. Right calf/foot arteries: Right posterior tibial artery: Normal waveform. Peak velocity 60 cm/s. Right dorsalis pedis: Normal waveform. Peak velocity 43 cm/s. Left external iliac artery: Moderate plaque. Less than 50% visible luminal narrowing. Left iliac arteries demonstrate normal waveforms with peak velocity 60 cm/s. Left common femoral artery: Moderate plaque. Less than 50% visible luminal narrowing. Normal waveform. Peak velocity 104 cm/s. Left superficial femoral artery: Moderate plaque. Less than 50% visible luminal narrowing. Normal waveform. Peak velocity 116 cm/s. Left popliteal artery: Moderate plaque. Less than 50% visible luminal narrowing. Normal waveforms. Peak velocity 102 cm/s. Left calf/foot arteries: Left posterior tibial artery: Normal waveform. Peak velocity 50 cm/s. Left dorsalis pedis artery: Normal waveform. Peak velocity 49 cm/s. Other findings: Irregular cardiac rhythm. US/CV arterial duplex [facility] [id number] IMPRESSION: 1. No sign of hemodynamically significant arterial stenosis in the lower extremities. 2. Irregular cardiac rhythm.
== END 2024-02-17 14:04 | disposition home or self-care (01) ==
LOC: RAD 14:03
PROVIDERS: PCP Family Medicine; Visit Provider Family Medicine
DX: I73.9 Peripheral vascular disease, unspecified (principal); I99.9 Unspecified disorder of circulatory system
CPT/HCPCS: 93925

== ENCOUNTER 2024-03-02 15:19 | Outpatient (CLI) | payer MEDICARE, SELFPAY ==
--- NOTE | 2024-03-02 15:15 | USCV_ITS ---
Ruslan Zuniga Age: 68 Gender: M : 1955 Exam Date: 03/02/2024 15:32 Ordering Phys: Corrina Heaton Technologist: REGIS [place] [facility] [place]: ICD determination, BP: 112 / 86 HR: Rhythm: Sinus Technical Quality: Good MEASUREMENTS (Male / Female) Normal Values 2D ECHO LV Diastolic Diameter PLAX 4.9 cm 4.2 - 5.9 / 3.9 - 5.3 cm IVS Diastolic Thickness 0.8 cm 0.6 - 1.0 / 0.6 - 0.9 cm IVS Systolic Thickness 1.1 cm LVPW Diastolic Thickness 2.0 cm 0.6 - 1.0 / 0.6 - 0.9 cm LVPW Systolic Thickness 1.7 cm LVOT Diameter 2.1 cm LV Ejection Fraction 2D Teich 23.5 % LV Ejection Fraction MOD 2C 49.0 % LV Ejection Fraction 2C AL 50.0 % LA Diameter 2.2 cm RA Systolic Volume 4C AL 18.6 ml RA Systolic Volume 4C MOD 17.2 ml Aorta at Sinotubular Diameter 3.0 cm M-MODE LV Ejection Fraction MM Teich -617.3 % IVS Diastolic Thickness MM 2.1 cm 0.6 - 1.0 / 0.6 - 0.9 cm IVS Systolic Thickness MM 4.3 cm LVPW Systolic Thickness MM 0.0 cm FINDINGS Left Ventricle Right Ventricle Right Atrium Left Atrium Mitral Valve Aortic Valve Tricuspid Valve Pulmonic Valve Pericardium Aorta IVC CONCLUSIONS LV systolic function is severely reduced with EF of 5-10%. Severe global hypokinesis. Mehran Singh MD (Electronically Signed) Final Date: 16 March 2024 17:32 S
== END 2024-03-02 15:20 | disposition home or self-care (01) ==
LOC: RAD 15:20
PROVIDERS: PCP Family Medicine; Visit Provider Nurse Practitioner Family
DX: I50.20 Unspecified systolic (congestive) heart failure (principal)
CPT/HCPCS: 93308

== ENCOUNTER → 2024-03-05 08:34 | Outpatient (BNVA) | payer MEDICARE, SELFPAY | PROVIDERS: PCP Family Medicine; Visit Provider Podiatrist Foot & Ankle Surgery | DX: B35.1 Tinea unguium (principal); I73.9 Peripheral vascular disease, unspecified | CPT/HCPCS: 11721; 99203 ==

== ENCOUNTER → 2024-03-16 15:57 | Outpatient (BNVA) | payer OTHER, MEDICARE, SELFPAY | PROVIDERS: PCP Family Medicine; Visit Provider Family Medicine | DX: B35.1 Tinea unguium (principal) | CPT/HCPCS: 80053 ==

== ENCOUNTER 2024-04-14 18:23 | Emergency (ER) | payer OTHER, MEDICARE, SELFPAY ==
[2024-04-14 18:28] VITALS: BP 107/66; PULSE 80; RESP 16; TEMP 36.4; O2SAT 97
--- NOTE | 2024-04-14 18:30 | XRR_ITS ---
PROCEDURE INFORMATION: Exam: XR Chest Exam date and time: 04/14/2024 6:31 PM Age: 68 years old Clinical indication: Shortness of breath; Prior surgery; Surgery date: 6+ months; Surgery type: Open heart TECHNIQUE: Imaging protocol: Radiologic exam of the chest. Views: 1 view. COMPARISON: CR XR chest 1V portable [id number] 01/03/2024 4:30 PM FINDINGS: Tubes, catheters and devices: Left-sided Port-A-Cath. Lungs: No focal consolidation. Pleural spaces: Unremarkable. No pleural effusion. No pneumothorax. Heart/Mediastinum: Unremarkable. No cardiomegaly. Bones/joints: Prior median sternotomy and CABG. XR/XR chest 1V portable [id number] IMPRESSION: No focal consolidation.
--- NOTE | 2024-04-14 18:30 | W.ED.GENADLT ---
HPI - General Adult General: Chief complaint: General Medical Stated complaint: Swollen arms/legs Time Seen by Provider: 04/14/24 18:25 History of Present Illness: 68-year-old man with a history of mild dementia, tobacco abuse, coronary artery disease, hyperlipidemia, hypertension, COPD and coronary artery disease who presents to the emergency room by ambulance from the crisis center. He had been discharged from there is a felt that he was stable from a psychiatric or crisis standpoint. He says he felt like he is swelling all over and so he wanted to come to the emergency room. No shortness of breath. No orthopnea. I do not see any edema on exam. Review of Systems Narrative: Constitutional symptoms: Negative except as documented in HPI. Skin symptoms: Negative except as documented in HPI. Eye symptoms: Negative except as documented in HPI. ENMT symptoms: Negative except as documented in HPI. Respiratory symptoms: Negative except as documented in HPI. Cardiovascular symptoms: Negative except as documented in HPI. Gastrointestinal symptoms: Negative except as documented in HPI. Genitourinary symptoms: Negative except as documented in HPI. Musculoskeletal symptoms: Negative except as documented in HPI. Neurologic symptoms: Negative except as documented in HPI. Psychiatric symptoms: Negative except as documented in HPI. Endocrine symptoms: Negative except as documented in HPI. [facility] ED PFSH: Medical History Dementia History of throat cancer Tobacco use disorder, moderate, dependence Uses LifeVest defibrillator Heart failure with reduced ejection fraction Anxiety CAD (coronary artery disease) HLD (hyperlipidemia) HTN (hypertension) with goal to be determined COPD (chronic obstructive pulmonary disease) History of CAD (coronary artery disease) Surgical History Hx of heart artery stent History of coronary artery bypass graft Family History Mother CAD (coronary artery disease) Sister CAD (coronary artery disease) Other Bleeding disorder Social History Smoking and tobacco/nicotine status: current every day tobacco/nicotine user cigarettes Packs smoked per day: 0.75 Alcohol intake: current Alcohol intake frequency: holidays/special occasions only Alcohol type: beer Substance/Drug Use: never Physical Exam Narrative: EXAM NARRATIVE: General: Alert, no acute distress. Skin: Warm, dry. Head: Normocephalic, atraumatic. Neck: Supple, trachea midline. Eye: Extraocular movements are intact. Ears, nose, mouth and throat: mucosa moist. Cardiovascular: Regular, Normal peripheral perfusion. Respiratory: Lungs are clear to auscultation, respirations are non-labored, breath sounds are equal, Symmetrical chest wall expansion. Gastrointestinal: Soft, Nontender, Non distended, Normal bowel sounds. Musculoskeletal: Normal ROM, no deformity. Neurological: Alert and oriented, No focal neurological deficit observed. Psychiatric: Cooperative, appropriate mood & affect. Course Vital Signs: Vital signs: Vital Signs Temperature 97.5 F L 04/14/24 18:28 Pulse Rate 80 04/14/24 18:28 Respiratory Rate 16 04/14/24 18:28 Blood Pressure 135/81 04/14/24 19:28 Pulse Oximetry 97 04/14/24 18:28 MDM - General Adult Medical Decision Making Medical decision making: Differential diagnosis including but not limited to and based on the above HPI, review of systems and physical exam: Patient states he has swelling all over and hurts all over. I do not see any obvious edema on his legs or hands. Chest x-ray, CBC, BMP and a proBNP were ordered. Orders placed to evaluate differential diagnosis based on the above differential, HPI and physical exam Chest x-ray: Sternotomy wires and surgical clips in place. No obvious focal infiltrates. No pulmonary edema. No overt cardiomegaly.. This was reviewed and interpreted by myself the ER physician. Lab Review: Laboratory results were reviewed and interpreted by myself the emergency room physician. Lab work is unremarkable. Hemoglobin is 15.8. BUN and creatinine are 19 and 0.9. His proBNP is around 4000 which is down considerably from previous measurements. I do not see any evidence of edema or heart failure. I reviewed the patient's medical record. Reexamination: Patient remained stable. No altered mental status. No increased work of breathing. Still with no edema. Assessment and plan: Extremity pain - Discharged home - Discussed plan with patient. Answered any questions. - Evaluation and treatment of this problem were appropriate in the emergency setting. Lab Data 04/14/24 18:20 04/14/24 18:20 Radiology Impressions Chest X-Ray 04/14/24 18:30 IMPRESSION: No focal consolidation. Laboratory Results WBC 3.97 10^3/uL (3.29-11.43) 04/14/24 18:20 RBC 5.05 10^6/uL (3.85-5.65) 04/14/24 18:20 Hgb 15.80 g/dL (11.27-16.99) 04/14/24 18:20 Hct 47.3 % (37-53) 04/14/24 18:20 MCV 93.7 fl (82-101) 04/14/24 18:20 MCH 31.3 pg (27-33) 04/14/24 18:20 MCHC 33.4 g/dL (30-55) 04/14/24 18:20 RDW 13.7 % (12.1-15.1) 04/14/24 18:20 Plt Count 184 10^3/cmm (157-399) 04/14/24 18:20 MPV 9.7 fL (7.4-10.4) 04/14/24 18:20 Neut % (Auto) 62.4 % 04/14/24 18:20 Lymph % (Auto) 18.1 % 04/14/24 18:20 [place] % (Auto) 15.4 % 04/14/24 18:20 Eos % (Auto) 2.3 % 04/14/24 18:20 Baso % (Auto) 1.3 % 04/14/24 18:20 Neut # (Auto) 2.48 10^3/uL (1.8-7.7) 04/14/24 18:20 Lymph # (Auto) 0.7 10^3/uL (0.8-4.8) L 04/14/24 18:20 [place] # (Auto) 0.6 10^3/uL (0.2-0.9) 04/14/24 18:20 Eos # (Auto) 0.1 10^3/uL (0.0-0.8) 04/14/24 18:20 Baso # (Auto) 0.1 10^3/uL (0.0-0.1) 04/14/24 18:20 Nucleated RBC % (auto) 0 % 04/14/24 18:20 Nucleated RBCs # 0.0 /100WBC 04/14/24 18:20 Sodium 138 mmol/L (136-145) 04/14/24 18:20 Potassium 3.7 mmol/L (3.5-5.1) 04/14/24 18:20 Chloride 98 mmol/L (98-107) 04/14/24 18:20 Carbon Dioxide 31 mmol/L (22-29) H 04/14/24 18:20 Anion Gap 12.7 (5-19) 04/14/24 18:20 BUN 19 mg/dL (8-23) 04/14/24 18:20 Creatinine 0.9 mg/dL (0.7-1.2) 04/14/24 18:20 GFR Calculation 83.4 mL/min (90-130) L 04/14/24 18:20 Glucose 97 mg/dL (65-115) 04/14/24 18:20 Calculated Osmolality 288 mOsm/kg (285-295) 04/14/24 18:20 Calcium 8.8 mg/dL (8.5-10.5) 04/14/24 18:20 Total Bilirubin 0.7 mg/dL (0.15-1.2) 04/14/24 18:20 AST 29 U/L (0-40) 04/14/24 18:20 ALT 16 U/L (0-41) 04/14/24 18:20 Alkaline Phosphatase 85 U/L (40-130) 04/14/24 18:20 NT-Pro-B Natriuret Pep 4531 pg/mL (0-125) H 04/14/24 18:20 Total Protein 7.3 g/dL (6.6-8.7) 04/14/24 18:20 Albumin 4.3 g/dL (3.5-5.2) 04/14/24 18:20 Globulin 3.0 g/dL (1.3-4.6) 04/14/24 18:20 All radiology interpretation(s) finalized by discharge Discharge Plan Discharge Patient Disposition: Home Clinical Impression: Extremity pain Condition: Stable Prescriptions: No Action (DME) shower chair See Rx Instructions .Route .MEDSUPPLY Qty: 1 0RF Rx Instructions: As directed (DME) Rollaid with seat See Rx Instructions .Route .MEDSUPPLY Qty: 1 0RF Rx Instructions: As directed metoprolol succinate 25 mg tablet extended release 24 hr 12.5 mg PO QPM Qty: 60 1RF memantine 10 mg tablet 10 mg PO BID Qty: 120 1RF clopidogrel 75 mg tablet 75 mg PO DAILY 30 Days Qty: 90 1RF atorvastatin 40 mg tablet 40 mg PO BEDTIME 30 Days Qty: 90 1RF aspirin 81 mg tablet,delayed release (DR/EC) 81 mg PO DAILY 90 Days Qty: 90 1RF albuterol sulfate 90 mcg/actuation HFA aerosol inhaler 1 inh inhalation Q6H PRN (Reason: shortness of breath or wheezing) Qty: 8.5 1RF terbinafine HCl 250 mg tablet 250 mg PO DAILY 90 Days Qty: 90 0RF hydroxyzine HCl 25 mg tablet 25 mg PO BID PRN (Reason: itching) Qty: 60 0RF escitalopram oxalate 20 mg tablet 20 mg PO DAILY Qty: 90 1RF Discharge Orders: Discharge ED (Routine); Ordered 04/14/24 Ordered By: Barbara Joyce Referrals: Ben Slade MD [Primary Care Provider] - 4-7 days Discharge Diet: Usual diet Discharge Activity: Increase activity as tolerated Patient Instructions: Pain Management Activity Restrictions/Additional Instructions: Thank you for choosing [facility] for your healthcare needs today. Please realize this is an emergency room and that we are providing you with a medical screening exam and this may not be complete and all inclusive of all the testing and or work up that you may need to determine your ailment or severity of your illness. You have been screened and evaluated and felt safe for discharge. Health conditions do change or evolve sometimes and as such it is important that you follow up with your Primary Doctor to be re checked, 3-5 days is a general good time frame for follow up. You are always welcome to return to the ED for re assessment if your symptoms are worsening or you have new concerns Coding Level of Care Code ED It Desktop Support Specialist for Raine Yepez
[2024-04-14 18:51] LABS: Basophils # 0.1 10^3/uL (0.0-0.1); Basophils % 1.3 %; Eosinophils # 0.1 10^3/uL (0.0-0.8); Eosinophils % 2.3 %; Hematocrit 47.3 % (37-53); Lymphocytes # 0.7 10^3/uL (0.8-4.8); Lymphocytes % 18.1 %; Mean Corpuscular HGB Conc 33.4 g/dL (30-55); Mean Corpuscular Hemoglobin 31.3 pg (27-33); Mean Corpuscular Volume 93.7 fl (82-101); Mean Platelet Volume 9.7 fL (7.4-10.4); Monocytes # 0.6 10^3/uL (0.2-0.9); Monocytes % 15.4 %; Neutrophils # 2.48 10^3/uL (1.8-7.7); Neutrophils % 62.4 %; Nucleated Red Blood Cells % 0 %; Platelet Count 184 10^3/cmm (157-399); Red Blood Count 5.05 10^6/uL (3.85-5.65); Red Cell Distribution Width 13.7 % (12.1-15.1); White Blood Count 3.97 10^3/uL (3.29-11.43)
--- NOTE | 2024-04-14 19:01 | PC.NURSE ---
Assumed care of patient from daysilft nurse DINA Thomas
[2024-04-14 19:21] LABS: Alanine Aminotransferase 16 U/L (0-41); Albumin Level 4.3 g/dL (3.5-5.2); Alkaline Phosphatase 85 U/L (40-130); Anion Gap 12.7 (5-19); Aspartate Amino Transferase 29 U/L (0-40); Blood Urea Nitrogen 19 mg/dL (8-23); Calcium 8.8 mg/dL (8.5-10.5); Carbon Dioxide 31 mmol/L (22-29); Chloride 98 mmol/L (98-107); Creatinine Clr Calc Pharmacy 56.3489; Glomerular Filtration Rate 83.4 mL/min (90-130); Glucose 97 mg/dL (65-115); NT Pro B Type Natriuretic Pept 4531 pg/mL (0-125); Osmolality Calculated 288 mOsm/kg (285-295); Potassium 3.7 mmol/L (3.5-5.1); Sodium 138 mmol/L (136-145); Total Bilirubin 0.7 mg/dL (0.15-1.2); Total Protein 7.3 g/dL (6.6-8.7)
[2024-04-14 19:28] VITALS: BP 135/81
[2024-04-14] MEDS: ketorolac 30 mg/mL INJ 15 MG IVP (19:39)
[2024-04-14 20:01] VITALS: PULSE 75; RESP 18; O2SAT 97
== END 2024-04-14 19:44 | disposition home or self-care (01) ==
PROVIDERS: Emergency Provider Emergency Medicine; PCP Family Medicine
DX: M79.602 Pain in left arm (principal); M79.601 Pain in right arm; M79.605 Pain in left leg; M79.604 Pain in right leg
CPT/HCPCS: 71045; 80053; 83880; 85025; 96374; 99284; J1885

== ENCOUNTER 2024-04-26 14:13 | Emergency (ER) | payer MEDICARE, SELFPAY ==
[2024-04-26 14:15] VITALS: BP 122/62; PULSE 68; RESP 18; TEMP 36.4; O2SAT 98; BMI 17.7
[2024-04-26 14:23] VITALS: BP 122/62; PULSE 68; RESP 18; O2SAT 98
--- NOTE | 2024-04-26 14:32 | W.ED.WEAKNES ---
HPI - Weakness General: Chief complaint: Weakness Stated complaint: WEAKNESS Time Seen by Provider: 04/26/24 14:17 History of Present Illness: Patient presents here by EMS from the police department. Patient's only complaint is he needs refills on his medicines and that he cannot keep living outside in the elements due to his age. Patient states has been living outside the last 3 to 4 days because some friends from [place] was supposed to come and pick him up and they have not. Patient went to the police office they can they could transport him down to the crisis center but they called EMS and EMS brought him here. Review of Systems General: Reports: 10 or more systems reviewed and unremarkable except in HPI and below PFSH ED PFSH: Medical History Dementia History of throat cancer Tobacco use disorder, moderate, dependence Uses LifeVest defibrillator Heart failure with reduced ejection fraction Anxiety CAD (coronary artery disease) HLD (hyperlipidemia) HTN (hypertension) with goal to be determined COPD (chronic obstructive pulmonary disease) History of CAD (coronary artery disease) Surgical History Hx of heart artery stent History of coronary artery bypass graft Family History Mother CAD (coronary artery disease) Sister CAD (coronary artery disease) Other Bleeding disorder Social History Smoking and tobacco/nicotine status: current every day tobacco/nicotine user cigarettes Packs smoked per day: 0.75 Alcohol intake: current Alcohol intake frequency: holidays/special occasions only Alcohol type: beer Substance/Drug Use: never Physical Exam Const: COMMON NORMALS: no acute distress, average body habitus, patient oriented x3, no limitations, healthy appearing, alert and well nourished HENMT: COMMON NORMALS: normocephalic, atraumatic, hearing grossly normal bilaterally, external ears normal, Normal external nose present and moist oral mucous membranes HEAD & SCALP: normocephalic and atraumatic NOSE: Normal external nose present EXTERNAL EAR: Yes external ears normal Neck/C-Spine: COMMON NORMALS: no JVD Chest: COMMONS NORMALS: normal inspection of the chest and normal palpation of entire chest wall Resp: COMMON NORMALS: normal respiratory effort, No retractions, No use of accessory muscles and clear to auscultation bilaterally AUSCULTATION: clear to auscultation bilaterally Cardio: COMMON NORMALS: no JVD, regular rate, regular rhythm, S1 normal heart sound present, S2 normal heart sound present, No gallops present (Cardio), No clicks present (Cardio) and No murmurs present (Cardio) RATE: regular rate RHYTHM: regular rhythm HEART SOUNDS: S1 normal heart sound present and S2 normal heart sound present GI: COMMON NORMALS: Normal to inspection, nondistended, normoactive bowel sounds present, Soft to palpation, non-tender, No hepatosplenomegaly present and no masses PALPATION: Yes Soft to palpation and Yes No hepatosplenomegaly present Neuro: COMMON NORMALS: patient oriented x3 SENSORIUM/ORIENTATION: Yes alert Course Vital Signs: Vital signs: Vital Signs Temperature 97.6 F 04/26/24 14:15 Pulse Rate 68 04/26/24 14:23 Respiratory Rate 18 04/26/24 14:23 Blood Pressure 122/62 04/26/24 14:23 Pulse Oximetry 98 04/26/24 14:23 Oxygen Delivery Me thod Room Air 04/26/24 14:23 MDM - Weakness Medical Decision Making Patient's medications will be refilled. Patient be discharged to the crisis center. Medical Records I reviewed the patient's medical records. Lab Data I reviewed the patient's lab results. No radiology studies performed this visit Discharge Plan Discharge Patient Disposition: Home Clinical Impression: Medication refill Condition: Stable Prescriptions: New atorvastatin 40 mg tablet 40 mg PO QPM Qty: 30 0RF Plavix 75 mg tablet 75 mg PO DAILY Qty: 30 0RF Lexapro 20 mg tablet 20 mg PO DAILY Qty: 30 0RF hydroxyzine HCl 25 mg tablet 25 mg PO BID PRN (Reason: itching) Qty: 60 0RF memantine 10 mg tablet 10 mg PO BID Qty: 60 0RF metoprolol succinate 25 mg tablet extended release 24 hr 12.5 mg PO DAILY Qty: 30 0RF albuterol sulfate 90 mcg/actuation HFA aerosol inhaler 1 inh inhalation Q6H PRN (Reason: shortness of breath or wheezing) Qty: 8.5 0RF No Action (DME) shower chair See Rx Instructions .Route .MEDSUPPLY Qty: 1 0RF Rx Instructions: As directed (DME) Rollaid with seat See Rx Instructions .Route .MEDSUPPLY Qty: 1 0RF Rx Instructions: As directed metoprolol succinate 25 mg tablet extended release 24 hr 12.5 mg PO QPM Qty: 60 1RF memantine 10 mg tablet 10 mg PO BID Qty: 120 1RF clopidogrel 75 mg tablet 75 mg PO DAILY 30 Days Qty: 90 1RF atorvastatin 40 mg tablet 40 mg PO BEDTIME 30 Days Qty: 90 1RF albuterol sulfate 90 mcg/actuation HFA aerosol inhaler 1 inh inhalation Q6H PRN (Reason: shortness of breath or wheezing) Qty: 8.5 1RF terbinafine HCl 250 mg tablet 250 mg PO DAILY 90 Days Qty: 90 0RF hydroxyzine HCl 25 mg tablet 25 mg PO BID PRN (Reason: itching) Qty: 60 0RF escitalopram oxalate 20 mg tablet 20 mg PO DAILY Qty: 90 1RF aspirin 81 mg tablet,delayed release (DR/EC) 81 mg PO DAILY 90 Days Qty: 90 1RF Discharge Orders: Discharge ED (Routine); Ordered 04/26/24 Ordered By: Felipe Wylie Referrals: Ben Slade MD [Primary Care Provider] - 1 week Patient Instructions: Medicine Refill (ED) Activity Restrictions/Additional Instructions: You are provided 30 days worth of all your medicines, this was sent to the pharmacy, please follow-up with your primary care physician before the 30 days run out to get refills and have continuity of care. Coding Level of Care Code ED Digital Editor for Raine Yepez
[2024-04-26 15:02] VITALS: BP 122/62; PULSE 68; RESP 18; TEMP 36.4; O2SAT 98
== END 2024-04-26 15:03 | disposition home or self-care (01) ==
PROVIDERS: Emergency Provider Emergency Medicine; PCP Family Medicine
DX: Z76.0 Encounter for issue of repeat prescription (principal); Z79.02 Long term (current) use of antithrombotics/antiplatelets; Z79.82 Long term (current) use of aspirin; F03.90 Unspecified dementia, unspecified severity, without behavioral disturbance, psychotic disturbance, mood disturbance, and anxiety; Z85.89 Personal history of malignant neoplasm of other organs and systems; I11.0 Hypertensive heart disease with heart failure; I50.20 Unspecified systolic (congestive) heart failure; E78.5 Hyperlipidemia, unspecified; J44.9 Chronic obstructive pulmonary disease, unspecified; I25.10 Atherosclerotic heart disease of native coronary artery without angina pectoris; Z95.1 Presence of aortocoronary bypass graft; F17.210 Nicotine dependence, cigarettes, uncomplicated; Z95.810 Presence of automatic (implantable) cardiac defibrillator
CPT/HCPCS: 99283